=== PATIENT | male | born 1975 | race Hispanic/Latino ===

== ENCOUNTER → 2018-07-12 | Outpatient (CLI) | payer MEDICARE ==
--- NOTE | 2018-07-12 14:46 | Diagnostic Imaging Report ---
Abdomen, 2 views. History: Stones. Findings: The intestinal gas pattern is nonobstructive. Evidence of pelvic reconstruction with screws traversing the iliac bones and sacrum. Plate and screw construct of the superior pubic rami also present. There are bilateral double-J ureteral stents in appropriate position. There are no stones along the course of the stents. There no masses or abnormal calcifications. IMPRESSION: 1. No acute abdominal abnormality. 2. No definite calcified renal or ureteral stones identified. Signed by: Dr. Stone Richards DO on 07/12/2018 2:43 PM
== END ==
LOC: RAD 11:47
PROVIDERS: ATTEND Urology
DX: N20.0 Calculus of kidney (principal)
CPT/HCPCS: 74018

== ENCOUNTER → 2018-07-29 | Outpatient (CLI) | payer MEDICARE ==
--- NOTE | 2018-07-29 16:37 | Diagnostic Imaging Report ---
Abdomen, 2 views. History: Renal calculus. Comparison: KUB 07/12/2018. Findings: Bilateral internal ureteral stents are in unchanged position. No definite stone overlying the kidneys or expected course of the ureters. A 1.7 cm hyperdensity likely represents bone which is discontinuous with the left L3 transverse process. Nonobstructive bowel gas pattern. Pelvic bony hardware with screws traversing the iliac bones and sacrum as well as a plate and screw construct of the superior pubic rami are present. IMPRESSION: Bilateral internal ureteral stents. No definite renal or ureteral stone. Signed by: Dr. Clemente Borjas MD on 07/29/2018 4:34 PM
== END ==
LOC: RAD 15:08
PROVIDERS: ATTEND Urology
DX: N20.0 Calculus of kidney (principal)
CPT/HCPCS: 74018

== ENCOUNTER → 2018-09-05 | Day surgery (SDC) | payer MEDICARE ==
[~2018-09-05] MED LIST: ACETAMINOPHEN/CODEINE 300MG - 30MG TAB ONE; CEFAZOLIN SOD 1 GM/NS 50ML 50 ML IV ONE; DEXAMETHASONE SOD PHOS INJ 4 MG/ML VIAL ONE; GLIPIZIDE5 MG PO; IOPAMIDOL 610MG/1ML 300 MG/ML VIAL IV ONE; LIDOCAINE HCL 2% LOCAL INJ 5 ML SDV VIAL INJ ONE; ONDANSETRON HCL INJ 2MG/ML 2ML 2 MG/ML VIAL ONE; PROPOFOL IV EMULSION 10 MG/ML 20 ML VIAL ONE; SEVOFLURANE INHAL SOLN 250 ML PEN BTL ONE
--- OUTSIDE RECORDS SUMMARY | 2018-09-05 12:43 | XMS REPORT | CCD ---
Author Author Auto Generated Organization [facility] Address Unknown Phone Unavailable Care Team Providers Care Property Coordinator Name Role Phone Ramone Palmer CP Allergies, Adverse Reactions, Alerts Substance Reaction Status NKDA Active Problem List Condition Effective Dates Status Diabetes mellitus Resolved Medications Medication Instructions Start Date End Date Status Toradol 30 mg/mL 60 mg, Route: IM, ONCE, Dosing 07/28/2012 07/28/2012 Completed injectable solution Weight 84.091, kg, Start date: 07/28/12 10:16:00, Stop date: 07/28/12 10:16:00 [place] 10/325 oral 1 tab, Route: PO, Dosing Weight 07/28/2012 07/28/2012 Completed tablet 84.091, kg, ONCE, Start date: 07/28/12 10:16:00, Stop date: 07/28/12 10:16:00 Flexeril 10 mg, Route: PO, ONCE, Dosing 07/28/2012 07/28/2012 Completed Weight 84.091, kg, Priority: STAT, Start date: 07/28/12 10:16:00, Stop date: 07/28/12 10:16:00 Naprosyn 500 mg oral 500 mg, 1 tab, PO, BID, PRN, 30 07/28/2012 Ordered tablet tab, Pain, Substitution Allowed [place] 10/325 oral 1 tab, PO, Q6H, PRN, 15 tab, for 07/28/2012 Ordered tablet pain, Substitution Allowed, Maintenance Flexeril 10 mg oral 10 mg, PO, TID, PRN, 30 tab, Muscle 07/28/2012 08/07/2012 Ordered tablet Spasm, Substitution Allowed Vital Signs Most recent to oldest [Reference Range]: 1 Height 170.18 cm (07/28/2012 09:19:00) Weight 84.091 kg (07/28/2012 09:19:00)
--- OUTSIDE RECORDS SUMMARY | 2018-09-05 12:44 | XMS REPORT | CCD ---
Author Author Auto Generated Organization [facility] Address Unknown Phone Unavailable Care Team Providers Care Porter [employer] Name Role Phone Coretta Cleveland CP Allergies, Adverse Reactions, Alerts Substance Reaction Status NKDA Active Problem List Condition Effective Dates Status Diabetes Mellitus Resolved Pseudomonas1, 2, 3 01/03/2013 Active 1urine 01/03/13 2urine 3Problem added by Discern Expert. Medications Medication Instructions Start Date End Date Status Lovenox 80 mg, 0.8 mL, Route: SUB-Q, Drug 11/25/2012 11/25/2012 Completed form: INJ, ONCE, Dosing Weight 79.545, kg, Priority: Routine, Start date: 11/25/12 21:00:00, Stop date: 11/25/12 21:00:00Nurse to ensure documentation of patient education per anticoagulation policy. (Same as: Lovenox) influenza virus 0.5 mL, Route: IM, Drug Form: SUSP, 11/16/2012 11/16/2012 Completed vaccine, inactivated Start date: 11/16/12 9:00:00, Stop date: 11/16/12 9:00:00 pneumococcal 0.5 ml, Route: IM, Drug Form: INJ, 11/16/2012 11/16/2012 Completed 23-valent vaccine Start date: 11/16/12 9:00:00, Stop date: 11/16/12 9:00:00 potassium chloride 40 mEq, 30 mL, Route: PO, Drug 12/17/2012 12/17/2012 Completed 20 mEq/15 mL oral form: LIQ, ONCE, Dosing Weight liquid 79.545, kg, Priority: NOW, Start date: 12/17/12 20:45:00, Stop date: 12/17/12 20:45:00(Same as: Potassium Chloride) Omnipaque 350mg/ml 110 mL, Route: IVP, Drug Form: 11/19/2012 11/19/2012 Completed SOLN, Dosing Weight 79.545, kg, ONCALL, STAT, Start date: 11/19/12 18:05:00, Duration: 1 doses or times, Dose=2.2ml/kg, Max [id number] -- "To be infused by Radiology Staff ONLY" Dose=2.2ml/kg, Max [id number]=[id number] -- "To be infused by Radiology Staff ONLY" NS (Bolus) IV 500 mL 500 mL, Rate: 500 ml/hr, Infuse 12/06/2012 12/06/2012 Completed over: 1 hr, Route: IV, Dosing Weight 79.545 kg, Total Volume: 500, Priority: STAT, Start date: 12/06/12 20:24:00, Duration: 1 doses or times, Stop date: 12/06/12 21:23:00, Bolus Dose Bolus Dose potassium chloride 40 mEq, 30 mL, Route: PO, Drug 11/18/2012 11/18/2012 Completed 20 mEq/15 mL oral form: LIQ, ONCE, Dosing Weight liquid 79.545, kg, Start date: 11/18/12 19:11:00, Stop date: 11/18/12 19:11:00(Same as: Potassium Chloride) Ancef 2 gm, 50 mL, Route: IVPB, Drug 11/15/2012 11/18/2012 Discontinued form: INJ, ABXQ8H, Dosing Weight 79.545, kg, Start date: 11/15/12 16:00:00, Duration: 30 day, Stop date: 12/15/12 8:00:00 vecuronium 10 mg, Route: IVP, Drug form: 11/18/2012 11/18/2012 Completed PDR/INJ, ONCE, Dosing Weight 79.545, kg, Start date: 11/18/12 7:57:00, Stop date: 11/18/12 7:57:00(Same As: Norcuron) Neutra-Phos 2 pkt, Route: PO, Drug Form: 11/17/2012 11/20/2012 Discontinued PDR/REC, Dosing Weight 79.545, kg, Q6H, Start date: 11/17/12 12:00:00, Duration: 5 day, Stop date: 11/22/12 6:00:00(Same as: Neutra-Phos) Each 1.25 gm pkt has 250mg phosphorous. Mix w/2.5oz water and stir. Santyl 1 appl, Route: TOP, Daily, Drug 11/21/2012 12/07/2012 Discontinued form: OINT, Start date: 11/21/12 9:00:00, Duration: 30 day, Stop date: 12/20/12 9:00:00(Same As: Santyl) vancomycin + Sodium 1.25 gm, Route: IVPB, ABXQ8H, 11/19/2012 11/21/2012 Discontinued Chloride 0.9% IV 250 Dosing Weight 79.545, kg, Start mL date: 11/19/12 22:00:00, Stop date: 12/19/12 14:00:00(Same As: Vancocin) Vancomycin FOR IV SET ONLY cefepime 2 gm, Route: IV, Drug form: INJ, 01/03/2013 01/07/2013 Discontinued Q12H, Dosing Weight 79.545, kg, Start date: 01/03/13 21:00:00, Duration: 7 day, Stop date: 01/10/13 9:00:00(Same as: Maxipime) normal saline 0.9% 1,000 mL, Rate: 100 ml/hr, Infuse 11/24/2012 11/24/2012 Discontinued IV 1,000 mL over: 10 hr, Route: IV, Dosing Weight 79.545 kg, Total Volume: 1,000, Start date: 11/24/12 10:07:00, Duration: 30 day, Stop date: 12/24/12 10:06:00 Lactated Ringers 1,000 mL, Rate: 1,000 ml/hr, Infuse 11/15/2012 11/16/2012 Discontinued (Bolus) IV 1,000 mL over: 1 hr, Route: IV, Dosing Weight 79.545 kg, Total Volume: 1,000, Start date: 11/15/12 10:05:00, Duration: 30 day, Stop date: 12/15/12 10:04:00 NS 1,000 mL 1,000 mL, Rate: 125 ml/hr, Infuse 12/15/2012 12/19/2012 Discontinued over: 8 hr, Route: IV, Dosing Weight 79.545 kg, Total Volume: 1,000, Start date: 12/15/12 10:53:00, Stop date: 01/14/13 10:52:00 warfarin 2 mg, 1 tab, Route: PO, Drug form: 01/09/2013 01/09/2013 Completed TAB, Q5PM, Dosing Weight 79.545, kg, Start date: 01/09/13 17:00:00, Duration: 1 doses or times, Stop date: 01/09/13 17:00:00 warfarin 2 mg, 1 tab, Route: PO, Drug form: 01/10/2013 01/10/2013 Completed TAB, Q5PM, Dosing Weight 79.545, kg, Start date: 01/10/13 17:00:00, Duration: 1 doses or times, Stop date: 01/10/13 17:00:00Nurse to ensure documentation of patient education per anticoagulation policy.Avoid large intake of vitamin-K containing foods diet.(Same As: Coumadin) cefazolin 2 gm, Route: IVP, ONCE, Dosing 12/16/2012 12/16/2012 Completed Weight 79.545, kg, Start date: 12/16/12 18:55:00, Stop date: 12/16/12 18:55:00 warfarin 1 mg, 1 tab, Route: PO, Drug form: 01/05/2013 01/05/2013 Completed TAB, Q5PM, Dosing Weight 79.545, kg, Start date: 01/05/13 17:00:00, Duration: 1 doses or times, Stop date: 01/05/13 17:00:00Nurse to ensure documentation of patient education per anticoagulation policy.Avoid large intake of vitamin-K containing foods diet.(Same As: Coumadin) parenteral nutrition 800 mL, Rate: as directed, Route: 11/23/2012 11/24/2012 Discontinued solution IV, Dosing Weight 79.545 kg, Total w/electrolytes 800 Volume: 800, Start date: 11/23/12 mL 18:00:00, Duration: 30 hr, Stop date: 11/24/12 23:59:00Per hospital policy, bag must be changed every 24hr. naloxone 0.04 mg, 0.1 mL, Route: IVP, Drug 11/28/2012 11/28/2012 Discontinued form: INJ, Q2MIN, Dosing Weight 79.545, kg, PRN Narcotic Reversal, Start date: 11/28/12 18:49:00, Duration: 8 doses or times, Stop date: 11/29/12 0:00:00Same as Narcan flumazenil 0.2 mg, 2 mL, Route: IVP, Drug 11/28/2012 11/28/2012 Discontinued form: INJ, PRN, Dosing Weight 79.545, kg, PRN Benzodiazepine Reversal, Initial dose, Start date: 11/28/12 18:49:00, Duration: 30 day, Stop date: 12/28/12 18:48:00(Same as: Romazicon) hydromorphone 0.5 mg, 0.25 mL, Route: IVP, Drug 11/28/2012 11/28/2012 Discontinued form: INJ, Q5Min, Dosing Weight 79.545, kg, PRN Pain Score 7-10, Start date: 11/28/12 18:49:00, Duration: 5 doses or times, Stop date: 11/29/12 0:00:00(Same as: Dilaudid) ondansetron 4 mg, 2 mL, Route: IVP, Drug form: 11/28/2012 11/28/2012 Discontinued INJ, ONCE, Dosing Weight 79.545, kg, PRN Nausea & Vomiting, Start date: 11/28/12 18:49:00(Same as: Zofran) Dilaudid 0.5 mg, 0.25 mL, Route: IV, Drug 11/25/2012 11/25/2012 Completed form: INJ, ONCE, Dosing Weight 79.545, kg, Priority: NOW, Start date: 11/25/12 22:34:00, Stop date: 11/25/12 22:34:00(Same as: Dilaudid) OXYcodone 5 mg 10 mg, 2 tab, Route: PO, Drug form: 11/24/2012 12/08/2012 Discontinued immediate release TAB, Q4H, Dosing Weight 79.545, kg, Start date: 11/24/12 8:00:00, Stop date: 12/24/12 4:00:00(Same as: Roxicodone) calcium chloride + 1,000 mg, 10 mL, Route: IVPB, ONCE, 11/22/2012 11/22/2012 Completed Sodium Chloride 0.9% Dosing Weight 79.545, kg, Priority: IV 50 mL STAT, Start date: 11/22/12 10:23:00, Stop date: 11/22/12 10:23:00 potassium chloride 20 mEq, Route: IVPB, Q2H, Dosing 11/22/2012 11/22/2012 Canceled Weight 79.545, kg, Total dose=40 mEq, Start date: 11/22/12 12:00:00, Duration: 2 doses or times, Stop date: 11/22/12 14:00:00 potassium chloride 20 mEq, 100 mL, Route: IVPB, Drug 11/21/2012 11/21/2012 Completed form: INJ, Q1H, Dosing Weight 79.545, kg, Total iutz=327 mEq, Start date: 11/21/12 17:00:00, Duration: 1 doses or times, Stop date: 11/21/12 17:00:00(Same as: KCL) Infuse no faster than 10 mEq/hr if given peripherally. Sodium Chloride 0.9% 250 mL, Rate: weight caller for use with 11/15/2012 11/16/2012 Discontinued (titrate) 250 mL blood product administration, Dosing Weight 79.545, kg, Route: IV, Total Volume: 250, Duration: 30 day, Stop date: 12/15/12 22:14:00, Replace Every: 24 hr propranolol 10 mg, 1 tab, Route: PO, Drug form: 11/29/2012 01/11/2013 Discontinued TAB, Q8H, Dosing Weight 79.545, kg, Start date: 11/29/12 16:00:00, Duration: 30 day, Stop date: 01/28/13 8:00:00Give with food.(Same as: Inderal) sodium phosphate 15 mmol, Route: IVPB, PRN, Dosing 11/17/2012 11/17/2012 Discontinued Weight 79.545, kg, PRN Abnormal Lab Result, Start date: 11/17/12 8:40:00, Duration: 30 day, Stop date: 12/17/12 8:39:00 NS (Bolus) IV 1,000 1,000 mL, Rate: 1,000 ml/hr, Infuse 12/15/2012 12/15/2012 Completed mL over: 1 hr, Route: IV, Dosing Weight 79.545 kg, Total Volume: 1,000, Priority: STAT, Start date: 12/15/12 10:52:00, Duration: 1 doses or times, Stop date: 12/15/12 11:51:00, Bolus Dose Bolus Dose ondansetron 4 mg, 2 mL, Route: IVP, Drug form: 12/06/2012 12/06/2012 Discontinued INJ, ONCE, Dosing Weight 79.545, kg, PRN Nausea & Vomiting, Start date: 12/06/12 13:21:00(Same as: Zofran) naloxone 0.04 mg, 0.1 mL, Route: IVP, Drug 12/06/2012 12/06/2012 Discontinued form: INJ, Q2MIN, Dosing Weight 79.545, kg, PRN Narcotic Reversal, Start date: 12/06/12 13:21:00, Duration: 8 doses or times, Stop date: 12/07/12 0:00:00Same as Narcan hydromorphone 0.5 mg, 0.25 mL, Route: IVP, Drug 12/06/2012 12/06/2012 Completed form: INJ, Q5Min, Dosing Weight 79.545, kg, PRN Pain Score 7-10, Start date: 12/06/12 13:21:00, Duration: 5 doses or times, Stop date: 12/07/12 0:00:00(Same as: Dilaudid) flumazenil 0.2 mg, 2 mL, Route: IVP, Drug 12/06/2012 12/06/2012 Discontinued form: INJ, PRN, Dosing Weight 79.545, kg, PRN Benzodiazepine Reversal, Initial dose, Start date: 12/06/12 13:21:00, Duration: 30 day, Stop date: 01/05/13 12:20:00(Same as: Romazicon) Omnipaque 350mg/ml 100 mL, Route: IVP, Drug Form: 11/23/2012 11/23/2012 Completed SOLN, Dosing Weight 79.545, kg, ONCALL, STAT, Start date: 11/23/12 14:09:00, Duration: 1 doses or times, Stop date: 11/24/12 0:00:00, Dose=2.2ml/kg, Max [id number] -- "To be infused by Radiology Staff ONLY" Dose=2.2ml/kg, Max umxz=[id number] -- "To be infused by Radiology Staff ONLY"(Same as:Omnipaque 350). Demerol HCl 12.5 mg, Route: IVP, ONCE, Dosing 12/06/2012 12/06/2012 Completed Weight 79.545, kg, Start date: 12/06/12 14:07:00, Stop date: 12/06/12 14:07:00 Dextrose 50% Syringe 25 gm, 50 mL, Route: IVP, Drug 12/16/2012 12/17/2012 Discontinued Form: INJ, Dosing Weight 79.545, kg, PRN, PRN Blood Glucose Results, Start date: 12/16/12 8:00:00, Duration: 30 day, Stop date: 01/15/13 6:59:00 Insulin regular 100 99 mL, Rate: Start Insulin Drip Per 12/16/2012 12/17/2012 Discontinued unit + Sodium ICU Protocol, Dosing Weight 79.545, Chloride 0.9% kg, Route: IVPB, Total Volume: 100, (titrate) 99 mL Start Date: 12/16/12 8:00:00, Duration: 30 day, Stop date: 01/15/13 7:59:00, Replace Every: 24 hr, Initial Insulin Drip Rate (units/hour)=(Fast... Initial Insulin Drip Rate (units/hour)=(Fasting Blood Glucose-60)X0.03 "multiplier". Dextrose 50% Syringe 12.5 gm, 25 mL, Route: IVP, Drug 12/16/2012 12/17/2012 Discontinued Form: INJ, Dosing Weight 79.545, kg, PRN, PRN Blood Glucose Results, Start date: 12/16/12 8:00:00, Duration: 30 day, Stop date: 01/15/13 6:59:00 Loperamide HCl Oral Loperamide HCl Oral Suspension 12/29/2012 01/04/2013 Discontinued Suspension 1mg/7.5ml 1mg/7.5ml, 2 mg, 15 mL, Drug form: MISC, Route: PO, Q4H, 12/29/12 23:30:00, Stop date: 01/28/13 20:00:00 ibuprofen 800 mg, 1 tab, Route: PO, Drug 11/28/2012 11/28/2012 Completed form: TAB, ONCE, Dosing Weight 79.545, kg, Start date: 11/28/12 8:59:00, Stop date: 11/28/12 8:59:00(Same as: Motrin)"Do Not Crush" Take with food. Versed 5 mg, 5 mL, Route: IVP, Drug form: 11/18/2012 11/19/2012 Completed INJ, ONCALL, Dosing Weight 79.545, kg, Start date: 11/18/12 8:00:00, Duration: 30 day, Stop date: 12/18/12 7:59:00(Same as: Versed) fentanyl 100 microgram, 2 mL, Route: IVP, 11/18/2012 11/18/2012 Completed Drug form: INJ, ONCE, Dosing Weight 79.545, kg, Start date: 11/18/12 7:57:00, Stop date: 11/18/12 7:57:00(Same as: Sublimaze) Preservative free. calcium gluconate + 2 gm, 20 mL, Route: IVPB, ONCE, 11/24/2012 11/24/2012 Completed Sodium Chloride 0.9% Dosing Weight 79.545, kg, Start IV 100 mL date: 11/24/12 7:25:00, Duration: 1 doses or times, Stop date: 11/24/12 7:25:00, For Ionized Ca=1.0 - 1.03 mMol/L For Ionized Ca=1.0 - 1.03 mMol/L Insulin regular 4 unit, Route: SUB-Q, PRN, Dosing 11/20/2012 11/20/2012 Discontinued Weight 79.545, kg, PRN Abnormal Lab Result, Start date: 11/20/12 9:34:00, Duration: 30 day, Stop date: 12/20/12 9:33:00, For FSBG 126mg/dL - 140mg/dL For FSBG 126mg/dL - 140mg/dL Dextrose 50% Syringe 50 mL, Route: IVP, Dosing Weight 11/20/2012 11/20/2012 Discontinued 79.545, kg, PRN, PRN Abnormal Lab Result, Start date: 11/20/12 9:34:00, Duration: 30 day, Stop date: 12/20/12 9:33:00, For FSBG < 40mg/dL For FSBG < 40mg/dL Dextrose 50% Syringe 25 mL, Route: IVP, Dosing Weight 11/20/2012 11/20/2012 Discontinued 79.545, kg, PRN, PRN Abnormal Lab Result, Start date: 11/20/12 9:34:00, Duration: 30 day, Stop date: 12/20/12 9:33:00, For FSBG 40mg/dL - 60mg/dL For FSBG 40mg/dL - 60mg/dL Insulin regular 8 unit, Route: SUB-Q, PRN, Dosing 11/20/2012 11/20/2012 Discontinued Weight 79.545, kg, PRN Abnormal Lab Result, Start date: 11/20/12 9:34:00, Duration: 30 day, Stop date: 12/20/12 9:33:00, For FSBG > 161mg/dL For FSBG > 161mg/dL Insulin regular 6 unit, Route: SUB-Q, PRN, Dosing 11/20/2012 11/20/2012 Discontinued Weight 79.545, kg, PRN Abnormal Lab Result, Start date: 11/20/12 9:34:00, Duration: 30 day, Stop date: 12/20/12 9:33:00, For FSBG 141mg/dL - 160mg/dL For FSBG 141mg/dL - 160mg/dL Chloraseptic 1.4% 1 spray, Route: TOP, Q2H, Drug 11/28/2012 01/11/2013 Discontinued spray form: SPRY, PRN Sore Throat, Start date: 11/28/12 12:25:00, Duration: 30 day, Stop date: 01/27/13 12:24:00Chloraseptic [place](Same as: Chloraseptic, Sore Throat [place]) cefepime 1 gm, Route: IVPB, Drug form: INJ, 12/17/2012 12/23/2012 Discontinued ABXQ6H, Dosing Weight 79.545, kg, (CrCl >/=50 ml/min), Start date: 12/17/12 12:00:00, Duration: 30 day, Stop date: 01/16/13 4:00:00(Same As: Maxipime) insulin detemir 30 unit, 0.3 mL, Route: SUB-Q, Drug 11/23/2012 11/25/2012 Discontinued form: INJ, Q12H, Dosing Weight 79.545, kg, Start date: 11/23/12 9:49:00, Duration: 30 day, Stop date: 12/23/12 9:00:00Same as Levemir "single patient use only" Lactated Ringers IV 1,000 mL, Rate: 125 ml/hr, Infuse 11/15/2012 11/17/2012 Discontinued 1,000 mL over: 8 hr, Route: IV, Dosing Weight 79.545 kg, Total Volume: 1,000, Start date: 11/15/12 21:15:00, Duration: 30 day, Stop date: 12/15/12 21:14:00 Sodium Chloride 0.9% 250 mL, Rate: weight caller for use with 11/15/2012 11/19/2012 Discontinued (titrate) 250 mL blood product administration, Dosing Weight 79.545, kg, Route: IV, Total Volume: 250, Duration: 30 day, Stop date: 12/15/12 7:42:00, Replace Every: 24 hr magnesium sulfate 2 gm, 50 mL, Route: IVPB, Drug 01/03/2013 01/03/2013 Completed 2gm / NS 50ml form: INJ, ONCE, Dosing Weight (premixed) 79.545, kg, Start date: 01/03/13 10:26:00, Duration: 2 hr, Stop date: 01/03/13 10:26:00 celecoxib 100 mg 200 mg, 2 cap, PO, Q12H, 1 cap, 01/10/2013 Ordered oral capsule Substitution Allowed, CAP Insulin regular 6 unit, 0.06 mL, Route: SUB-Q, Drug 11/15/2012 11/17/2012 Discontinued form: SOLN, PRN, Dosing Weight 79.545, kg, PRN Abnormal Lab Result, Start date: 11/15/12 7:42:00, Duration: 30 day, Stop date: 12/15/12 7:41:00, For FSBG 141mg/dL - 160mg/dL For FSBG 141mg/dL - 160mg/dL(Same as: Humulin R) Roll in palms of hands gently; Do not shake vigorously. "single patient use only"(Restricted to patients requiring a dose > 60 units) Stable for 28 days at room temperatureExpires in days from Date Insulin regular 4 unit, 0.04 mL, Route: SUB-Q, Drug 11/15/2012 11/17/2012 Discontinued form: SOLN, PRN, Dosing Weight 79.545, kg, PRN Abnormal Lab Result, Start date: 11/15/12 7:42:00, Duration: 30 day, Stop date: 12/15/12 7:41:00, For FSBG 126mg/dL - 140mg/dL For FSBG 126mg/dL - 140mg/dL(Same as: Humulin R) Roll in palms of hands gently; Do not shake vigorously. "single patient use only"(Restricted to patients requiring a dose > 60 units) Stable for 28 days at room temperatureExpires in days from Date Dextrose 50% Syringe 12.5 gm, 25 mL, Route: IVP, Drug 11/15/2012 11/15/2012 Discontinued Form: INJ, Dosing Weight 79.545, kg, PRN, PRN Abnormal Lab Result, Start date: 11/15/12 7:42:00, Duration: 30 day, Stop date: 12/15/12 7:41:00, For FSBG 40mg/dL - 60mg/dL For FSBG 40mg/dL - 60mg/dL Insulin regular 8 unit, 0.08 mL, Route: SUB-Q, Drug 11/15/2012 11/17/2012 Discontinued form: SOLN, PRN, Dosing Weight 79.545, kg, PRN Abnormal Lab Result, Start date: 11/15/12 7:42:00, Duration: 30 day, Stop date: 12/15/12 7:41:00, For FSBG > 161mg/dL For FSBG > 161mg/dL(Same as: Humulin R) Roll in palms of hands gently; Do not shake vigorously. "single patient use only"(Restricted to patients requiring a dose > 60 units) Stable for 28 days at room temperatureExpires in days from Date Dextrose 50% Syringe 25 gm, 50 mL, Route: IVP, Drug 11/15/2012 11/15/2012 Discontinued Form: INJ, Dosing Weight 79.545, kg, PRN, PRN Abnormal Lab Result, Start date: 11/15/12 7:42:00, Duration: 30 day, Stop date: 12/15/12 7:41:00, For FSBG < 40mg/dL For FSBG < 40mg/dL Lomotil oral tablet 2 tab, PO, Q6H, 1 tab, Substitution 01/10/2013 Ordered Allowed, Maintenance, TAB Diflucan 400 mg, 2 tab, Route: NG, Drug 11/29/2012 12/05/2012 Discontinued form: TAB, Q24H, Dosing Weight 79.545, kg, Start date: 11/29/12 12:00:00, Duration: 30 day, Stop date: 12/28/12 12:00:00(Same as: Diflucan) magnesium sulfate 2 gm, 50 mL, Route: IVPB, Drug 11/16/2012 11/16/2012 Completed form: INJ, Q2H, Dosing Weight 79.545, kg, Total dose=4 gm, Priority: Routine, Start date: 11/16/12 0:15:00, Duration: 1 doses or times, Stop date: 11/16/12 0:15:00 Remove - lidocaine 1 patch, Route: TOP, Daily, Drug 12/19/2012 12/24/2012 Discontinued topical patch form: ERFILM, Start date: 12/19/12 11:00:00, Duration: 30 day, Stop date: 01/18/13 9:00:00 [place] 10/325 oral 1 tab, Route: PO, Drug Form: TAB, 12/22/2012 01/11/2013 Discontinued tablet Dosing Weight 79.545, kg, Q4H, Start date: 12/22/12 22:00:00, Stop date: 01/21/13 18:00:00Do not exceed 4gm/day of acetaminophen. (Same as: [place] 325/10) potassium chloride 20 mEq, 100 mL, Route: IVPB, Q2H, 11/19/2012 11/19/2012 Completed Dosing Weight 79.545, kg, Total dose=40 mEq, Start date: 11/19/12 6:00:00, Duration: 2 doses or times, Stop date: 11/19/12 8:00:00(Same as: KCL) Infuse no faster than 10 mEq/hr if given peripherally. magnesium sulfate 2 gm, 50 mL, Route: IVPB, Drug 11/19/2012 11/19/2012 Completed form: INJ, Q2H, Dosing Weight 79.545, kg, Total dose=2 gm, Start date: 11/19/12 6:00:00, Duration: 1 doses or times, Stop date: 11/19/12 6:00:00 Lactated Ringers 1,000 mL, Rate: 1,000 ml/hr, Infuse 11/19/2012 11/21/2012 Discontinued (Bolus) IV 1,000 mL over: 1 hr, Route: IV, Dosing Weight 79.545 kg, Total Volume: 1,000, Start date: 11/19/12 8:53:00, Duration: 30 day, Stop date: 12/19/12 8:52:00 bacitracin topical Route: TOP, QID, Drug form: OINT, 11/16/2012 01/08/2013 Discontinued Start date: 11/16/12 21:09:00, Duration: 30 day, Stop date: 01/15/13 21:00:00 famotidine 20 mg, 2 mL, Route: IVPB, Drug 11/15/2012 11/24/2012 Discontinued form: INJ, Q12H, Dosing Weight 79.545, kg, Start date: 11/15/12 9:00:00, Duration: 30 day, Stop date: 12/14/12 21:00:00(Same as: Pepcid)Can be dilute in 5-10cc NS IVP: Slow IV push over at least 2 minutes. labetalol 10 mg, 2 mL, Route: IVP, Drug form: 11/22/2012 11/23/2012 Completed INJ, Q15Min, Dosing Weight 79.545, kg, PRN Hypertension, Start date: 11/22/12 17:46:00, Duration: 3 doses or times, Stop date: 11/23/12 0:00:00 OXYcodone 5 mg/5 mL 5 mg, 5 mL, Route: PO, Drug form: 11/17/2012 11/20/2012 Discontinued oral solution LIQ, Q4H, Dosing Weight 79.545, kg, Start date: 11/17/12 4:00:00, Duration: 30 day, Stop date: 12/17/12 0:00:00(Same as: 'Roxicodone) Flomax 0.4 mg, 1 cap, Route: PO, Drug 12/09/2012 12/19/2012 Discontinued form: CAP, After Dinner, Dosing Weight 79.545, kg, Start date: 12/09/12 17:00:00, Duration: 30 day, Stop date: 01/08/13 16:59:00(Same As: Flomax) "Do Not Crush" [place] 10 oral 1 tab, PO, Q4H, 1 tab, Substitution 01/10/2013 Ordered tablet Allowed, Maintenance, TAB Lovenox 80 mg, 0.8 mL, Route: SUB-Q, Drug 11/26/2012 11/29/2012 Discontinued form: INJ, Q12H, Dosing Weight 79.545, kg, Start date: 11/26/12 21:00:00, Duration: 30 day, Stop date: 12/26/12 9:00:00Nurse to ensure documentation of patient education per anticoagulation policy. (Same as: Lovenox) Coumadin 5 mg, 1 tab, Route: PO, Drug form: 12/30/2012 12/30/2012 Completed TAB, Daily, Start date: 12/30/12 21:00:00, Duration: 1 doses or times, Stop date: 12/30/12 21:00:00Nurse to ensure documentation of patient education per anticoagulation policy.Avoid large intake of vitamin-K containing foods diet.(Same As: Coumadin) calcium gluconate + 2 gm, 20 mL, Route: IVPB, ONCE, 11/21/2012 11/21/2012 Completed Sodium Chloride 0.9% Dosing Weight 79.545, kg, Start IV 80 mL date: 11/21/12 14:16:00, Duration: 1 doses or times, Stop date: 11/21/12 14:16:00, For Ionized Ca=1.0 - 1.03 mMol/L For Ionized Ca=1.0 - 1.03 mMol/L Sodium Chloride 0.9% 250 mL, Rate: weight caller for use with 11/16/2012 11/16/2012 Discontinued (titrate) 250 mL blood product administration, Dosing Weight 79.545, kg, Route: IV, Total Volume: 250, Duration: 30 day, Stop date: 12/16/12 4:00:00, Replace Every: 24 hr FENTanyl - one time 50 microgram, 1 mL, Route: IVP, 11/22/2012 11/22/2012 Completed ICU bolus dose Drug form: INJ, ONCE, Dosing Weight 79.545, kg, Start date: 11/22/12 17:46:00, Stop date: 11/22/12 17:46:00(Same as: Sublimaze) Preservative free. Lyrica 100 mg, 2 cap, Route: PO, Drug 11/17/2012 12/31/2012 Discontinued form: CAP, Q8H, Dosing Weight 79.545, kg, Start date: 11/17/12 0:29:00, Duration: 30 day, Stop date: 01/16/13 0:00:00Same as Lyrica Lantus 20 unit, 0.2 mL, Route: SUB-Q, Drug 01/09/2013 01/11/2013 Discontinued form: INJ, Before Breakfast, Dosing Weight 79.545, kg, Start date: 01/09/13 7:30:00, Duration: 30 day, Stop date: 02/07/13 7:30:00Same as Lantus Solostar PEN"single patient use only" Stable for 28 days at room temperature.Expires in days from Date Lactated Ringers 500 mL, Rate: 1,000 ml/hr, Infuse 12/16/2012 12/16/2012 Completed (Bolus) IV 500 mL over: 0.5 hr, Route: IV, Dosing Weight 79.545 kg, Total Volume: 500, Start date: 12/16/12 23:29:00, Duration: 1 doses or times, Stop date: 12/16/12 23:58:00 Zofran 4 mg, 2 mL, Route: IV, Drug form: 01/03/2013 01/11/2013 Discontinued INJ, Q8H, Dosing Weight 79.545, kg, PRN Nausea, Start date: 01/03/13 21:22:00, Duration: 30 day, Stop date: 02/02/13 21:21:00(Same as: Zofran) vancomycin 2 gm, 500 mL, Route: IVPB, Drug 11/19/2012 11/19/2012 Completed form: SOLN, ONCE, Dosing Weight 79.545, kg, Start date: 11/19/12 8:53:00, Stop date: 11/19/12 8:53:00Same as: Vancocin Saline Flush 0.9% 5 mL, Route: IVP, Drug Form: INJ, 11/15/2012 01/11/2013 Discontinued kg, PRN, PRN Line Flush, Administer at least once every 12 hours, Start date: 11/15/12 4:06:00, Duration: 30 day, Stop date: 02/13/13 3:05:00(Same as: BD Posiflush) methadone 5 mg, 1 tab, Route: PO, Drug form: 12/19/2012 12/20/2012 Discontinued TAB, Q8H, Dosing Weight 79.545, kg, Priority: NOW, Start date: 12/19/12 12:21:00, Duration: 30 day, Stop date: 01/18/13 8:00:00(Same as: Dolophine) Flomax 0.4 mg, 1 cap, Route: PO, Drug 01/07/2013 01/11/2013 Discontinued form: CAP, After Dinner, Dosing Weight 79.545, kg, Start date: 01/07/13 17:00:00, Duration: 30 day, Stop date: 02/05/13 17:00:00(Same As: Flomax) "Do Not Crush" metFORmin 500 mg 500 mg, 1 tab, Route: PO, Drug 11/30/2012 01/11/2013 Discontinued oral tablet form: TAB, BID, Dosing Weight 79.545, kg, Start date: 11/30/12 17:00:00, Duration: 30 day, Stop date: 01/29/13 9:00:00(Same as: Glucophage) Take with meal D5W 1/2NS + KCL 1,000 mL, Rate: 110 ml/hr, Infuse 12/04/2012 12/06/2012 Discontinued 20mEq/L 1000ml over: 9.1 hr, Route: IV, Dosing (Premix) 1,000 mL Weight 79.545 kg, Total Volume: 1,000, Start date: 12/04/12 0:01:00, Duration: 30 day, Stop date: 01/03/13 0:00:00PREMIX IV - Do Not Alter OXYcodone 5 mg 5 mg, 1 tab, Route: PO, Drug form: 11/22/2012 11/23/2012 Discontinued immediate release TAB, Q4H, Dosing Weight 79.545, kg, PRN Pain, Start date: 11/22/12 10:05:00, Duration: 30 day, Stop date: 12/22/12 10:04:00(Same as: Roxicodone) Lantus 30 unit, Route: SUB-Q, Drug form: 11/26/2012 11/25/2012 Canceled SOLN, Daily, Dosing Weight 79.545, kg, Start date: 11/26/12 9:00:00, Duration: 30 day, Stop date: 12/25/12 9:00:00 NS (Bolus) IV 1,000 1,000 mL, Rate: 1,000 ml/hr, Infuse 12/07/2012 12/07/2012 Completed mL over: 1 hr, Route: IV, Dosing Weight 79.545 kg, Total Volume: 1,000, Priority: STAT, Start date: 12/07/12 3:41:00, Duration: 1 doses or times, Stop date: 12/07/12 4:40:00, Bolus Dose Bolus Dose magnesium sulfate 2 gm, 50 mL, Route: IVPB, Drug 12/17/2012 12/17/2012 Completed form: INJ, Q2H, Dosing Weight 79.545, kg, Total dose=4 gm, Start date: 12/17/12 0:00:00, Duration: 2 doses or times, Stop date: 12/17/12 2:00:00 magnesium oxide 400 mg, 1 tab, Route: PO, Drug 12/25/2012 12/25/2012 Completed form: TAB, ONCE, Dosing Weight 79.545, kg, Start date: 12/25/12 15:45:00, Stop date: 12/25/12 15:45:00(Same as: Mag-Ox 400)Magnesium oxide 449xy=117wk elemental magnesiumDose=____mg magnesium oxide (___mg elemental magnesium) warfarin 2.5 mg, 1 tab, Route: PO, Drug 01/03/2013 01/03/2013 Completed form: TAB, Q5PM, Dosing Weight 79.545, kg, Start date: 01/03/13 17:00:00, Duration: 1 doses or times, Stop date: 01/03/13 17:00:00Nurse to ensure documentation of patient education per anticoagulation policy.Avoid large intake of vitamin-K containing foods diet.(Same As: Coumadin) ondansetron 4 mg, 2 mL, Route: IVP, Drug form: 11/17/2012 11/18/2012 Discontinued INJ, ONCE, Dosing Weight 79.545, kg, PRN Nausea & Vomiting, Start date: 11/17/12 18:28:00(Same as: Zofran) naloxone 0.04 mg, 0.1 mL, Route: IVP, Drug 11/17/2012 11/18/2012 Completed form: INJ, Q2MIN, Dosing Weight 79.545, kg, PRN Narcotic Reversal, Start date: 11/17/12 18:28:00, Duration: 8 doses or times, Stop date: 11/18/12 0:00:00Same as Narcan flumazenil 0.2 mg, 2 mL, Route: IVP, Drug 11/17/2012 11/18/2012 Discontinued form: INJ, PRN, Dosing Weight 79.545, kg, PRN Benzodiazepine Reversal, Initial dose, Start date: 11/17/12 18:28:00, Duration: 30 day, Stop date: 12/17/12 18:27:00(Same as: Romazicon) hydromorphone 0.5 mg, 0.25 mL, Route: IVP, Drug 11/17/2012 11/18/2012 Completed form: INJ, Q5Min, Dosing Weight 79.545, kg, PRN Pain Score 7-10, Start date: 11/17/12 18:28:00, Duration: 5 doses or times, Stop date: 11/18/12 0:00:00(Same as: Dilaudid) labetalol 5 mg, 1 mL, Route: IVP, Drug form: 11/17/2012 11/18/2012 Completed INJ, Q5Min, Dosing Weight 79.545, kg, PRN Elevated BP, Start date: 11/17/12 18:28:00, Duration: 5 doses or times, Stop date: 11/18/12 0:00:00 FENTanyl 1000 mcg in 1,000 microgram, 20 mL, Rate: 11/15/2012 11/16/2012 Discontinued 20 mL (titrate) IV Titrate., Dosing Weight 79.545, kg, 1,000 microgram Route: IV, Total Volume: 20, Duration: 30 day, Stop date: 12/15/12 8:23:00, Replace Every: 24 hr magnesium oxide 400 mg, 1 tab, Route: PO, Drug 12/13/2012 12/13/2012 Completed form: TAB, ONCE, Dosing Weight 79.545, kg, Start date: 12/13/12 8:56:00, Stop date: 12/13/12 8:56:00(Same as: Mag-Ox 400)Magnesium oxide [id number] elemental magnesiumDose=____mg magnesium oxide (___mg elemental magnesium) Omnipaque 350mg/ml 100 mL, Route: IVP, Drug Form: 11/28/2012 11/28/2012 Completed SOLN, Dosing Weight 79.545, kg, ONCALL, STAT, Start date: 11/28/12 11:59:00, Duration: 1 doses or times, Stop date: 11/29/12 0:00:00, Dose=2.2ml/kg, Max ctxk=[id number] -- "To be infused by Radiology Staff ONLY" Dose=2.2ml/kg, Max ldzr=384wf -- "To be infused by Radiology Staff ONLY"(Same as:Omnipaque 350). Dakins Quarter 1 appl, Route: TOP, Drug Form: 12/18/2012 01/08/2013 Discontinued Strength Solution SOLN, Dosing Weight 79.545, kg, Daily, Start date: 12/18/12 9:00:00, Duration: 30 day, Stop date: 01/16/13 9:00:00(Dakin's (0.125%=1/4 strength) 473ml top SOLN) For external use only. Note: quarter strength=0.125% sodium hypochlorite. Sodium Chloride 0.9% 250 mL, Rate: weight caller for use with 11/21/2012 12/06/2012 Discontinued (titrate) 250 mL blood product administration, Dosing Weight 79.545, kg, Route: IV, Total Volume: 250, Duration: 30 day, Stop date: 12/21/12 11:35:00, Replace Every: 24 hr magnesium sulfate 2 2 gm, 50 mL, Route: IVPB, Drug 01/04/2013 01/04/2013 Completed gm in Water 50 ml form: INJ, ONCE, Dosing Weight 79.545, kg, Start date: 01/04/13 15:19:00, Duration: 2 hr, Stop date: 01/04/13 15:19:00 Visipaque 320mg/ml 90 mL, Route: IVP, Drug Form: SOLN, 11/19/2012 11/19/2012 Discontinued Dosing Weight 79.545, kg, ONCALL, STAT, Start date: 11/19/12 9:05:00, Duration: 1 doses or times, Stop date: 11/20/12 0:00:00, Dose=2.2ml/kg, Max [id number] -- "To be infused by Radiology Staff ONLY" Dose=2.2ml/kg, Max btdq=506gn -- "To be infused by Radiology Staff ONLY"(Same as: Visipaque). loperamide 2 mg, 1 cap, Route: PO, Drug form: 01/03/2013 01/11/2013 Discontinued CAP, Q4H, Dosing Weight 79.545, kg, Start date: 01/03/13 16:00:00, Duration: 30 day, Stop date: 02/02/13 12:00:00 Robaxin 1,000 mg, 2 tab, Route: PO, Drug 12/15/2012 01/11/2013 Discontinued form: TAB, Q8H, Dosing Weight 79.545, kg, Start date: 12/15/12 16:00:00, Stop date: 01/14/13 8:00:00(Same as:Robaxin) cefazolin 2 gm, Route: IVPB, ONCE, Dosing 12/06/2012 12/06/2012 Completed Weight 79.545, kg, Start date: 12/06/12 10:06:00, Duration: 1 doses or times, Stop date: 12/06/12 10:06:00 loperamide 2 mg, 1 cap, Route: PO, Drug form: 01/04/2013 01/04/2013 Completed CAP, ONCE, Start date: 01/04/13 1:00:00, Stop date: 01/04/13 1:00:00(Same as: Imodium) MAX adult dose is 8 caps/day potassium chloride 20 mEq, 100 mL, Route: IVPB, Drug 11/21/2012 11/21/2012 Completed form: INJ, Q1H, Dosing Weight 79.545, kg, Total nqpc=918 mEq, Start date: 11/21/12 15:00:00, Duration: 2 doses or times, Stop date: 11/21/12 16:00:00(Same as: KCL) Infuse no faster than 10 mEq/hr if given peripherally. magnesium sulfate 2 gm, 50 mL, Route: IVPB, Drug 12/20/2012 12/20/2012 Completed 2gm / NS 50ml form: INJ, ONCE, Dosing Weight (premixed) 79.545, kg, Start date: 12/20/12 10:52:00, Duration: 2 hr, Stop date: 12/20/12 10:52:00 Lovenox 80 mg, 0.8 mL, Route: SUB-Q, Drug 11/26/2012 11/26/2012 Completed form: INJ, ONCE, Dosing Weight 79.545, kg, Priority: STAT, Start date: 11/26/12 10:23:00, Stop date: 11/26/12 10:23:00Nurse to ensure documentation of patient education per anticoagulation policy. (Same as: Lovenox) NS (Bolus) IV 1,000 1,000 mL, Rate: 1,000 ml/hr, Infuse 12/10/2012 12/10/2012 Completed mL over: 1 hr, Route: IV, Dosing Weight 79.545 kg, Total Volume: 1,000, Priority: STAT, Start date: 12/10/12 14:22:00, Duration: 1 doses or times, Stop date: 12/10/12 15:21:00, Bolus Dose Bolus Dose Dextrose 50% Syringe 25 mL, Route: IVP, Dosing Weight 11/15/2012 11/15/2012 Discontinued 79.545, kg, PRN, PRN Abnormal Lab Result, Start date: 11/15/12 11:41:00, Duration: 30 day, Stop date: 12/15/12 11:40:00, For FSBG 40mg/dL - 60mg/dL For FSBG 40mg/dL - 60mg/dL Dextrose 50% Syringe 50 mL, Route: IVP, Dosing Weight 11/15/2012 11/15/2012 Discontinued 79.545, kg, PRN, PRN Abnormal Lab Result, Start date: 11/15/12 11:41:00, Duration: 30 day, Stop date: 12/15/12 11:40:00, For FSBG < 40mg/dL For FSBG < 40mg/dL D5W 1/2NS + KCL 1,000 mL, Rate: 125 ml/hr, Infuse 11/26/2012 11/26/2012 Deleted 20mEq/L 1000ml over: 8 hr, Route: IV, Dosing (Premix) 1000 mL Weight 79.545 kg, Total Volume: 1,000, Start date: 11/26/12 11:59:00, Duration: 30 day, Stop date: 12/26/12 11:58:00 Visipaque 320mg/ml 0 mL, Route: IVP, Drug Form: SOLN, 11/19/2012 11/19/2012 Deleted Dosing Weight 79.545, kg, ONCALL, STAT, Start date: 11/19/12 9:05:00, Duration: 1 doses or times, Dose=2.2ml/kg, Max smxb=463ej -- "To be infused by Radiology Staff ONLY" Dose=2.2ml/kg, Max uqkr=243si -- "To be infused by Radiology Staff ONLY" Versed 4 mg, 4 mL, Route: IV, Drug form: 11/18/2012 11/18/2012 Completed INJ, ONCE, Dosing Weight 79.545, kg, Priority: STAT, Start date: 11/18/12 16:02:00, Stop date: 11/18/12 16:02:00(Same as: Versed) acetaminophen-hydroc 15 mL, Route: PO, Drug Form: SOLN, 12/04/2012 12/04/2012 Discontinued odone 300 mg-10 Dosing Weight 79.545, kg, Q4H, PRN mg/15 mL oral liquid Pain Score 4-6, Start date: 12/04/12 15:12:00, Duration: 30 day, Stop date: 01/03/13 15:11:00 hydromorphone 0.5 mg, Route: IVP, Q5Min, Dosing 12/04/2012 12/04/2012 Completed Weight 79.545, kg, PRN Pain Score 7-10, Start date: 12/04/12 15:12:00, Duration: 5 doses or times, Stop date: Limited # of times ketorolac 30 mg, Route: IVP, ONCE, Dosing 12/04/2012 12/04/2012 Completed Weight 79.545, kg, Start date: 12/04/12 15:12:00, Duration: 1 doses or times, Stop date: 12/04/12 15:12:00 acetaminophen-10 1,000 mg, Route: IV, Drug form: 12/04/2012 12/04/2012 Discontinued mg/mL INTRAVENOUS INJ, ONCE, Dosing Weight 79.545, solution kg, PRN Pain Score 4-6, Start date: 12/04/12 15:12:00, Duration: 1 doses or times, Stop date: Limited # of times, Infuse over 15 minutes (for patient weight 50 kg or greater) Infuse over 15 minutes (for patient weight 50 kg or greater) labetalol 5 mg, Route: IVP, Q5Min, Dosing 12/04/2012 12/04/2012 Discontinued Weight 79.545, kg, PRN Elevated BP, Start date: 12/04/12 15:12:00, Duration: 5 doses or times, Stop date: Limited # of times ondansetron 4 mg, Route: IVP, ONCE, Dosing 12/04/2012 12/04/2012 Discontinued Weight 79.545, kg, PRN Nausea & Vomiting, Start date: 12/04/12 15:12:00 naloxone 0.04 mg, Route: IVP, Q2MIN, Dosing 12/04/2012 12/04/2012 Discontinued Weight 79.545, kg, PRN Narcotic Reversal, Start date: 12/04/12 15:12:00, Duration: 8 doses or times, Stop date: Limited # of times flumazenil 0.2 mg, Route: IVP, PRN, Dosing 12/04/2012 12/04/2012 Discontinued Weight 79.545, kg, PRN Benzodiazepine Reversal, Initial dose, Start date: 12/04/12 15:12:00, Duration: 30 day, Stop date: 01/03/13 14:11:00 cefepime 1 gm, Route: IVPB, Drug form: INJ, 11/18/2012 11/28/2012 Discontinued ABXQ6H, Dosing Weight 79.545, kg, (CrCl >/=50 ml/min), Start date: 11/18/12 21:00:00, Stop date: 12/18/12 15:00:00(Same As: Maxipime) warfarin 5 mg, 1 tab, Route: PO, Drug form: 01/01/2013 01/01/2013 Completed TAB, Q5PM, Dosing Weight 79.545, kg, Start date: 01/01/13 17:00:00, Duration: 1 doses or times, Stop date: 01/01/13 17:00:00Nurse to ensure documentation of patient education per anticoagulation policy.Avoid large intake of vitamin-K containing foods diet.(Same As: Coumadin) warfarin 2.5 mg, 1 tab, Route: PO, Drug 01/04/2013 01/04/2013 Completed form: TAB, Q5PM, Dosing Weight 79.545, kg, Start date: 01/04/13 17:00:00, Duration: 1 doses or times, Stop date: 01/04/13 17:00:00Nurse to ensure documentation of patient education per anticoagulation policy.Avoid large intake of vitamin-K containing foods diet.(Same As: Coumadin) Lantus 5 unit, 0.05 mL, Route: SUB-Q, Drug 11/29/2012 11/29/2012 Completed form: INJ, ONCE, Dosing Weight 79.545, kg, Start date: 11/29/12 10:28:00, Stop date: 11/29/12 10:28:00Same as Lantus Solostar PEN"single patient use only" Stable for 28 days at room temperature.Expires in days from Date parenteral nutrition 1,200 mL, Rate: DIRECTED, Route: 11/21/2012 11/22/2012 Completed solution IV, Dosing Weight 79.545 kg, Total w/electrolytes 1,200 Volume: 1,200, Start date: 11/21/12 mL 18:00:00, Duration: 30 hr, Stop date: 11/22/12 23:59:00Per hospital policy, bag must be changed every 24hr. tramadol 50 mg oral 100 mg, 2 tab, Route: PO, Drug 12/11/2012 01/11/2013 Discontinued tablet form: TAB, Q6H, Dosing Weight 79.545, kg, Start date: 12/11/12 12:00:00, Duration: 30 day, Stop date: 02/09/13 6:00:00Not to exceed 400mg/day. (Same As: Ultram) Diflucan 800 mg, 4 tab, Route: NG, Drug 11/28/2012 11/28/2012 Completed form: TAB, ONCE, Dosing Weight 79.545, kg, Priority: NOW, Start date: 11/28/12 11:44:00, Stop date: 11/28/12 11:44:00(Same as: Diflucan) D5W 1/2NS 1,000 mL 1,000 mL, Rate: 40 ml/hr, Infuse 12/11/2012 12/11/2012 Discontinued over: 25 hr, Route: IV, Dosing Weight 79.545 kg, Total Volume: 1,000, Start date: 12/11/12 0:01:00, Duration: 30 day, Stop date: 01/10/13 0:00:00 Lovenox 80 mg, 0.8 mL, Route: SUB-Q, Drug 11/25/2012 11/25/2012 Canceled form: INJ, Q12H, Dosing Weight 79.545, kg, Start date: 11/25/12 16:00:00, Duration: 30 day, Stop date: 12/25/12 4:00:00Nurse to ensure documentation of patient education per anticoagulation policy. (Same as: Lovenox) vancomycin + Sodium 1.25 gm, Route: IVPB, ABXQ8H, 12/22/2012 12/23/2012 Discontinued Chloride 0.9% IV 250 Dosing Weight 79.545, kg, Start mL date: 12/22/12 23:00:00, Duration: 30 day, Stop date: 01/21/13 15:00:00(Same As: Vancocin) Vancomycin FOR IV SET ONLY magnesium sulfate 2 gm, 50 mL, Route: IVPB, Drug 01/08/2013 01/08/2013 Completed form: INJ, Q2H, Dosing Weight 79.545, kg, Total dose=4 gm, Start date: 01/08/13 14:00:00, Duration: 2 doses or times, Stop date: 01/08/13 16:00:00 Sodium Chloride 0.9% 250 mL, Rate: weight caller for use with 11/17/2012 11/19/2012 Discontinued (titrate) 250 mL blood product administration, Dosing Weight 79.545, kg, Route: IV, Total Volume: 250, Duration: 30 day, Stop date: 12/17/12 8:43:00, Replace Every: 24 hr Dilaudid 1 mg, 0.5 mL, Route: IVP, Drug 11/28/2012 11/28/2012 Completed form: INJ, ONCE, Dosing Weight 79.545, kg, Priority: STAT, Start date: 11/28/12 6:31:00, Stop date: 11/28/12 6:31:00(Same as: Dilaudid) LR IV 500 mL 500 mL, Rate: 500 ml/hr, Infuse 11/15/2012 11/15/2012 Completed over: 1 hr, Route: IV, Dosing Weight 79.545 kg, Total Volume: 500, Start date: 11/15/12 22:07:00, Duration: 1 doses or times, Stop date: 11/15/12 23:06:00 Visipaque 320mg/ml 115 mL, Route: IVP, Drug Form: 11/15/2012 11/15/2012 Completed SOLN, Dosing Weight 79.545, kg, ONCALL, STAT, Start date: 11/15/12 7:28:00, Duration: 1 doses or times, Dose=2.2ml/kg, Max [id number] -- "To be infused by Radiology Staff ONLY" Dose=2.2ml/kg, Max odal=639ad -- "To be infused by Radiology Staff ONLY" Lantus 20 unit, 0.2 mL, Route: SUB-Q, Drug 11/29/2012 01/08/2013 Discontinued form: INJ, BID, Dosing Weight 79.545, kg, Start date: 11/29/12 17:00:00, Duration: 30 day, Stop date: 01/28/13 9:00:00Same as Lantus Solostar PEN"single patient use only" Stable for 28 days at room temperature.Expires in days from Date normal saline 0.9% 1,000 mL, Rate: 100 ml/hr, Infuse 11/28/2012 12/06/2012 Discontinued IV 1,000 mL over: 10 hr, Route: IV, Dosing Weight 79.545 kg, Total Volume: 1,000, Start date: 11/28/12 6:05:00, Duration: 30 day, Stop date: 12/28/12 6:04:00 insulin regular 100 Route: SUB-Q, Drug form: SOLN, 12/07/2012 12/10/2012 Completed units/mL human ONCE, Dosing Weight 79.545, kg, recombinant Start date: 12/07/12 4:39:00, Stop date: 12/07/12 4:39:00(Same as: Humulin R) Roll in palms of hands gently; Do not shake vigorously. "single patient use only"(Restricted to patients requiring a dose > 60 units) Stable for 28 days at room temperatureExpires in days from Date albuterol-ipratropiu 3 ml, Route: NEB, Drug Form: SOLN, 11/27/2012 11/27/2012 Discontinued m Dosing Weight 79.545, kg, PRN, PRN Respiratory Protocol, Start date: 11/27/12 11:48:00, Duration: 30 day, Stop date: 12/27/12 11:47:00(Same as: Duoneb) Dakins Half Strength 1 appl, Route: TOP, Drug Form: 12/04/2012 12/07/2012 Discontinued Solution 0.25% SOLN, Dosing Weight 79.545, kg, topical Q8H, Start date: 12/04/12 16:00:00, Duration: 30 day, Stop date: 01/03/13 8:00:00Note: half-strength=0.25% sodium hypochlorite. Lovenox 80 mg, Route: SUB-Q, ONCE, Dosing 11/25/2012 11/25/2012 Discontinued Weight 79.545, kg, Priority: NOW, Start date: 11/25/12 13:44:00, Stop date: 11/25/12 13:44:00 Lactated Ringers 500 mL, Rate: 500 ml/hr, Infuse 11/18/2012 11/18/2012 Completed (Bolus) IV 500 mL over: 1 hr, Route: IV, Dosing Weight 79.545 kg, Total Volume: 500, Start date: 11/18/12 7:45:00, Duration: 1 doses or times, Stop date: 11/18/12 8:44:00 enoxaparin 70 mg, 0.7 mL, Route: SUB-Q, Drug 11/30/2012 01/03/2013 Discontinued form: INJ, Q12H, Dosing Weight 79.545, kg, Start date: 11/30/12 16:00:00, Duration: 30 day, Stop date: 01/29/13 4:00:00Nurse to ensure documentation of patient education per anticoagulation policy. (Same as: Lovenox) NS (Bolus) IV 500 mL 500 mL, Rate: 500 ml/hr, Infuse 12/07/2012 12/07/2012 Completed over: 1 hr, Route: IV, Dosing Weight 79.545 kg, Total Volume: 500, Priority: STAT, Start date: 12/07/12 5:33:00, Duration: 1 doses or times, Stop date: 12/07/12 6:32:00, Bolus Dose Bolus Dose D5W 1/2NS + KCL 1,000 mL, Rate: 100 ml/hr, Infuse 12/23/2012 12/23/2012 Canceled 20mEq/L 1000ml over: 10 hr, Route: IV, Dosing (Premix) 1000 mL Weight 79.545 kg, Total Volume: 1,000, Start date: 12/23/12 23:00:00, Duration: 30 day, Stop date: 01/22/13 22:59:00 Imodium A-D 1 mg, 5 mL, Route: PO, Drug form: 12/17/2012 12/26/2012 Discontinued LIQ, Q4H, Dosing Weight 79.545, kg, Start date: 12/17/12 12:00:00, Stop date: 01/16/13 8:00:00Same as Imodium D5W 1/2NS + KCL 1,000 mL, Rate: 100 ml/hr, Infuse 11/18/2012 11/20/2012 Discontinued 20mEq/L 1000ml over: 10 hr, Route: IV, Dosing (Premix) 1,000 mL Weight 79.545 kg, Total Volume: 1,000, Start date: 11/18/12 7:54:00, Duration: 30 day, Stop date: 12/18/12 7:53:00PREMIX IV - Do Not Alter magnesium sulfate 2 gm, 50 mL, Route: IVPB, Drug 12/21/2012 12/21/2012 Deleted 2gm / NS 50ml form: INJ, ONCE, Dosing Weight (premixed) 79.545, kg, Start date: 12/21/12 9:43:00, Duration: 2 hr, Stop date: 12/21/12 9:43:00 vancomycin 2 gm, 500 mL, Route: IVPB, Drug 11/19/2012 11/19/2012 Completed form: SOLN, ONCE, Start date: 11/19/12 14:00:00, Stop date: 11/19/12 14:00:00Same as: Vancocin magnesium sulfate 2 gm, 50 mL, Route: IVPB, Drug 12/09/2012 12/09/2012 Completed form: INJ, Q2H, Dosing Weight 79.545, kg, Total Dose=4 gm, Start date: 12/09/12 12:00:00, Duration: 2 doses or times, Stop date: 12/09/12 15:59:00, For Mg=1.5 - 1.7 mg/dL For Mg=1.5 - 1.7 mg/dL ampicillin 1 gm, Route: IVPB, Drug form: 12/18/2012 12/21/2012 Discontinued PDR/INJ, ABXQ6H, Dosing Weight 79.545, kg, Start date: 12/18/12 14:00:00, Stop date: 01/17/13 12:00:00(Same as: [place]) Coumadin 5 mg, Route: PO, Drug form: TAB, 12/30/2012 12/30/2012 Deleted Daily, Dosing Weight 79.545, kg, Priority: NOW, Start date: 12/30/12 16:58:00, Duration: 1 doses or times, Stop date: 12/30/12 16:58:00 vancomycin + Sodium 1.5 gm, Route: IVPB, ABXQ8H, Dosing 12/17/2012 12/18/2012 Discontinued Chloride 0.9% IV 250 Weight 79.545, kg, Start date: mL 12/17/12 12:00:00, Duration: 30 day, Stop date: 01/16/13 10:00:00(Same As: Vancocin) Vancomycin FOR IV SET ONLY LR IV 1000 mL 1,000 mL, Rate: titrate - see 11/20/2012 12/06/2012 Discontinued comment., Route: IV, Dosing Weight 79.545 kg, Total Volume: 1,000, Start date: 11/20/12 13:23:00, Duration: 30 day, Stop date: 12/20/12 13:22:00 warfarin 3 mg, 3 tab, Route: PO, Drug form: 01/02/2013 01/02/2013 Completed TAB, Q5PM, Dosing Weight 79.545, kg, Start date: 01/02/13 17:00:00, Duration: 1 doses or times, Stop date: 01/02/13 17:00:00Nurse to ensure documentation of patient education per anticoagulation policy.Avoid large intake of vitamin-K containing foods diet.(Same As: Coumadin) [place] 10/325 oral 1 tab, Route: PO, Drug Form: TAB, 12/23/2012 01/11/2013 Discontinued tablet Dosing Weight 79.545, kg, Q4H, PRN Pain, Start date: 12/23/12 9:42:00, Duration: 30 day, Stop date: 01/22/13 9:41:00Do not exceed 4gm/day of acetaminophen. (Same as: [place] 325/10) D5W 1/2NS 1,000 mL 1,000 mL, Rate: 100 ml/hr, Infuse 12/30/2012 12/31/2012 Discontinued over: 10 hr, Route: IV, Dosing Weight 79.545 kg, Total Volume: 1,000, Start date: 12/30/12 17:09:00, Duration: 30 day, Stop date: 01/29/13 17:08:00 Vicoprofen 7.5 2 tab, Route: PO, Drug Form: TAB, 12/15/2012 12/19/2012 Discontinued mg-200 mg oral Dosing Weight 79.545, kg, Q4H, PRN tablet Pain Score 7-10, Start date: 12/15/12 8:39:00, Duration: 30 day, Stop date: 01/14/13 8:38:00(Same as: Vicoprofen) Vicoprofen 7.5 1 tab, Route: PO, Drug Form: TAB, 12/15/2012 12/20/2012 Discontinued mg-200 mg oral Dosing Weight 79.545, kg, Q4H, PRN tablet Pain Score 4-6, Start date: 12/15/12 8:39:00, Duration: 30 day, Stop date: 01/14/13 8:38:00(Same as: Vicoprofen) [place] 10/325 oral 2 tab, Route: PO, Drug Form: TAB, 12/15/2012 12/19/2012 Discontinued tablet Dosing Weight 79.545, kg, Q4H, Start date: 12/15/12 12:00:00, Stop date: 01/14/13 10:00:00Do not exceed 4gm/day of acetaminophen. (Same as: [place] 325/10) morphine Sulfate 2 mg, 0.5 mL, Route: IVP, Drug 11/20/2012 11/23/2012 Discontinued form: INJ, Q2H, Dosing Weight 79.545, kg, PRN Pain, Start date: 11/20/12 9:31:00, Duration: 30 day, Stop date: 12/20/12 9:30:00(Same as:MORPhine Sulfate) Lactated Ringers 1,000 mL, Rate: 100 ml/hr, Infuse 11/20/2012 11/20/2012 Discontinued (Bolus) IV 1,000 mL over: 10 hr, Route: IV, Dosing Weight 79.545 kg, Total Volume: 1,000, Start date: 11/20/12 9:30:00, Duration: 30 day, Stop date: 12/20/12 9:29:00 Omnipaque 350mg/ml 90 mL, Route: IVP, Drug Form: SOLN, 11/17/2012 11/17/2012 Completed Dosing Weight 79.545, kg, ONCALL, STAT, Start date: 11/17/12 9:16:00, Duration: 1 doses or times, Stop date: 11/18/12 0:00:00, Dose=2.2ml/kg, Max [id number] -- "To be infused by Radiology Staff ONLY" Dose=2.2ml/kg, Max omvv=[id number] -- "To be infused by Radiology Staff ONLY"(Same as:Omnipaque 350). Sodium Chloride 0.9% 250 mL, Rate: weight caller for use with 11/16/2012 11/16/2012 Discontinued (titrate) 250 mL blood product administration, Dosing Weight 79.545, kg, Route: IV, Total Volume: 250, Duration: 30 day, Stop date: 12/16/12 0:08:00, Replace Every: 24 hr warfarin 3 mg, 3 tab, Route: PO, Drug form: 01/07/2013 01/07/2013 Completed TAB, Q5PM, Dosing Weight 79.545, kg, Start date: 01/07/13 17:00:00, Duration: 1 doses or times, Stop date: 01/07/13 17:00:00Nurse to ensure documentation of patient education per anticoagulation policy.Avoid large intake of vitamin-K containing foods diet.(Same As: Coumadin) Mag-Ox 400 400 mg, 1 tab, Route: PO, Drug 01/09/2013 01/09/2013 Discontinued form: TAB, Daily, Dosing Weight 79.545, kg, Start date: 01/09/13 9:00:00, Duration: 30 day, Stop date: 02/07/13 9:00:00(Same as: Mag-Ox 400)Magnesium oxide [id number] elemental magnesiumDose=____mg magnesium oxide (___mg elemental magnesium) Metamucil 3.4 gm, 1 pkt, Route: PO, Drug 11/29/2012 12/24/2012 Discontinued Form: PDR/REC, Dosing Weight 79.545, kg, BID, Start date: 11/29/12 17:00:00, Duration: 30 day, Stop date: 01/28/13 9:00:00(Same as: Metamucil) Mix in 8 oz liquid with meal. warfarin 5 mg, 1 tab, Route: PO, Drug form: 12/31/2012 12/31/2012 Completed TAB, Q5PM, Dosing Weight 79.545, kg, Start date: 12/31/12 17:00:00, Duration: 1 doses or times, Stop date: 12/31/12 17:00:00Nurse to ensure documentation of patient education per anticoagulation policy.Avoid large intake of vitamin-K containing foods diet.(Same As: Coumadin) FENTanyl - one time 50 microgram, 1 mL, Route: IVP, 12/01/2012 12/01/2012 Completed ICU bolus dose Drug form: INJ, ONCE, Dosing Weight 79.545, kg, Start date: 12/01/12 11:53:00, Stop date: 12/01/12 11:53:00(Same as: Sublimaze) Preservative free. Celebrex 200 mg, 2 cap, Route: PO, Drug 12/22/2012 01/11/2013 Discontinued form: CAP, Q12H, Dosing Weight 79.545, kg, Start date: 12/22/12 21:00:00, Duration: 30 day, Stop date: 01/21/13 9:00:00NSAID. Please check indication. Not for seizure. (Same As: Celebrex) Ancef 1 gm, Route: IVPB, [id number], Dosing 11/28/2012 11/29/2012 Discontinued Weight 79.545, kg, Start date: 11/28/12 19:00:00, Duration: 1 day, Stop date: 11/29/12 11:00:00 lidocaine 2% 20 mg, Route: ENDOTRACHEAL, Drug 11/18/2012 11/18/2012 Completed Form: INJ, Dosing Weight 79.545, kg, ONCE, Start date: 11/18/12 16:05:00, Stop date: 11/18/12 16:05:00(Same as: Xylocaine) OXYcodone 5 mg 10 mg, 2 tab, Route: PO, Drug form: 12/10/2012 12/15/2012 Discontinued immediate release TAB, Q4H, Dosing Weight 79.545, kg, Start date: 12/10/12 12:00:00, Stop date: 01/09/13 8:00:00(Same as: Roxicodone) Lactated Ringers 500 mL, Rate: 500 ml/hr, Infuse 12/08/2012 12/11/2012 Discontinued (Bolus) IV 500 mL over: 1 hr, Route: IV, Dosing Weight 79.545 kg, Total Volume: 500, Start date: 12/08/12 8:24:00, Duration: 30 day, Stop date: 01/07/13 7:23:00 OXYcodone 5 mg 5 mg, 1 tab, Route: PO, Drug form: 12/10/2012 12/15/2012 Discontinued immediate release TAB, Q4H, Dosing Weight 79.545, kg, PRN Pain, Start date: 12/10/12 11:08:00, Duration: 30 day, Stop date: 01/09/13 11:07:00(Same as: Roxicodone) LR IV 1,000 mL 1,000 mL, Rate: 125 ml/hr, Infuse 11/18/2012 12/06/2012 Discontinued over: 8 hr, Route: IV, Dosing Weight 79.545 kg, Total Volume: 1,000, Start date: 11/18/12 7:44:00, Duration: 30 day, Stop date: 12/18/12 7:43:00 sodium 15 mmol, 15 mL, Route: IV, Drug 11/17/2012 11/17/2012 Completed glycerophosphate + form: INJ, ONCE, Start date: Sodium Chloride 0.9% 11/17/12 9:08:00, Stop date: IV 250 mL 11/17/12 9:08:00Same as: Glycophos Non-Formulary Insulin regular 100 99 mL, Rate: TITRATE, Route: IV, 11/15/2012 11/17/2012 Discontinued unit + Sodium Dosing Weight 79.545 kg, Total Chloride 0.9% IV 99 Volume: 100, Start date: 11/15/12 mL 11:59:00, Duration: 30 day, Stop date: 12/15/12 11:58:00Please send a MedRequest before next dose needed.; Conc.=1 unit/ml. Total zwozmv=284 ml. acetaminophen 650 mg, 2 tab, Route: PO, Drug 12/10/2012 12/15/2012 Discontinued form: TAB, Q6H, Dosing Weight 79.545, kg, Start date: 12/10/12 12:00:00, Duration: 30 day, Stop date: 01/09/13 6:00:00Do not exceed 4 gm/day. (Same as: Tylenol) pneumococcal 0.5 ml, Route: IM, Drug Form: INJ, 11/16/2012 11/16/2012 Completed 23-valent vaccine Daily, Start date: 11/16/12 9:00:00, Duration: 1 doses or times, Stop date: 11/16/12 9:00:00(Same as: Pneumovax 23) Refrigerate influenza virus 0.5 mL, Route: IM, Drug Form: SUSP, 11/16/2012 11/16/2012 Completed vaccine, inactivated Daily, Start date: 11/16/12 9:00:00, Duration: 1 doses or times, Stop date: 11/16/12 9:00:00(Same as: Fluzone) Ancef 2 gm, 50 mL, Route: IVPB, Drug 11/18/2012 11/19/2012 Completed form: INJ, ABXQ8H, Dosing Weight 79.545, kg, Start date: 11/18/12 8:00:00, Stop date: 11/19/12 0:00:00 Protonix 40 mg, 1 tab, Route: PO, Drug form: 12/12/2012 12/12/2012 Discontinued ECTAB, Before Breakfast, Dosing Weight 79.545, kg, Start date: 12/12/12 13:00:00, Duration: 30 day, Stop date: 01/11/13 7:30:00Tablet should not be chewed or crushed.(Same as: Protonix) Lovenox 80 mg, Route: SUB-Q, ONCE, Dosing 11/25/2012 11/25/2012 Discontinued Weight 79.545, kg, Priority: NOW, Start date: 11/25/12 13:43:00, Stop date: 11/25/12 13:43:00 [place] 10/325 oral 1 tab, Route: PO, Drug Form: TAB, 12/08/2012 12/10/2012 Discontinued tablet Dosing Weight 79.545, kg, Q4H, Start date: 12/08/12 20:00:00, Duration: 30 day, Stop date: 01/07/13 19:59:00Do not exceed 4gm/day of acetaminophen. (Same as: [place] 325/10) [place] 10/325 oral 1 tab, Route: PO, Drug Form: TAB, 12/08/2012 12/10/2012 Discontinued tablet Dosing Weight 79.545, kg, Q4H, PRN Pain, Start date: 12/08/12 16:27:00, Duration: 30 day, Stop date: 01/07/13 16:26:00Do not exceed 4gm/day of acetaminophen. (Same as: [place] 325/10) Lantus 15 unit, 0.15 mL, Route: SUB-Q, 01/08/2013 01/11/2013 Discontinued Drug form: INJ, Bedtime, Dosing Weight 79.545, kg, Start date: 01/08/13 21:00:00, Duration: 30 day, Stop date: 02/06/13 21:00:00Same as Lantus Solostar PEN"single patient use only" Stable for 28 days at room temperature.Expires in days from Date [place] 1 appl, Route: TOP, Drug Form: 12/21/2012 12/21/2012 Deleted Strength Solution SOLN, Dosing Weight 79.545, kg, Daily, Start date: 12/21/12 9:00:00, Duration: 30 day, Stop date: 01/19/13 9:00:00 parenteral nutrition 1,000 mL, Rate: DIRECTED, Route: 11/20/2012 11/21/2012 Completed solution IV, Dosing Weight 79.545 kg, Total w/electrolytes 1,000 Volume: 1,000, Start date: 11/20/12 mL 18:00:00, Duration: 30 hr, Stop date: 11/21/12 23:59:00Per hospital policy, bag must be changed every 24hr. Dextrose 50% Syringe 25 gm, 50 mL, Route: IVP, Drug 12/06/2012 12/06/2012 Completed Form: INJ, Dosing Weight 79.545, kg, ONCE, Start date: 12/06/12 6:17:00, Stop date: 12/06/12 6:17:00 Dextrose 50% Syringe 25 gm, 50 mL, Route: IVP, Drug 11/20/2012 11/24/2012 Discontinued Form: INJ, Dosing Weight 79.545, kg, PRN, PRN Abnormal Lab Result, Start date: 11/20/12 11:35:00, Duration: 30 day, Stop date: 12/20/12 11:34:00, For FSBG < 40mg/dL For FSBG < 40mg/dL Insulin regular 4 unit, 0.04 mL, Route: SUB-Q, Drug 11/20/2012 11/24/2012 Discontinued form: SOLN, PRN, Dosing Weight 79.545, kg, PRN Abnormal Lab Result, Start date: 11/20/12 11:35:00, Duration: 30 day, Stop date: 12/20/12 11:34:00, For FSBG 126mg/dL - 140mg/dL For FSBG 126mg/dL - 140mg/dL(Same as: Humulin R) Roll in palms of hands gently; Do not shake vigorously. "single patient use only"(Restricted to patients requiring a dose > 60 units) Stable for 28 days at room temperatureExpires in days from Date Dextrose 50% Syringe 12.5 gm, 25 mL, Route: IVP, Drug 11/20/2012 11/24/2012 Discontinued Form: INJ, Dosing Weight 79.545, kg, PRN, PRN Abnormal Lab Result, Start date: 11/20/12 11:35:00, Duration: 30 day, Stop date: 12/20/12 11:34:00, For FSBG 40mg/dL - 60mg/dL For FSBG 40mg/dL - 60mg/dL Insulin regular 8 unit, 0.08 mL, Route: SUB-Q, Drug 11/20/2012 11/24/2012 Discontinued form: SOLN, PRN, Dosing Weight 79.545, kg, PRN Abnormal Lab Result, Start date: 11/20/12 11:35:00, Duration: 30 day, Stop date: 12/20/12 11:34:00, For FSBG > 161mg/dL For FSBG > 161mg/dL(Same as: Humulin R) Roll in palms of hands gently; Do not shake vigorously. "single patient use only"(Restricted to patients requiring a dose > 60 units) Stable for 28 days at room temperatureExpires in days from Date Insulin regular 6 unit, 0.06 mL, Route: SUB-Q, Drug 11/20/2012 11/24/2012 Discontinued form: RYLEE CHAPPELL, Dosing Weight 79.545, kg, PRN Abnormal Lab Result, Start date: 11/20/12 11:35:00, Duration: 30 day, Stop date: 12/20/12 11:34:00, For FSBG 141mg/dL - 160mg/dL For FSBG 141mg/dL - 160mg/dL(Same as: Humulin R) Roll in palms of hands gently; Do not shake vigorously. "single patient use only"(Restricted to patients requiring a dose > 60 units) Stable for 28 days at room temperatureExpires in days from Date Insulin regular 15 unit, 0.15 mL, Route: SUB-Q, 12/06/2012 12/06/2012 Completed Drug form: KAREEN CHAPPELL, Dosing Weight 79.545, kg, Start date: 12/06/12 23:24:00, Stop date: 12/06/12 23:24:00(Same as: Humulin R) Roll in palms of hands gently; Do not shake vigorously. "single patient use only"(Restricted to patients requiring a dose > 60 units) Stable for 28 days at room temperatureExpires in days from Date Lidoderm 5% topical 1 patch, Route: TOP, Daily, Drug 12/15/2012 12/24/2012 Discontinued film (patch) form: FILM, Priority: Now, Start date: 12/15/12 9:00:00, Stop date: 01/12/13 21:00:00, Remove after 12 hours Remove after 12 hoursApply only once for up to 12 hours in [id number] period (12 hours on and 12 hours off).(Same as: Lidoderm)"Remove old patch before application of new patch" Sodium Chloride 3% 500 mL, Rate: 30 ml/hr, Infuse 11/15/2012 11/17/2012 Discontinued (Hypertonic) IV 500 over: 16.7 hr, Route: IV, Dosing mL Weight 79.545 kg, Total Volume: 500, Start date: 11/15/12 7:41:00, Duration: 30 day, Stop date: 12/15/12 7:40:00"Administer by central venous catheter or a peripherally inserted central catheter (PICC) line.3% Sodium Chloride may be infused via peripheral administration into large vein (antecubital) only in the case of emergency for short term use until a central line can be inserted" (Same as: Hypertonic Saline 3%) Robaxin 500 mg, Route: PO, Drug form: TAB, 12/15/2012 12/15/2012 Discontinued TID, Dosing Weight 79.545, kg, Priority: NOW, Start date: 12/15/12 8:37:00, Duration: 30 day, Stop date: 01/13/13 17:00:00 codeine sulfate 30 30 mg, 1 tab, PO, TID, 1 tab, 01/10/2013 Ordered mg oral tablet Substitution Allowed, TAB FENTanyl 1000 mcg in 1,000 microgram, 20 mL, Rate: 11/17/2012 11/25/2012 Discontinued 20 mL (titrate) IV Titrate as directed, Dosing Weight 1,000 microgram 79.545, kg, Route: IV, Total Volume: 20 ml, Duration: 30 day, Stop date: 12/17/12 20:06:00, Replace Every: 24 hr Versed 50 mg in NS 50 mg, 50 mL, Rate: Titrate as 11/15/2012 11/16/2012 Discontinued 50 ml (titrate) IV directed, Dosing Weight 79.545, kg, 50 mg Route: IV, Total Volume: 50 ml, Duration: 30 day, Stop date: 12/15/12 22:15:00, Replace Every: 24 hr(Same as: Versed) parenteral nutrition 800 mL, Rate: as directed, Route: 11/22/2012 11/23/2012 Completed solution IV, Dosing Weight 79.545 kg, Total w/electrolytes 800 Volume: 800, Start date: 11/22/12 mL 18:00:00, Duration: 30 hr, Stop date: 11/23/12 23:59:00Per hospital policy, bag must be changed every 24hr. Lomotil oral tablet 1 tab, Route: PO, Drug Form: TAB, 12/13/2012 12/24/2012 Discontinued Dosing Weight 79.545, kg, Q4H, Start date: 12/13/12 20:00:00, Stop date: 01/12/13 18:00:00(Same As: Lomotil) MAX Adult dose=8 tabs/day Metamucil 3.4 gm, 1 pkt, Route: PO, Drug 12/24/2012 01/08/2013 Discontinued Form: PDR/REC, Dosing Weight 79.545, kg, TID, Start date: 12/24/12 20:00:00, Duration: 30 day, Stop date: 01/23/13 17:00:00(Same as: Metamucil) Mix in 8 oz liquid with meal. celecoxib 200 mg, 2 cap, Route: PO, Drug 12/01/2012 12/14/2012 Discontinued form: CAP, BID, Dosing Weight 79.545, kg, Start date: 12/01/12 17:00:00, Duration: 30 day, Stop date: 12/31/12 9:00:00NSAID. Please check indication. Not for seizure. (Same As: Celebrex) Bactrim DS 1 tab, Route: PO, Drug Form: TAB, 01/03/2013 01/03/2013 Discontinued Dosing Weight 79.545, kg, [id number], Start date: 01/03/13 13:00:00, Duration: 7 day, Stop date: 01/10/13 1:00:00One DS tablet=trimethoprim 160mg + sulfamethoxazole 800 mg On empty stomach with a glass of water. 1 hr before meals (Same As: Bactrim DS, Septra DS) Tylenol 1,000 mg, 2 tab, Route: PO, Drug 11/22/2012 12/08/2012 Discontinued form: TAB, Q6H, Dosing Weight 79.545, kg, Start date: 11/22/12 12:00:00, Duration: 30 day, Stop date: 12/22/12 6:00:00Max acetaminophen 4000 mg/day (4 gm/day). (Same as: Tylenol Extra Strength) bacitracin topical 1 appl, Route: TOP, QID, Drug form: 12/30/2012 01/11/2013 Discontinued OINT, Start date: 12/30/12 21:00:00, Duration: 30 day, Stop date: 01/29/13 17:00:00 magnesium sulfate 2 gm, 50 mL, Route: IVPB, Drug 11/15/2012 11/15/2012 Completed form: INJ, Q2H, Dosing Weight 79.545, kg, Total dose=4 gm, Priority: STAT, Start date: 11/15/12 21:50:00, Duration: 2 doses or times, Stop date: 11/15/12 22:00:00 Versed 5 mg, 5 mL, Route: IVP, Drug form: 11/22/2012 11/22/2012 Completed INJ, ONCALL, Dosing Weight 79.545, kg, Start date: 11/22/12 11:00:00, Duration: 30 day, Stop date: 12/22/12 10:59:00(Same as: Versed) potassium chloride 20 mEq, 100 mL, Route: IVPB, Drug 11/21/2012 11/21/2012 Discontinued form: INJ, Q1H, Dosing Weight 79.545, kg, Total gcka=192 mEq, Start date: 11/21/12 12:00:00, Duration: 5 doses or times, Stop date: 11/21/12 16:00:00(Same as: KCL) Infuse no faster than 10 mEq/hr if given peripherally. LR IV 1,000 mL 1,000 mL, Rate: 1,000 ml/hr, Infuse 11/16/2012 11/17/2012 Discontinued over: 1 hr, Route: IV, Dosing Weight 79.545 kg, Total Volume: 1,000, Start date: 11/16/12 2:57:00, Duration: 30 day, Stop date: 12/16/12 2:56:00 morphine Sulfate 4 mg, 1 mL, Route: IVP, Drug form: 11/27/2012 11/27/2012 Completed INJ, ONCE, Dosing Weight 79.545, kg, PRN Pain Score 7-10, Start date: 11/27/12 5:24:00, Stop date: 12/27/12 5:23:00(Same as:MORPhine Sulfate) tramadol 50 mg oral 100 mg, 2 tab, PO, Q6H, 1 tab, 01/10/2013 Ordered tablet Substitution Allowed, TAB tamsulosin 0.4 mg 0.4 mg, 1 cap, PO, After Dinner, 1 01/10/2013 Ordered oral capsule cap, Substitution Allowed, CAP codeine 30 mg, 1 tab, Route: PO, Drug form: 12/29/2012 01/11/2013 Discontinued TAB, TID, Dosing Weight 79.545, kg, Start date: 12/29/12 17:00:00, Duration: 30 day, Stop date: 01/28/13 13:00:00 Dextrose 50% Syringe 25 gm, 50 mL, Route: IVP, Drug 11/17/2012 11/20/2012 Discontinued Form: INJ, Dosing Weight 79.545, kg, PRN, PRN Abnormal Lab Result, Start date: 11/17/12 9:44:00, Duration: 30 day, Stop date: 12/17/12 9:43:00, For FSBG < 40mg/dL For FSBG < 40mg/dL Dextrose 50% Syringe 12.5 gm, 25 mL, Route: IVP, Drug 11/17/2012 11/20/2012 Discontinued Form: INJ, Dosing Weight 79.545, kg, PRN, PRN Abnormal Lab Result, Start date: 11/17/12 9:44:00, Duration: 30 day, Stop date: 12/17/12 9:43:00, For FSBG 40mg/dL - 60mg/dL For FSBG 40mg/dL - 60mg/dL Insulin regular 10 unit, 0.1 mL, Route: SUB-Q, Drug 11/17/2012 11/20/2012 Discontinued form: SOLN, PRN, Dosing Weight 79.545, kg, PRN Abnormal Lab Result, Start date: 11/17/12 9:44:00, Duration: 30 day, Stop date: 12/17/12 9:43:00, For FSBG 200mg/dL - 249mg/dL For FSBG 200mg/dL - 249mg/dL(Same as: Humulin R) Roll in palms of hands gently; Do not shake vigorously. "single patient use only"(Restricted to patients requiring a dose > 60 units) Stable for 28 days at room temperatureExpires in days from Date Insulin regular 15 unit, 0.15 mL, Route: SUB-Q, 11/17/2012 11/20/2012 Discontinued Drug form: SOLN, PRN, Dosing Weight 79.545, kg, PRN Abnormal Lab Result, Start date: 11/17/12 9:44:00, Duration: 30 day, Stop date: 12/17/12 9:43:00, for FSBG > 250mg/dL for FSBG > 250mg/dL(Same as: Humulin R) Roll in palms of hands gently; Do not shake vigorously. "single patient use only"(Restricted to patients requiring a dose > 60 units) Stable for 28 days at room temperatureExpires in days from Date Insulin regular 5 unit, 0.05 mL, Route: SUB-Q, Drug 11/17/2012 11/20/2012 Discontinued form: SOLN, PRN, Dosing Weight 79.545, kg, PRN Abnormal Lab Result, Start date: 11/17/12 9:44:00, Duration: 30 day, Stop date: 12/17/12 9:43:00, For FSBG 150mg/dL - 199 mg/dL For FSBG 150mg/dL - 199 mg/dL(Same as: Humulin R) Roll in palms of hands gently; Do not shake vigorously. "single patient use only"(Restricted to patients requiring a dose > 60 units) Stable for 28 days at room temperatureExpires in days from Date ondansetron 4 mg, 2 mL, Route: IVP, Drug form: 12/19/2012 01/11/2013 Discontinued INJ, ONCE, Dosing Weight 79.545, kg, PRN Nausea & Vomiting, Start date: 12/19/12 10:12:00(Same as: Zofran) labetalol 5 mg, 1 mL, Route: IVP, Drug form: 12/19/2012 12/20/2012 Completed INJ, Q5Min, Dosing Weight 79.545, kg, PRN Elevated BP, Start date: 12/19/12 10:12:00, Duration: 5 doses or times, Stop date: 12/20/12 0:00:00 hydromorphone 0.5 mg, 0.25 mL, Route: IVP, Drug 12/19/2012 12/19/2012 Discontinued form: INJ, Q5Min, Dosing Weight 79.545, kg, PRN Pain Score 4-6, Start date: 12/19/12 10:12:00, Duration: 5 doses or times, Stop date: 12/20/12 0:00:00(Same as: Dilaudid) flumazenil 0.2 mg, 2 mL, Route: IVP, Drug 12/19/2012 12/20/2012 Completed form: INJ, PRN, Dosing Weight 79.545, kg, PRN Other -See Comment, Initial dose, Start date: 12/19/12 10:12:00, Stop date: 12/20/12 0:00:00(Same as: Romazicon) naloxone 0.04 mg, 0.1 mL, Route: IVP, Drug 12/19/2012 12/20/2012 Completed form: INJ, Q2MIN, Dosing Weight 79.545, kg, PRN Narcotic Reversal, Start date: 12/19/12 10:12:00, Duration: 8 doses or times, Stop date: 12/20/12 0:00:00Same as Narcan meperidine 12.5 mg, 0.5 mL, Route: IVP, Drug 12/19/2012 12/20/2012 Completed form: INJ, Q30Min, Dosing Weight 79.545, kg, PRN Other -See Comment, For shivering, Start date: 12/19/12 10:12:00, Duration: 2 doses or times, Stop date: 12/20/12 0:00:00(Same as: Demerol) "Use Precaution in Elderly, Seizure disorders, and Renal impairment" vancomycin 1 gm, Route: IVPB, Drug form: INJ, 12/15/2012 12/17/2012 Discontinued [id number], Dosing Weight 79.545, kg, Start date: 12/15/12 11:00:00, Duration: 30 day, Stop date: 01/14/13 10:00:00(Same As: Vancocin) Lomotil oral tablet 2 tab, Route: PO, Drug Form: TAB, 12/24/2012 01/11/2013 Discontinued Dosing Weight 79.545, kg, Q6H, Start date: 12/24/12 18:00:00, Stop date: 01/23/13 18:00:00(Same As: Lomotil) MAX Adult dose=8 tabs/day cefepime 1 gm, Route: IVPB, Drug form: INJ, 12/15/2012 12/17/2012 Discontinued [id number], Dosing Weight 79.545, kg, (CrCl >/=50 ml/min), Start date: 12/15/12 11:00:00, Duration: 30 day, Stop date: 01/14/13 3:00:00(Same As: Maxipime) Dextrose 5% with 1,000 mL, Rate: 100 ml/hr, Infuse 11/18/2012 11/18/2012 Discontinued 0.45% NaCl IV 1000 over: 10 hr, Route: IV, Dosing mL Weight 79.545 kg, Total Volume: 1,000, Start date: 11/18/12 7:51:00, Duration: 30 day, Stop date: 12/18/12 7:50:00 Maxipime 1 gm, Route: IVPB, Drug form: INJ, 11/28/2012 12/05/2012 Discontinued [id number], Dosing Weight 79.545, kg, (CrCl >/=50 ml/min), Start date: 11/28/12 21:30:00, Duration: 30 day, Stop date: 12/28/12 15:30:00(Same As: Maxipime) Dilaudid 0.5 mg, 0.25 mL, Route: IV, Drug 12/06/2012 12/15/2012 Discontinued form: INJ, Q3H, Dosing Weight 79.545, kg, PRN Pain, Start date: 12/06/12 17:34:00, Duration: 30 day, Stop date: 01/05/13 17:33:00(Same as: Dilaudid) magnesium sulfate 2 gm, 50 mL, Route: IVPB, Drug 12/22/2012 12/22/2012 Completed 2gm / NS 50ml form: INJ, ONCE, Dosing Weight (premixed) 79.545, kg, Start date: 12/22/12 0:00:00, Duration: 2 hr, Stop date: 12/22/12 0:00:00 [place] 10/325 oral 1 tab, Route: PO, Drug Form: TAB, 12/19/2012 12/22/2012 Discontinued tablet Dosing Weight 79.545, kg, Q4H, PRN Pain, Start date: 12/19/12 12:22:00, Duration: 30 day, Stop date: 01/18/13 12:21:00Do not exceed 4gm/day of acetaminophen. (Same as: [place] 325/10) Dextrose 50% Syringe 12.5 gm, 25 mL, Route: IVP, Drug 12/17/2012 01/11/2013 Discontinued Form: INJ, Dosing Weight 79.545, kg, PRN, PRN Blood Glucose Results, Start date: 12/17/12 15:17:00, Duration: 30 day, Stop date: 01/16/13 14:16:00 Insulin regular 4 unit, 0.04 mL, Route: SUB-Q, Drug 12/17/2012 01/11/2013 Discontinued form: SOLN, TID-Before Meals, Dosing Weight 79.545, kg, PRN Blood Glucose Results, Start date: 12/17/12 15:17:00, Duration: 30 day, Stop date: 01/16/13 15:16:00(Same as: Humulin R) Roll in palms of hands gently; Do not shake vigorously. "single patient use only"(Restricted to patients requiring a dose > 60 units) Stable for 28 days at room temperatureExpires in days from Date Insulin regular 3 unit, 0.03 mL, Route: SUB-Q, Drug 12/17/2012 01/11/2013 Discontinued form: SOLN, TID-Before Meals, Dosing Weight 79.545, kg, PRN Blood Glucose Results, Start date: 12/17/12 15:17:00, Duration: 30 day, Stop date: 01/16/13 15:16:00(Same as: Humulin R) Roll in palms of hands gently; Do not shake vigorously. "single patient use only"(Restricted to patients requiring a dose > 60 units) Stable for 28 days at room temperatureExpires in days from Date Insulin regular 5 unit, 0.05 mL, Route: SUB-Q, Drug 12/17/2012 01/11/2013 Discontinued form: SOLN, TID-Before Meals, Dosing Weight 79.545, kg, PRN Blood Glucose Results, Start date: 12/17/12 15:17:00, Duration: 30 day, Stop date: 01/16/13 15:16:00(Same as: Humulin R) Roll in palms of hands gently; Do not shake vigorously. "single patient use only"(Restricted to patients requiring a dose > 60 units) Stable for 28 days at room temperatureExpires in days from Date Insulin regular 2 unit, 0.02 mL, Route: SUB-Q, Drug 12/17/2012 01/11/2013 Discontinued form: SOLN, TID-Before Meals, Dosing Weight 79.545, kg, PRN Blood Glucose Results, Start date: 12/17/12 15:17:00, Duration: 30 day, Stop date: 01/16/13 15:16:00(Same as: Humulin R) Roll in palms of hands gently; Do not shake vigorously. "single patient use only"(Restricted to patients requiring a dose > 60 units) Stable for 28 days at room temperatureExpires in days from Date glucagon 1 mg, Route: IM, Drug form: 12/17/2012 01/11/2013 Discontinued PDR/INJ, PRN, Dosing Weight 79.545, kg, PRN Blood Glucose Results, Start date: 12/17/12 15:17:00, Duration: 30 day, Stop date: 01/16/13 14:16:00 Insulin regular 4 unit, 0.04 mL, Route: SUB-Q, Drug 12/17/2012 01/11/2013 Discontinued form: SOLN, Bedtime, Dosing Weight 79.545, kg, PRN Blood Glucose Results, Start date: 12/17/12 15:17:00, Duration: 30 day, Stop date: 01/16/13 15:16:00(Same as: Humulin R) Roll in palms of hands gently; Do not shake vigorously. "single patient use only"(Restricted to patients requiring a dose > 60 units) Stable for 28 days at room temperatureExpires in days from Date Insulin regular 1 unit, 0.01 mL, Route: SUB-Q, Drug 12/17/2012 01/11/2013 Discontinued form: SOLN, Bedtime, Dosing Weight 79.545, kg, PRN Blood Glucose Results, Start date: 12/17/12 15:17:00, Duration: 30 day, Stop date: 01/16/13 15:16:00(Same as: Humulin R) Roll in palms of hands gently; Do not shake vigorously. "single patient use only"(Restricted to patients requiring a dose > 60 units) Stable for 28 days at room temperatureExpires in days from Date Insulin regular 1 unit, 0.01 mL, Route: SUB-Q, Drug 12/17/2012 01/11/2013 Discontinued form: SOLN, TID-Before Meals, Dosing Weight 79.545, kg, PRN Blood Glucose Results, Start date: 12/17/12 15:17:00, Duration: 30 day, Stop date: 01/16/13 15:16:00(Same as: Humulin R) Roll in palms of hands gently; Do not shake vigorously. "single patient use only"(Restricted to patients requiring a dose > 60 units) Stable for 28 days at room temperatureExpires in days from Date Insulin regular 2 unit, 0.02 mL, Route: SUB-Q, Drug 12/17/2012 01/11/2013 Discontinued form: SOLN, Bedtime, Dosing Weight 79.545, kg, PRN Blood Glucose Results, Start date: 12/17/12 15:17:00, Duration: 30 day, Stop date: 01/16/13 15:16:00(Same as: Humulin R) Roll in palms of hands gently; Do not shake vigorously. "single patient use only"(Restricted to patients requiring a dose > 60 units) Stable for 28 days at room temperatureExpires in days from Date Insulin regular 3 unit, 0.03 mL, Route: SUB-Q, Drug 12/17/2012 01/11/2013 Discontinued form: SOLN, Bedtime, Dosing Weight 79.545, kg, PRN Blood Glucose Results, Start date: 12/17/12 15:17:00, Duration: 30 day, Stop date: 01/16/13 15:16:00(Same as: Humulin R) Roll in palms of hands gently; Do not shake vigorously. "single patient use only"(Restricted to patients requiring a dose > 60 units) Stable for 28 days at room temperatureExpires in days from Date Dextrose 50% Syringe 25 gm, 50 mL, Route: IVP, Drug 12/17/2012 01/11/2013 Discontinued Form: INJ, Dosing Weight 79.545, kg, PRN, PRN Blood Glucose Results, Start date: 12/17/12 15:17:00, Duration: 30 day, Stop date: 01/16/13 14:16:00 Ofirmev 1,000 mg, 100 mL, Route: IV, Drug 11/20/2012 11/22/2012 Discontinued form: INJ, Q6H, Dosing Weight 79.545, kg, Start date: 11/20/12 12:00:00, Duration: 30 day, Stop date: 12/20/12 6:00:00Infuse over 15 minutes Do not exceed 4gm/day of acetaminophen Insulin regular 4 100 mL, Rate: Titrate, Dosing 11/15/2012 11/15/2012 Discontinued U/hr + Sodium Weight 79.545, kg, Route: IV, Total Chloride 0.9% Volume: 100, Duration: 30 day, Stop (titrate) 100 mL date: 12/15/12 11:45:00, Replace Every: 24 hr Dextrose 50% Syringe 12.5 gm, 25 mL, Route: IVP, Drug 11/15/2012 11/17/2012 Discontinued Form: INJ, Dosing Weight 79.545, kg, PRN, PRN Abnormal Lab Result, Start date: 11/15/12 11:45:00, Duration: 30 day, Stop date: 12/15/12 11:44:00, For FSBG 40mg/dL - 60mg/dL For FSBG 40mg/dL - 60mg/dL Dextrose 50% Syringe 25 gm, 50 mL, Route: IVP, Drug 11/15/2012 11/17/2012 Discontinued Form: INJ, Dosing Weight 79.545, kg, PRN, PRN Abnormal Lab Result, Start date: 11/15/12 11:45:00, Duration: 30 day, Stop date: 12/15/12 11:44:00, For [facility] < 40mg/dL For [facility] < 40mg/dL magnesium sulfate 2 gm, 50 mL, Route: IVPB, Drug 12/27/2012 12/27/2012 Completed form: INJ, ONCE, Dosing Weight 79.545, kg, Start date: 12/27/12 11:33:00, Duration: 2 hr, Stop date: 12/27/12 11:33:00 normal saline 0.9% 1,000 mL, Rate: 1,000 ml/hr, Infuse 12/15/2012 12/16/2012 Discontinued IV 1,000 mL over: 1 hr, Route: IV, Dosing Weight 79.545 kg, Total Volume: 1,000, Start date: 12/15/12 23:00:00, Duration: 30 day, Stop date: 01/14/13 21:59:00 erythromycin 250 mg, 1 tab, Route: PO, Drug 11/21/2012 11/25/2012 Discontinued form: TAB, [id number], Dosing Weight 79.545, kg, Start date: 11/21/12 12:00:00, Duration: 30 day, Stop date: 12/21/12 6:00:00(Same as: erythromycin base) Give With Food "Do Not Crush" OXYcodone 5 mg 5 mg, 1 tab, Route: PO, Drug form: 11/21/2012 12/06/2012 Discontinued immediate release TAB, Q6H, Dosing Weight 79.545, kg, PRN as needed for pain, Start date: 11/21/12 20:28:00, Duration: 30 day, Stop date: 12/21/12 20:27:00(Same as: Roxicodone) magnesium sulfate 2 gm, 50 mL, Route: IVPB, Drug 12/11/2012 12/11/2012 Completed 2gm / NS 50ml form: INJ, ONCE, Dosing Weight (premixed) 79.545, kg, Start date: 12/11/12 10:34:00, Duration: 2 hr, Stop date: 12/11/12 10:34:00 pantoprazole 40 mg 40 mg, 1 tab, PO, Before Dinner, 1 01/10/2013 Ordered oral enteric coated tab, Substitution Allowed, ECTAB tablet OXYcodone 5 mg 5 mg, 1 tab, Route: PO, Drug form: 11/22/2012 11/24/2012 Discontinued immediate release TAB, Q6H, Dosing Weight 79.545, kg, Start date: 11/22/12 0:00:00, Duration: 30 day, Stop date: 12/21/12 18:00:00(Same as: Roxicodone) methocarbamol 500 mg 1,000 mg, 2 tab, PO, Q8H, 1 tab, 01/10/2013 Ordered oral tablet Substitution Allowed, TAB fentanyl 200 microgram, 4 mL, Route: IV, 11/18/2012 11/18/2012 Completed Drug form: INJ, ONCE, Dosing Weight 79.545, kg, Priority: STAT, Start date: 11/18/12 16:00:00, Stop date: 11/18/12 16:00:00(Same as: Sublimaze) Preservative free. metFORmin 500 mg 500 mg, 1 tab, PO, BID, 1 tab, 01/10/2013 Ordered oral tablet Substitution Allowed, TAB Dextrose 50% Syringe 25 gm, 50 mL, Route: IVP, Drug 11/24/2012 12/07/2012 Discontinued Form: INJ, Dosing Weight 79.545, kg, PRN, PRN Abnormal Lab Result, Start date: 11/24/12 9:09:00, Duration: 30 day, Stop date: 12/24/12 9:08:00, For FSBG < 40mg/dL For FSBG < 40mg/dL Dextrose 50% Syringe 12.5 gm, 25 mL, Route: IVP, Drug 11/24/2012 12/07/2012 Discontinued Form: INJ, Dosing Weight 79.545, kg, PRN, PRN Abnormal Lab Result, Start date: 11/24/12 9:09:00, Duration: 30 day, Stop date: 12/24/12 9:08:00, For FSBG 40mg/dL - 60mg/dL For FSBG 40mg/dL - 60mg/dL magnesium gluconate 1,000 mg, 2 tab, PO, TID, 1 tab, 01/10/2013 Ordered 500 mg oral tablet Substitution Allowed, TAB Insulin regular 5 unit, 0.05 mL, Route: SUB-Q, Drug 11/24/2012 12/07/2012 Discontinued form: SOLN, PRN, Dosing Weight 79.545, kg, PRN Abnormal Lab Result, Start date: 11/24/12 9:09:00, Duration: 30 day, Stop date: 12/24/12 9:08:00, For FSBG 150mg/dL - 199 mg/dL For FSBG 150mg/dL - 199 mg/dL(Same as: Humulin R) Roll in palms of hands gently; Do not shake vigorously. "single patient use only"(Restricted to patients requiring a dose > 60 units) Stable for 28 days at room temperatureExpires in days from Date Insulin regular 15 unit, 0.15 mL, Route: SUB-Q, 11/24/2012 12/07/2012 Discontinued Drug form: SOLN, PRN, Dosing Weight 79.545, kg, PRN Abnormal Lab Result, Start date: 11/24/12 9:09:00, Duration: 30 day, Stop date: 12/24/12 9:08:00, for FSBG > 250mg/dL for FSBG > 250mg/dL(Same as: Humulin R) Roll in palms of hands gently; Do not shake vigorously. "single patient use only"(Restricted to patients requiring a dose > 60 units) Stable for 28 days at room temperatureExpires in days from Date Insulin regular 10 unit, 0.1 mL, Route: SUB-Q, Drug 11/24/2012 12/07/2012 Discontinued form: SOLN, PRN, Dosing Weight 79.545, kg, PRN Abnormal Lab Result, Start date: 11/24/12 9:09:00, Duration: 30 day, Stop date: 12/24/12 9:08:00, For FSBG 200mg/dL - 249mg/dL For FSBG 200mg/dL - 249mg/dL(Same as: Humulin R) Roll in palms of hands gently; Do not shake vigorously. "single patient use only"(Restricted to patients requiring a dose > 60 units) Stable for 28 days at room temperatureExpires in days from Date Dilaudid 1 mg, 0.5 mL, Route: IV, Drug form: 11/26/2012 11/26/2012 Completed INJ, ONCE, Dosing Weight 79.545, kg, Start date: 11/26/12 14:50:00, Stop date: 11/26/12 14:50:00(Same as: Dilaudid) loperamide 2 mg oral 2 mg, 1 cap, PO, Q4H, 1 cap, 01/10/2013 Ordered capsule Substitution Allowed, CAP Omnipaque 350mg/ml 98 mL, Route: IVP, Drug Form: SOLN, 12/15/2012 12/15/2012 Completed Dosing Weight 79.545, kg, ONCALL, STAT, Start date: 12/15/12 13:47:00, Duration: 1 doses or times, Weight=75 - 94kg -- "To be infused by Radiology Staff ONLY" Weight=75 - 94kg -- "To be infused by Radiology Staff ONLY" insulin glargine 100 20 unit, 0.2 mL, SUB-Q, Before 01/10/2013 Ordered units/mL Breakfast, 1 mL, Substitution subcutaneous Allowed, SOLN solution insulin glargine 100 15 unit, 0.15 mL, SUB-Q, Bedtime, 1 01/10/2013 Ordered units/mL mL, Substitution Allowed, SOLN subcutaneous solution glipiZIDE 5 mg oral 5 mg, 1 tab, PO, Daily, 1 tab, 01/10/2013 Ordered tablet Substitution Allowed, TAB Versed 5 mg, 5 mL, Route: IVP, Drug form: 11/18/2012 11/22/2012 Discontinued INJ, ONCALL, Dosing Weight 79.545, kg, Priority: STAT, Start date: 11/18/12 15:34:00, Duration: 30 day, Stop date: 12/18/12 15:33:00(Same as: Versed) glucagon 1 mg, Route: IM, Drug form: 12/07/2012 12/07/2012 Discontinued PDR/INJ, PRN, Dosing Weight 79.545, kg, PRN Blood Glucose Results, Start date: 12/07/12 14:31:00, Duration: 30 day, Stop date: 01/06/13 13:30:00 Dextrose 50% Syringe 12.5 gm, 25 mL, Route: IVP, Drug 12/07/2012 12/16/2012 Discontinued Form: INJ, Dosing Weight 79.545, kg, PRN, PRN Blood Glucose Results, Start date: 12/07/12 14:31:00, Duration: 30 day, Stop date: 01/06/13 13:30:00 Dextrose 50% Syringe 25 gm, 50 mL, Route: IVP, Drug 12/07/2012 12/16/2012 Discontinued Form: INJ, Dosing Weight 79.545, kg, PRN, PRN Blood Glucose Results, Start date: 12/07/12 14:31:00, Duration: 30 day, Stop date: 01/06/13 13:30:00 Insulin regular 10 unit, 0.1 mL, Route: SUB-Q, Drug 12/07/2012 12/16/2012 Discontinued form: SOLN, TID-Before Meals, Dosing Weight 79.545, kg, PRN Blood Glucose Results, Start date: 12/07/12 14:31:00, Duration: 30 day, Stop date: 01/06/13 14:30:00(Same as: Humulin R) Roll in palms of hands gently; Do not shake vigorously. "single patient use only"(Restricted to patients requiring a dose > 60 units) Stable for 28 days at room temperatureExpires in days from Date Insulin regular 8 unit, 0.08 mL, Route: SUB-Q, Drug 12/07/2012 12/16/2012 Discontinued form: SOLN, TID-Before Meals, Dosing Weight 79.545, kg, PRN Blood Glucose Results, Start date: 12/07/12 14:31:00, Duration: 30 day, Stop date: 01/06/13 14:30:00(Same as: Humulin R) Roll in palms of hands gently; Do not shake vigorously. "single patient use only"(Restricted to patients requiring a dose > 60 units) Stable for 28 days at room temperatureExpires in days from Date Insulin regular 6 unit, 0.06 mL, Route: SUB-Q, Drug 12/07/2012 12/16/2012 Discontinued form: SOLN, TID-Before Meals, Dosing Weight 79.545, kg, PRN Blood Glucose Results, Start date: 12/07/12 14:31:00, Duration: 30 day, Stop date: 01/06/13 14:30:00(Same as: Humulin R) Roll in palms of hands gently; Do not shake vigorously. "single patient use only"(Restricted to patients requiring a dose > 60 units) Stable for 28 days at room temperatureExpires in days from Date warfarin 3 mg, 3 tab, Route: PO, Drug form: 01/08/2013 01/08/2013 Completed TAB, Q5PM, Dosing Weight 79.545, kg, Start date: 01/08/13 17:00:00, Duration: 1 doses or times, Stop date: 01/08/13 17:00:00Nurse to ensure documentation of patient education per anticoagulation policy.Avoid large intake of vitamin-K containing foods diet.(Same As: Coumadin) Insulin regular 2 unit, 0.02 mL, Route: SUB-Q, Drug 12/07/2012 12/16/2012 Discontinued form: SOLN, TID-Before Meals, Dosing Weight 79.545, kg, PRN Blood Glucose Results, Start date: 12/07/12 14:31:00, Duration: 30 day, Stop date: 01/06/13 14:30:00(Same as: Humulin R) Roll in palms of hands gently; Do not shake vigorously. "single patient use only"(Restricted to patients requiring a dose > 60 units) Stable for 28 days at room temperatureExpires in days from Date Insulin regular 4 unit, 0.04 mL, Route: SUB-Q, Drug 12/07/2012 12/16/2012 Discontinued form: SOLN, TID-Before Meals, Dosing Weight 79.545, kg, PRN Blood Glucose Results, Start date: 12/07/12 14:31:00, Duration: 30 day, Stop date: 01/06/13 14:30:00(Same as: Humulin R) Roll in palms of hands gently; Do not shake vigorously. "single patient use only"(Restricted to patients requiring a dose > 60 units) Stable for 28 days at room temperatureExpires in days from Date vancomycin 1 gm, Route: IVPB, Drug form: INJ, 12/20/2012 12/20/2012 Deleted [id number], Dosing Weight 79.545, kg, Priority: STAT, Start date: 12/20/12 15:15:00, Duration: 30 day, Stop date: 01/19/13 7:15:00 FENTanyl - one time 100 microgram, 2 mL, Route: IVP, 11/18/2012 11/19/2012 Completed ICU bolus dose Drug form: INJ, ONCE, Dosing Weight 79.545, kg, Priority: STAT, Start date: 11/18/12 15:34:00, Stop date: 11/18/12 15:34:00(Same as: Sublimaze) Preservative free. vancomycin 1 gm, Route: IVPB, Drug form: INJ, 12/20/2012 12/22/2012 Discontinued [id number], Start date: 12/20/12 17:00:00, Stop date: 12/26/12 13:00:00(Same As: Vancocin) [place] oral 1 tab, Route: PO, Drug Form: TAB, 12/19/2012 12/22/2012 Discontinued tablet Dosing Weight 79.545, kg, Q4H, Start date: 12/19/12 14:00:00, Duration: 30 day, Stop date: 01/18/13 10:00:00Do not exceed 4gm/day of acetaminophen. (Same as: [place] 325/10) OXYcodone 5 mg 5 mg, 1 tab, Route: PO, Drug form: 12/06/2012 12/08/2012 Discontinued immediate release TAB, Q4H, Dosing Weight 79.545, kg, PRN as needed for pain, Start date: 12/06/12 17:33:00, Duration: 30 day, Stop date: 01/05/13 17:32:00(Same as: Roxicodone) Imodium A-D 2 mg, 10 mL, Route: PO, Drug form: 12/26/2012 12/29/2012 Discontinued SOLN, Q4H, Dosing Weight 79.545, kg, Start date: 12/26/12 16:00:00, Stop date: 01/25/13 12:00:00(Same as: Imodium) ondansetron 4 mg, Route: IVP, ONCE, Dosing 11/27/2012 11/27/2012 Discontinued Weight 79.545, kg, PRN Nausea & Vomiting, Start date: 11/27/12 14:26:00 flumazenil 0.2 mg, Route: IVP, PRN, Dosing 11/27/2012 11/27/2012 Discontinued Weight 79.545, kg, PRN Benzodiazepine Reversal, Initial dose, Start date: 11/27/12 14:26:00, Duration: 30 day, Stop date: 12/27/12 14:25:00 naloxone 0.04 mg, Route: IVP, Q2MIN, Dosing 11/27/2012 11/27/2012 Discontinued Weight 79.545, kg, PRN Narcotic Reversal, Start date: 11/27/12 14:26:00, Duration: 8 doses or times, Stop date: Limited # of times metoprolol 1 mg, Route: IVP, Q5Min, Dosing 11/27/2012 11/27/2012 Discontinued Weight 79.545, kg, PRN Elevated BP, Start date: 11/27/12 14:26:00, Duration: 5 doses or times, Stop date: Limited # of times hydrALAZINE 5 mg, Route: IVP, Q5Min, Dosing 11/27/2012 11/27/2012 Discontinued Weight 79.545, kg, PRN Elevated BP, Start date: 11/27/12 14:26:00, Duration: 4 doses or times, Stop date: Limited # of times acetaminophen-hydroc 2 tab, Route: PO, Dosing Weight 11/27/2012 11/27/2012 Discontinued odone 325 mg-5 mg 79.545, kg, Q4H, PRN Pain Score oral tablet 4-6, Start date: 11/27/12 14:26:00, Duration: 30 day, Stop date: 12/27/12 14:25:00 acetaminophen-hydroc 15 mL, Route: PO, Drug Form: SOLN, 11/27/2012 11/27/2012 Discontinued odone 300 mg-10 Dosing Weight 79.545, kg, Q4H, PRN mg/15 mL oral liquid Pain Score 4-6, Start date: 11/27/12 14:26:00, Duration: 30 day, Stop date: 12/27/12 14:25:00 hydromorphone 0.5 mg, Route: IVP, Q5Min, Dosing 11/27/2012 11/27/2012 Discontinued Weight 79.545, kg, PRN Pain Score 7-10, Start date: 11/27/12 14:26:00, Duration: 5 doses or times, Stop date: Limited # of times acetaminophen-hydroc 1 tab, Route: PO, Dosing Weight 11/27/2012 11/27/2012 Discontinued odone 325 mg-5 mg 79.545, kg, Q4H, PRN Pain Score oral tablet 1-3, Start date: 11/27/12 14:26:00, Duration: 30 day, Stop date: 12/27/12 14:25:00 Insulin regular 100 99 mL, Rate: Titrate per ICU dosing 11/21/2012 11/24/2012 Discontinued unit + Sodium guidelines, Dosing Weight 79.545, Chloride 0.9% kg, Route: IV, Total Volume: 100 (titrate) 99 mL mL, Duration: 30 day, Stop date: 12/21/12 4:08:00, Replace Every: 24 hr vecuronium 50 mg + 50 mL, Rate: Titrate as directed, 11/18/2012 11/18/2012 Discontinued Sodium Chloride 0.9% Dosing Weight 79.545, kg, Route: (titrate) 50 mL IV, Total Volume: 50 mL, Duration: 30 day, Stop date: 12/18/12 8:16:00, Replace Every: 24 hr propofol 10 mg/ml 1,000 mg, 100 mL, Rate: Titrate as 11/18/2012 11/18/2012 Discontinued (titrate) 1,000 mg directed, Dosing Weight 79.545, kg, Route: IV, Total Volume: 100 ml, Start date: 11/18/12 8:16:00, Duration: 30 day, Stop date: 12/18/12 8:15:00, Replace Every: 12 hrIf Diprivan - change bottle & tubing every 12 hrPer state nursing law propofol can only be given by a nurse if patient is intubated or being intubated (unless the nurse is a FILTERING MACHINE TENDER HELPER). Same as: Diprivan D5W 1/2NS + KCL 1,000 mL, Rate: 125 ml/hr, Infuse 11/26/2012 12/06/2012 Discontinued 20mEq/L 1000ml over: 8 hr, Route: IV, Dosing (Premix) 1,000 mL Weight 79.545 kg, Total Volume: 1,000, Start date: 11/26/12 23:59:00, Duration: 30 day, Stop date: 12/26/12 23:58:00PREMIX IV - Do Not Alter Insulin regular 10 unit, 0.1 mL, Route: SUB-Q, Drug 12/16/2012 12/17/2012 Discontinued form: SOLAlize, ADRIANN, Dosing Weight 79.545, kg, PRN Abnormal Lab Result, Start date: 12/16/12 4:53:00, Duration: 30 day, Stop date: 01/15/13 3:52:00, For FSBG 200mg/dL - 249mg/dL For FSBG 200mg/dL - 249mg/dL(Same as: Humulin R) Roll in palms of hands gently; Do not shake vigorously. "single patient use only"(Restricted to patients requiring a dose > 60 units) Stable for 28 days at room temperatureExpires in days from Date Insulin regular 15 unit, 0.15 mL, Route: SUB-Q, 12/16/2012 12/17/2012 Discontinued Drug form: SOLN, PRN, Dosing Weight 79.545, kg, PRN Abnormal Lab Result, Start date: 12/16/12 4:53:00, Duration: 30 day, Stop date: 01/15/13 3:52:00, for FSBG > 250mg/dL for FSBG > 250mg/dL(Same as: Humulin R) Roll in palms of hands gently; Do not shake vigorously. "single patient use only"(Restricted to patients requiring a dose > 60 units) Stable for 28 days at room temperatureExpires in days from Date Insulin regular 5 unit, 0.05 mL, Route: SUB-Q, Drug 12/16/2012 12/17/2012 Discontinued form: SOLN, PRN, Dosing Weight 79.545, kg, PRN Abnormal Lab Result, Start date: 12/16/12 4:53:00, Duration: 30 day, Stop date: 01/15/13 3:52:00, For FSBG 150mg/dL - 199 mg/dL For FSBG 150mg/dL - 199 mg/dL(Same as: Humulin R) Roll in palms of hands gently; Do not shake vigorously. "single patient use only"(Restricted to patients requiring a dose > 60 units) Stable for 28 days at room temperatureExpires in days from Date Dextrose 50% Syringe 12.5 gm, 25 mL, Route: IVP, Drug 12/16/2012 12/16/2012 Discontinued Form: INJ, Dosing Weight 79.545, kg, PRN, PRN Abnormal Lab Result, Start date: 12/16/12 4:53:00, Duration: 30 day, Stop date: 01/15/13 3:52:00, For FSBG 40mg/dL - 60mg/dL For FSBG 40mg/dL - 60mg/dL Dextrose 50% Syringe 25 gm, 50 mL, Route: IVP, Drug 12/16/2012 12/16/2012 Discontinued Form: INJ, Dosing Weight 79.545, kg, PRN, PRN Abnormal Lab Result, Start date: 12/16/12 4:53:00, Duration: 30 day, Stop date: 01/15/13 3:52:00, For FSBG < 40mg/dL For FSBG < 40mg/dL Protonix 40 mg, 1 tab, Route: PO, Drug form: 01/09/2013 01/11/2013 Discontinued ECTAB, Before Dinner, Dosing Weight 79.545, kg, Start date: 01/09/13 16:30:00, Duration: 30 day, Stop date: 02/07/13 16:30:00Tablet should not be chewed or crushed.(Same as: Protonix) Tylenol 1,000 mg, 2 tab, Route: PO, Drug 11/17/2012 11/20/2012 Discontinued form: TAB, Q6H, Dosing Weight 79.545, kg, Start date: 11/17/12 0:00:00, Duration: 30 day, Stop date: 12/16/12 18:00:00Max acetaminophen 4000 mg/day (4 gm/day). (Same as: Tylenol Extra Strength) Ultram 50 mg oral 100 mg, 2 tab, Route: PO, Drug 11/17/2012 12/08/2012 Discontinued tablet form: TAB, Q6H, Dosing Weight 79.545, kg, Start date: 11/17/12 0:00:00, Duration: 30 day, Stop date: 12/16/12 18:00:00Not to exceed 400mg/day. (Same As: Ultram) Imodium A-D 1 mg, 5 mL, Route: PO, Drug form: 12/13/2012 12/17/2012 Discontinued SOLN, Q6H, Dosing Weight 79.545, kg, Start date: 12/13/12 18:00:00, Stop date: 01/12/13 12:00:00(Same as: Imodium) OXYcodone 5 mg/5 mL 5 mg, 5 mL, Route: PO, Drug form: 11/16/2012 11/17/2012 Discontinued oral solution LIQ, Q6H, Dosing Weight 79.545, kg, Start date: 11/16/12 18:13:00, Duration: 30 day, Stop date: 12/16/12 18:00:00(Same as: 'Roxicodone) Lantus 20 unit, 0.2 mL, Route: SUB-Q, Drug 11/25/2012 11/29/2012 Discontinued form: INJ, Q12H, Dosing Weight 79.545, kg, Start date: 11/25/12 21:00:00, Stop date: 12/25/12 9:00:00Same as Lantus Solostar PEN"single patient use only" Stable for 28 days at room temperature.Expires in days from Date Lomotil oral tablet 2 tab, Route: PO, Drug Form: TAB, 12/11/2012 12/13/2012 Discontinued Dosing Weight 79.545, kg, Q8H, Start date: 12/11/12 16:00:00, Stop date: 01/10/13 8:00:00(Same As: Lomotil) MAX Adult dose=8 tabs/day Cipro 500 mg, 1 tab, Route: PO, Drug 01/07/2013 01/09/2013 Completed form: TAB, [id number], Dosing Weight 79.545, kg, Start date: 01/07/13 20:00:00, Duration: 2 day, Stop date: 01/09/13 8:00:00May interfere w/enteral feedings - Take 1 hr before or 2 hrs after antacids, dairy pdt & minerals. On empty stomach. NS (Bolus) IV 1,000 1,000 mL, Rate: 1,000 ml/hr, Infuse 12/06/2012 12/06/2012 Completed mL over: 1 hr, Route: IV, Dosing Weight 79.545 kg, Total Volume: 1,000, Priority: STAT, Start date: 12/06/12 20:32:00, Duration: 1 doses or times, Stop date: 12/06/12 21:31:00, Bolus Dose Bolus Dose Dilaudid 0.2 mg, 0.1 mL, Route: IV, Drug 12/18/2012 12/18/2012 Discontinued form: INJ, ONCE, Dosing Weight 79.545, kg, Start date: 12/18/12 14:21:00, Stop date: 12/18/12 14:21:00(Same as: Dilaudid) potassium chloride 20 mEq, 100 mL, Route: IVPB, Drug 11/22/2012 11/22/2012 Completed form: INJ, Q2H, Dosing Weight 79.545, kg, Total dose=60 mEq, Start date: 11/22/12 12:00:00, Duration: 3 doses or times, Stop date: 11/22/12 16:00:00(Same as: KCL) Infuse no faster than 10 mEq/hr if given peripherally. glipiZIDE 5 mg, 1 tab, Route: PO, Drug form: 12/01/2012 01/11/2013 Discontinued TAB, Daily, Dosing Weight 79.545, kg, Start date: 12/01/12 9:00:00, Duration: 30 day, Stop date: 01/29/13 9:00:00(Same as: Glucotrol) 30 min before meals. Insulin regular 10 unit, 0.1 mL, Route: SUB-Q, Drug 12/06/2012 12/07/2012 Completed form: SOLN, ONCE, Dosing Weight 79.545, kg, Start date: 12/06/12 23:20:00, Stop date: 12/06/12 23:20:00(Same as: Humulin R) Roll in palms of hands gently; Do not shake vigorously. "single patient use only"(Restricted to patients requiring a dose > 60 units) Stable for 28 days at room temperatureExpires in days from Date heparin additive 500 mL, Rate: 28.64 ml/hr, Infuse 11/20/2012 11/25/2012 Discontinued 25,000 unit [18 over: 17.5 hr, Route: IV, Dosing unit/kg/hr] + Premix Weight 79.545 kg, Total Volume: 500 Diluent Dextrose 5% mL, Start date: 11/20/12 0:08:00, 500 mL Stop date: 12/20/12 0:07:00 heparin Route: IVP, PRN, 3,200 unit, 3.2 11/20/2012 11/25/2012 Discontinued mL, Drug form: INJ, PRN, Heparin Protocol, Start date: 11/20/12 0:08:00 Stop date: 12/20/12 0:07:00, 30 day heparin Route: IVP, PRN, 6,400 unit, 6.4 11/20/2012 11/25/2012 Discontinued mL, Drug form: INJ, PRN, Heparin Protocol, Start date: 11/20/12 0:08:00 Stop date: 12/20/12 0:07:00, 30 day Heparin - one time 6,400 unit, 6.4 mL, Route: IV, Drug 11/20/2012 11/20/2012 Completed bolus for DVT/PE form: INJ, ONCE, Dosing Weight 79.545, kg, Priority: STAT, Start date: 11/20/12 0:08:00, Stop date: 11/20/12 0:08:00 Roxicodone 5 mg, 1 tab, Route: PO, Drug form: 11/20/2012 11/20/2012 Canceled TAB, Q4H, Start date: 11/20/12 12:00:00, Duration: 30 day, Stop date: 12/20/12 8:00:00(Same as: Roxicodone) Lovenox 30 mg, 0.3 mL, Route: SUB-Q, Drug 11/17/2012 11/22/2012 Discontinued form: INJ, [id number], Dosing Weight 79.545, kg, Start date: 11/17/12 4:00:00, Duration: 30 day, Stop date: 12/16/12 16:00:00(Same as: Lovenox) Sodium Chloride 0.9% 250 mL, Rate: weight caller for use with 11/16/2012 11/17/2012 Discontinued (titrate) 250 mL blood product administration, Dosing Weight 79.545, kg, Route: IV, Total Volume: 250, Duration: 30 day, Stop date: 12/16/12 8:34:00, Replace Every: 24 hr Visipaque 320mg/ml 0 mL, Route: IVP, Drug Form: SOLN, 11/19/2012 11/19/2012 Deleted Dosing Weight 79.545, kg, ONCALL, STAT, Start date: 11/19/12 9:04:00, Duration: 1 doses or times, Dose=2.2ml/kg, Max mixo=027nt -- "To be infused by Radiology Staff ONLY" Dose=2.2ml/kg, Max annq=440rd -- "To be infused by Radiology Staff ONLY" Polysporin topical 1 appl, Route: TOP, QID, Drug form: 12/11/2012 12/30/2012 Discontinued ointment OINT, Start date: 12/11/12 13:00:00, Duration: 30 day, Stop date: 01/10/13 9:00:00(Same As: Polysporin) magnesium gluconate 1,000 mg, 2 tab, Route: PO, Drug 01/09/2013 01/11/2013 Discontinued form: TAB, TID, Dosing Weight 79.545, kg, Start date: 01/09/13 13:00:00, Duration: 30 day, Stop date: 02/08/13 9:00:00(Same as: [place])Magnesium gluconate 500mg=27mg elemental magnesium Dose= mg magnesium gluconate(___mg elemental magnesium) Immunizations Vaccine Date Status influenza virus vaccine, inactivated 11/16/2012 Auth (Verified) pneumococcal 23-valent vaccine 11/16/2012 Auth (Verified) Vital Signs Most recent to oldest [Reference Range]: 1 2 3 Height 177.8 cm (11/15/2012 07:26:00) 177.8 cm (11/15/2012 07:26:00) 177.8 cm (11/15/2012 07:15:00) Current Weight 83.7 kg (12/17/2012 01:26:00) 68.182 kg (12/05/2012 03:54:00) 68.182 kg (12/04/2012 04:24:00) Temperature Oral [96.4-99.1 DegF] 98.3 DegF (01/10/2013 23:47:00) 98.3 DegF (01/10/2013 20:35:00) 97.6 DegF (01/10/2013 15:49:00) Systolic Blood Pressure [90-140 mmHg] 98 mmHg (01/10/2013 23:47:00) 104 mmHg (01/10/2013 20:35:00) 99 mmHg (01/10/2013 15:49:00) Diastolic Blood Pressure [60-90 mmHg] 57 mmHg *LOW* (01/10/2013 23:47:00) 61 mmHg (01/10/2013 20:35:00) 61 mmHg (01/10/2013 15:49:00) Respiratory Rate [14-20 BRMIN] 18 BRMIN (01/10/2013 23:47:00) 18 BRMIN (01/10/2013 20:35:00) 18 BRMIN (01/10/2013:49:00) Peripheral Pulse Rate [60-100 bpm] 90 bpm (01/10/2013 23:47:00) 93 bpm (01/10/2013 20:35:00) 60 bpm (01/10/2013:49:00) Weight 79.545 kg (11/15/2012 07:26:00) 79.545 kg (11/15/2012 07:26:00) 79.545 kg (11/15/2012 07:15:00) Results BACTERIAL - SEROLOGY Most recent to oldest [Reference Range]: 1 2 3 MRSA by PCR Negative 1 (12/16/2012 09:07:00) 1Interpretive Data: Interpretive Data: The [employer] LightCycler MRSA assay is a qualitative test for the direct detection of nasal colonization with methicillin-resistant Staphylococcus aureus (MRSA) to aid in the prevention and control of MRSA infections in healthcare settings. A positive result does not indicate an infection or require treatment. A negative result does not exclude colonization or infection. The polymerase chain reaction (PCR) assay detects a proprietary sequence indicat john of the integration of the SCCmec cassette into the Staphylococcus aureus chr omosome, indicating the presence of MRSA DNA. The assay utilizes FDA cleared IV D reagents. Performance characteristics have been verified by the [facility] within the [facility]. The [facility]oratory is authorized under the Clinical Laboratory Improvement Amendment of 1 988 (CLIA-88) to perform high complexity testing. BODY FLUIDS Most recent to oldest [Reference Range]: 1 2 3 Amylase BF 86 unit/L 2 *NA* (11/24/2012 11:29:00) Amyl BF Type Ascites *NA* (11/24/2012 11:29:00) Color BF [Colorless] Dark Yellow (11/24/2012 11:29:00) Clarity BF [Clear] Slight Cloudy (11/24/2012 11:29:00) Supernat BF [Colorless] Yellow *ABN* (11/24/2012 11:29:00) [place] [address] /mm3 3 *NA* (11/24/2012 11:29:00) WBC BF 480 /mm3 4 *NA* (11/24/2012 11:29:00) Segs BF 50 % 5 *NA* (11/24/2012 11:29:00) Lymph BF 9 % *NA* (11/24/2012 11:29:00) Macrophage BF 41 % *NA* (11/24/2012 11:29:00) CellCnt BF Type Ascites (11/24/2012 11:29:00) 2Interpretive Data: No established reference ranges. 3Interpretive Data: No established reference ranges. 4Interpretive Data: No established reference ranges. 5Interpretive Data: No established reference ranges. BEDSIDE GLUCOSE TESTING Most recent to oldest [Reference Range]: 1 2 3 Glucose POC [70-99 mg/dL] 127 mg/dL 6 *HI* (01/10/2013 21:13:00) 174 mg/dL 7 *HI* (01/10/2013 16:39:00) 91 mg/dL 8 (01/10/2013 11:50:00) Gluc POC Comment 1 Notify RN/MD *NA* (01/10/2013 21:13:00) Notify RN/MD *NA* (01/10/2013 16:39:00) Notify RN/MD *NA* (01/10/2013 11:50:00) 6Interpretive Data: Upper Reportable Limit: 200 mg/dL. 7Interpretive Data: Upper Reportable Limit: 200 mg/dL. 8Interpretive Data: Upper Reportable Limit: 200 mg/dL. URINALYSIS Most recent to oldest [Reference Range]: 1 2 3 UA Turbidity [Clear] Clear (01/03/2013 04:14:00) Clear (12/20/2012 06:44:13) Clear (12/14/2012 03:00:00) UA Color [Yellow] Yellow *NA* (01/03/2013 04:14:00) Yellow *NA* (12/20/2012 06:44:13) Yellow *NA* (12/14/2012 03:00:00) UA pH [5.0-8.0] 6.0 (01/03/2013 04:14:00) 5.0 (12/20/2012 06:44:13) 5.5 (12/14/2012 03:00:00) UA Spec Grav [<=1.030] 1.018 (01/03/2013 04:14:00) 1.009 (12/20/2012 06:44:13) 1.012 (12/14/2012 03:00:00) UA Glucose [Negative mg/dL] Negative mg/dL *NA* (01/03/2013 04:14:00) Negative mg/dL *NA* (12/20/2012 06:44:13) Negative mg/dL *NA* (12/14/2012 03:00:00) UA Blood [Negative] Negative (01/03/2013 04:14:00) Negative (12/20/2012 06:44:13) Negative (12/14/2012 03:00:00) UA Ketones [Negative mg/dL] Negative mg/dL *NA* (01/03/2013 04:14:00) Negative mg/dL *NA* (12/20/2012 06:44:13) Negative mg/dL *NA* (12/14/2012 03:00:00) UA Protein [Negative mg/dL] 10 mg/dL *ABN* (01/03/2013 04:14:00) Negative mg/dL (12/20/2012 06:44:13) 20 mg/dL *ABN* (12/14/2012 03:00:00) UA Urobilinogen [0.1-1.0 mg/dL] <=1.0 mg/dL *NA* (01/03/2013 04:14:00) <=1.0 mg/dL *NA* (12/20/2012 06:44:13) <=1.0 mg/dL *NA* (12/14/2012 03:00:00) UA Bili [Negative] Negative *NA* (01/03/2013 04:14:00) Negative *NA* (12/20/2012 06:44:13) Negative *NA* (12/14/2012 03:00:00) UA Leuk Est [Negative] Trace *ABN* (01/03/2013 04:14:00) Trace *ABN* (12/20/2012 06:44:13) Small *ABN* (12/14/2012 03:00:00) UA Nitrite [Negative] Positive *ABN* (01/03/2013 04:14:00) Negative (12/20/2012 06:44:13) Negative (12/14/2012 03:00:00) UA WBC [0-5 /HPF] 6 /HPF *HI* (01/03/2013 04:14:00) 7 /HPF *HI* (12/20/2012 06:44:13) 8 /HPF *HI* (12/14/2012 03:00:00) UA RBC [0-2 /HPF] 1 /HPF (01/03/2013 04:14:00) <1 /HPF (12/20/2012 06:44:13) 1 /HPF (12/14/2012 03:00:00) UA Bacteria [None Seen /HPF] Few /HPF *NA* (01/03/2013 04:14:00) Occasional /HPF *NA* (12/20/2012 06:44:13) Many /HPF *ABN* (12/14/2012 03:00:00) UA Sq Epi [Few /LPF] Few /LPF *NA* (01/03/2013 04:14:00) Occasional /LPF *NA* (12/14/2012 03:00:00) UA Sq Epi None Seen *NA* (12/20/2012 06:44:13) UA Hyal Cast [0-2 /LPF] 3 /LPF *HI* (01/03/2013 04:14:00) 5 /LPF *HI* (11/18/2012 16:54:00) UA Renal Epi [<=0 /LPF] 1 /LPF *HI* (01/03/2013 04:14:00) UA Mucus [None Seen /LPF] Few /LPF *NA* (01/03/2013 04:14:00) Few /LPF *NA* (12/20/2012 06:44:13) Few /LPF *NA* (12/14/2012 03:00:00) Micro? Performed *NA* (12/14/2012 03:00:00) Performed *NA* (12/06/2012 20:39:11) BLOOD BANK RESULTS Most recent to oldest [Reference Range]: 1 2 3 ABO/Rh O POS *Unknown* (12/19/2012 05:00:00) O POS *Unknown* (12/15/2012 17:45:00) O POS *Unknown* (12/07/2012 03:30:00) Antibody Scrn Negative (12/19/2012 05:00:00) Negative (12/15/2012 17:45:00) Negative (12/07/2012 03:30:00) Cryo product Modification Required (11/16/2012 00:09:00) FFP product Product available (11/29/2012 13:14:00) Product available (11/21/2012 11:36:00) Product available (11/18/2012 04:12:00) Platelet product Product available (11/16/2012 00:09:00) Product available (11/15/2012 22:15:00) RBC product Product available (12/16/2012 01:01:00) Product available (12/15/2012 18:18:00) Product available (12/08/2012 15:27:00) CHEMISTRY Most recent to oldest [Reference Range]: 1 2 3 Sodium Lvl [135-145 mEq/L] 136 mEq/L (01/08/2013 03:16:00) 136 mEq/L (01/04/2013 12:12:00) 134 mEq/L *LOW* (01/02/2013 04:02:00) Potassium Lvl [3.5-5.1 mEq/L] 4.3 mEq/L (01/08/2013 03:16:00) 4.4 mEq/L (01/04/2013 12:12:00) 4.2 mEq/L (01/02/2013 04:02:00) Chloride Lvl [95-109 mEq/L] 100 mEq/L (01/08/2013 03:16:00) 99 mEq/L (01/04/2013 12:12:00) 98 mEq/L (01/02/2013 04:02:00) CO2 [24-32 mEq/L] 27 mEq/L (01/08/2013 03:16:00) 28 mEq/L (01/04/2013 12:12:00) 24 mEq/L (01/02/2013 04:02:00) AGAP [10.0-20.0 mEq/L] 13.3 mEq/L (01/08/2013 03:16:00) 13.4 mEq/L (01/04/2013 12:12:00) 16.2 mEq/L (01/02/2013 04:02:00) Creatinine Lvl [0.5-1.4 mg/dL] 0.4 mg/dL *LOW* (01/08/2013 03:16:00) 0.5 mg/dL (01/04/2013 12:12:00) 0.5 mg/dL (01/02/2013 04:02:00) eGFR 150 mL/min/1.73m2 9 *NA* (01/08/2013 03:16:00) 137 mL/min/1.73m2 10 *NA* (01/04/2013 12:12:00) 137 mL/min/1.73m2 11 *NA* (01/02/2013 04:02:00) BUN [7-22 mg/dL] 10 mg/dL (01/08/2013 03:16:00) 11 mg/dL (01/04/2013 12:12:00) 12 mg/dL (01/02/2013 04:02:00) B/C Ratio [6-25] 20 (12/07/2012 03:51:00) 22 (12/01/2012 03:05:00) 27 *HI* (11/24/2012 09:19:00) Glucose Lvl [70-99 mg/dL] 67 mg/dL 12 *LOW* (01/08/2013 03:16:00) 60 mg/dL 13 *LOW* (01/04/2013 12:12:00) 119 mg/dL 14 *HI* (01/02/2013 04:02:00) Total Protein [6.4-8.4 g/dL] 5.3 g/dL *LOW* (12/21/2012 02:40:00) 4.9 g/dL *LOW* (12/07/2012 03:51:00) 5.7 g/dL *LOW* (12/01/2012 03:05:00) Albumin Lvl [3.5-5.0 g/dL] 1.9 g/dL *LOW* (12/21/2012 02:40:00) 1.8 g/dL *LOW* (12/07/2012 03:51:00) 1.8 g/dL *LOW* (12/01/2012 03:05:00) Globulin [2.0-4.0 g/dL] 3.4 g/dL (12/21/2012 02:40:00) 3.1 g/dL (12/07/2012 03:51:00) 3.9 g/dL (12/01/2012 03:05:00) A/G Ratio [0.7-1.6] 0.6 *LOW* (12/21/2012 02:40:00) 0.6 *LOW* (12/07/2012 03:51:00) 0.5 *LOW* (12/01/2012 03:05:00) Calcium Lvl [8.5-10.5 mg/dL] 9.5 mg/dL (01/08/2013 03:16:00) 8.5 mg/dL (01/04/2013 12:12:00) 9.0 mg/dL (01/02/2013 04:02:00) Phosphorus [2.5-4.5 mg/dL] 6.1 mg/dL *HI* (01/04/2013 12:12:00) 5.1 mg/dL *HI* (12/31/2012 06:47:00) 5.0 mg/dL *HI* (12/28/2012 11:03:00) Magnesium Lvl [1.8-2.4 mg/dL] 1.4 mg/dL *LOW* (01/08/2013 03:16:00) 1.6 mg/dL *LOW* (01/04/2013 12:12:00) 1.6 mg/dL *LOW* (01/03/2013 04:08:00) ALT [0-65 unit/L] 40 unit/L (12/21/2012 02:40:00) 49 unit/L (12/07/2012 03:51:00) 174 unit/L *HI* (12/01/2012 03:05:00) AST [0-37 unit/L] 22 unit/L (12/21/2012 02:40:00) 28 unit/L (12/07/2012 03:51:00) 119 unit/L *HI* (12/01/2012 03:05:00) Alk Phos [39-136 unit/L] 352 unit/L *HI* (12/21/2012 02:40:00) 306 unit/L *HI* (12/07/2012 03:51:00) 383 unit/L *HI* (12/01/2012 03:05:00) Bili Total [0.2-1.3 mg/dL] 0.5 mg/dL (12/21/2012 02:40:00) 0.9 mg/dL (12/07/2012 03:51:00) 1.9 mg/dL *HI* (12/01/2012 03:05:00) Bili Direct [0.0-0.3 mg/dL] 0.3 mg/dL (12/21/2012 02:40:00) 0.8 mg/dL *HI* (11/29/2012 00:17:00) 1.0 mg/dL *HI* (11/28/2012 00:10:00) Bili Indirect [0.0-1.0 mg/dL] 0.2 mg/dL (12/21/2012 02:40:00) 0.4 mg/dL (11/29/2012 00:17:00) 0.4 mg/dL (11/28/2012 00:10:00) Amylase Lvl [25-115 unit/L] 148 unit/L *HI* (11/24/2012 09:19:00) Lipase Lvl [73-393 unit/L] 262 unit/L (11/28/2012 00:10:00) 774 unit/L *HI* (11/27/2012 00:27:54) 952 unit/L *HI* (11/25/2012 02:16:00) Lactic Acid Lvl [0.5-2.2 mMol/L] 1.9 mMol/L (12/15/2012 17:44:54) 2.6 mMol/L *HI* (12/07/2012 03:51:34) 2.2 mMol/L (11/16/2012 19:54:38) Total CK [12-191 unit/L] 9094 unit/L *HI* (11/17/2012 00:28:39) 46874 unit/L *HI* (11/16/2012 01:06:04) Myoglobin [25-72 ng/mL] 1958 ng/mL *HI* (11/17/2012 00:28:39) 5256 ng/mL *HI* (11/16/2012 01:06:04) U Myoglobin [0-30 ng/mL] 501 ng/mL *HI* (11/16/2012 01:07:19) Trig [<=149 mg/dL] 279 mg/dL *HI* (11/21/2012 05:01:00) Hgb A1C [<=5.6 %] 5.6 % (11/17/2012 00:28:54) Ca Ion WB [1.05-1.25 mMol/L] 1.19 mMol/L (12/31/2012 09:27:19) 1.19 mMol/L (12/28/2012 11:03:00) 1.05 mMol/L (12/20/2012 04:50:00) Ca Norm WB [1.05-1.25 mMol/L] 1.17 mMol/L (12/31/2012 09:27:19) 1.16 mMol/L (12/28/2012 11:03:00) 1.05 mMol/L (12/20/2012 04:50:00) Vanco Tr TND 1500 *NA* (12/22/2012 15:00:00) 1800 *NA* (12/16/2012 10:29:47) 11/22/12 *NA* (11/21/2012 05:01:00) Vanco Tr 8.4 ug/ml 15 *NA* (12/22/2012 15:00:00) 6.7 ug/ml 16 *NA* (12/16/2012 10:29:47) 10.3 ug/ml 17 *NA* (11/21/2012 05:01:00) Etoh (%) .229 % 18 *NA* (11/15/2012 04:10:00) Ethanol Lvl 229 mg/dL 19 *NA* (11/15/2012 04:10:00) pH Tom [7.28-7.42] 7.04 20 *CRIT* (11/15/2012 04:10:59) pCO2 Tom [38-52 mmHg] 69 mmHg *HI* (11/15/2012 04:10:59) pO2 Tom [20-49 mmHg] 47 mmHg (11/15/2012 04:10:59) HCO3 Tom [22-26 mMol/L] 19 mMol/L *LOW* (11/15/2012 04:10:59) BE Tom [-2-2 mMol/L] -13 mMol/L *LOW* (11/15/2012 04:10:59) O2 Sat Tom [40.0-70.0 %] 60.2 % (11/15/2012 04:10:59) Temp Tom 37.0 DegC *NA* (11/15/2012 04:10:59) POC A Hct [42.0-54.0 %] 16.0 % *CRIT* (12/07/2012 03:34:00) 26.0 % *LOW* (11/22/2012 15:16:00) 26.0 % *LOW* (11/21/2012 23:47:00) POC A Ca Ion [1.05-1.25 mMol/L] 1.10 mMol/L (12/07/2012 03:34:00) 1.22 mMol/L (11/22/2012 15:16:00) 1.15 mMol/L (11/21/2012 23:47:00) POC A K [3.5-5.1 mEq/L] 4.7 mEq/L (12/07/2012 03:34:00) 3.5 mEq/L (11/22/2012 15:16:00) 3.2 mEq/L *LOW* (11/21/2012 23:47:00) POC A Source ART *NA* (12/07/2012 03:34:00) ART *NA* (11/30/2012 01:03:00) ART *NA* (11/22/2012 15:16:00) POC A Temp 37.0 DegC *NA* (12/07/2012 03:34:00) 37.0 DegC *NA* (11/30/2012 01:03:00) 37.0 DegC *NA* (11/22/2012 15:16:00) POC A pH [7.35-7.45] 7.46 *HI* (12/07/2012 03:34:00) 7.49 *HI* (11/30/2012 01:03:00) 7.43 (11/22/2012 15:16:00) POC A PCO2 [35-45 mmHg] 37 mmHg (12/07/2012 03:34:00) 39 mmHg (11/30/2012 01:03:00) 49 mmHg *HI* (11/22/2012 15:16:00) POC A PO2 [80-100 mmHg] 120 mmHg *HI* (12/07/2012 03:34:00) 140 mmHg *HI* (11/30/2012 01:03:00) 74 mmHg *LOW* (11/22/2012 15:16:00) POC A HCO3 [22-26 mMol/L] 26 mMol/L (12/07/2012 03:34:00) 30 mMol/L *HI* (11/30/2012 01:03:00) 33 mMol/L *HI* (11/22/2012 15:16:00) POC A BE [-2-2 mMol/L] 2 mMol/L (12/07/2012 03:34:00) 6 mMol/L *HI* (11/30/2012 01:03:00) 7 mMol/L *HI* (11/22/2012 15:16:00) POC A O2 Sat [95.0-100.0 %] 99.0 % (12/07/2012 03:34:00) 99.0 % (11/30/2012 01:03:00) 95.0 % (11/22/2012 15:16:00) POC A Glu [70-99 mg/dL] 254 mg/dL *HI* (12/07/2012 03:34:00) 84 mg/dL (11/22/2012 15:16:00) 166 mg/dL *HI* (11/21/2012 23:47:00) POC A LA [0.5-2.2 mMol/L] 2.4 mMol/L *HI* (12/07/2012 03:34:00) 0.9 mMol/L (11/22/2012 15:16:00) 1.5 mMol/L (11/21/2012 23:47:00) POC A Na [135-145 mEq/L] 129 mEq/L *LOW* (12/07/2012 03:34:00) 146 mEq/L *HI* (11/22/2012 15:16:00) 146 mEq/L *HI* (11/21/2012 23:47:00) POC A Mode PRVC-SIMV *NA* (11/15/2012 20:31:00) POC A Mech Rate [0-70 bpm] 12 bpm (11/15/2012 20:31:00) POC A PEEP [0.0-40.0 cmH20] 5.0 cmH20 (11/15/2012 20:31:00) POC A %FIO2 [18.0-100.0 %] 40.0 % (11/15/2012 20:31:00) POC V Source TOM *NA* (12/16/2012 05:34:00) TOM *NA* (12/16/2012 05:31:00) TOM *NA* (12/15/2012 21:50:00) POC V Temp 37.0 DegC *NA* (12/16/2012 05:34:00) 37.0 DegC *NA* (12/16/2012 05:31:00) 37.0 DegC *NA* (12/15/2012 21:50:00) POC V pH [7.28-7.42] 7.31 (12/16/2012 05:34:00) 7.32 (12/16/2012 05:31:00) 7.31 (12/15/2012 21:50:00) POC V PCO2 [38-52 mmHg] 45 mmHg (12/16/2012 05:34:00) 44 mmHg (12/16/2012 05:31:00) 45 mmHg (12/15/2012 21:50:00) POC V PO2 [20-49 mmHg] 36 mmHg (12/16/2012 05:34:00) 37 mmHg (12/16/2012 05:31:00) 30 mmHg (12/15/2012 21:50:00) POC V HCO3 [22-26 mmol/L] 23 mmol/L (12/16/2012 05:34:00) 23 mmol/L (12/16/2012 05:31:00) 23 mmol/L (12/15/2012 21:50:00) POC V BE [-2-2 mmol/L] -4 mmol/L *LOW* (12/16/2012 05:34:00) -3 mmol/L *LOW* (12/16/2012 05:31:00) -3 mmol/L *LOW* (12/15/2012 21:50:00) POC V O2 Sat [40.0-70.0 %] 63.0 % (12/16/2012 05:34:00) 65.0 % (12/16/2012 05:31:00) 50.0 % (12/15/2012 21:50:00) POC V Glu [70-99 mg/dL] 208 mg/dL *HI* (12/16/2012 05:34:00) 194 mg/dL *HI* (12/15/2012 21:50:00) 170 mg/dL *HI* (12/15/2012 16:55:00) POC V Hct [42.0-54.0 %] 33.0 % *LOW* (12/16/2012 05:34:00) 24.0 % *LOW* (12/15/2012 21:50:00) 20.0 % *CRIT* (12/15/2012 16:55:00) POC V Ion Ca [1.05-1.25 mMol/L] 1.10 mMol/L (12/16/2012 05:34:00) 1.13 mMol/L (12/15/2012 21:50:00) 1.12 mMol/L (12/15/2012 16:55:00) POC V K [3.5-5.1 mEq/L] 3.6 mEq/L (12/16/2012 05:34:00) 4.1 mEq/L (12/15/2012 21:50:00) 4.7 mEq/L (12/15/2012 16:55:00) POC V LA [0.5-2.2 mMol/L] 1.3 mMol/L (12/16/2012 05:34:00) 1.5 mMol/L (12/15/2012 21:50:00) 1.4 mMol/L (12/15/2012 16:55:00) POC V Na [135-145 mEq/L] 126 mEq/L *LOW* (12/16/2012 05:34:00) 125 mEq/L *LOW* (12/15/2012 21:50:00) 121 mEq/L *LOW* (12/15/2012 16:55:00) 9Result Comment: The eGFR is calculated using the CKD-EPI formula. In most young, healthy individuals the eGFR will be >90 mL/min/1.73m2. The eGFR declines with age. An eGFR of 60-89 may be normal in some populations, particularly the elderly, for whom the CKD-EPI formula has not been extensively validated. Use of the eGFR is not recommended in the following populations: Individuals with unstable creatinine concentrations, including patients and those with serious co-morbid conditions. Patients with extremes in muscle mass or diet. The data above are obtained from the National Kid[employer] Education Program ( [employer]) which additionally recommends that when the eGFR is used in patients with extremes of body mass index for purposes of drug dosing, the eGFR should be mul tiplied by the estimated BMI. 10Result Comment: The eGFR is calculated using the CKD-EPI formula. In most young, healthy individuals the eGFR will be >90 mL/min/1.73m2. The eGFR declines with age. An eGFR of 60-89 may be normal in some populations, particularly the elderly, for whom the CKD-EPI formula has not been extensively validated. Use of the eGFR is not recommended in the following populations: Individuals with unstable creatinine concentrations, including patients and those with serious co-morbid conditions. Patients with extremes in muscle mass or diet. The data above are obtained from the National [employer] Education Program ( [employer]) which additionally recommends that when the eGFR is used in patients with extremes of body mass index for purposes of drug dosing, the eGFR should be mul tiplied by the estimated BMI. 11Result Comment: The eGFR is calculated using the CKD-EPI formula. In most young, healthy individuals the eGFR will be >90 mL/min/1.73m2. The eGFR declines with age. An eGFR of 60-89 may be normal in some populations, particularly the elderly, for whom the CKD-EPI formula has not been extensively validated. Use of the eGFR is not recommended in the following populations: Individuals with unstable creatinine concentrations, including patients and those with serious co-morbid conditions. Patients with extremes in muscle mass or diet. The data above are obtained from the National [employer] Education Program ( [employer]) which additionally recommends that when the eGFR is used in patients with extremes of body mass index for purposes of drug dosing, the eGFR should be mul tiplied by the estimated BMI. 12Interpretive Data: Adult reference range values reflect the clinical guidelines of the [place] [employer]. 13Interpretive Data: Adult reference range values reflect the clinical guidelines of the [place] [employer]. 14Interpretive Data: Adult reference range values reflect the clinical guidelines of the [place] [employer]. 15Interpretive Data: Therapeutic Range: Trough: 10 - 20 ug/mL Peak: 20 - 40 ug/mL Potential Toxicity: >80 ug/mL 16Interpretive Data: Therapeutic Range: Trough: 10 - 20 ug/mL Peak: 20 - 40 ug/mL Potential Toxicity: >80 ug/mL 17Interpretive Data: Therapeutic Range: Trough: 10 - 20 ug/mL Peak: 20 - 40 ug/mL Potential Toxicity: >80 ug/mL 18Interpretive Data: Negative Range: <0.003% Toxic Range: >0.25% 19Interpretive Data: Negative Range: <3 mg/dL Toxic Range: >250 mg/dL 20Result Comment: Critical Result(s) called to Marie Fitzgerald at 11/15/2012 04:31 by stp. Read back OK. HEMATOLOGY Most recent to oldest [Reference Range]: 1 2 3 WBC [3.7-10.4 K/CMM] 5.5 K/CMM (01/08/2013 03:16:00) 6.7 K/CMM (01/04/2013 12:12:00) 5.7 K/CMM (12/31/2012 06:47:00) RBC [4.70-6.10 M/CMM] 3.67 M/CMM *LOW* (01/08/2013 03:16:00) 3.59 M/CMM *LOW* (01/04/2013 12:12:00) 3.58 M/CMM *LOW* (12/31/2012 06:47:00) Hgb [14.0-18.0 g/dL] 9.9 g/dL *LOW* (01/08/2013 03:16:00) 9.8 g/dL *LOW* (01/04/2013 12:12:00) 9.9 g/dL *LOW* (12/31/2012 06:47:00) Hct [42.0-54.0 %] 30.2 % *LOW* (01/08/2013 03:16:00) 29.5 % *LOW* (01/04/2013 12:12:00) 30.8 % *LOW* (12/31/2012 06:47:00) MCV [80.0-94.0 fL] 82.2 fL (01/08/2013 03:16:00) 82.4 fL (01/04/2013 12:12:00) 86.0 fL (12/31/2012 06:47:00) MCH [27.0-31.0 pg] 27.1 pg (01/08/2013 03:16:00) 27.3 pg (01/04/2013 12:12:00) 27.7 pg (12/31/2012 06:47:00) MCHC [32.0-36.0 g/dL] 33.0 g/dL (01/08/2013 03:16:00) 33.2 g/dL (01/04/2013 12:12:00) 32.2 g/dL (12/31/2012 06:47:00) RDW [11.5-14.5 %] 15.2 % *HI* (01/08/2013 03:16:00) 15.2 % *HI* (01/04/2013 12:12:00) 15.4 % *HI* (12/31/2012 06:47:00) Platelet [133-450 K/CMM] 378 K/CMM (01/08/2013 03:16:00) 379 K/CMM (01/04/2013 12:12:00) 293 K/CMM (12/31/2012 06:47:00) MPV [7.4-10.4 fL] 6.9 fL *LOW* (01/08/2013 03:16:00) 7.1 fL *LOW* (01/04/2013 12:12:00) 7.4 fL (12/31/2012 06:47:00) Segs [45.0-75.0 %] 51.7 % (01/08/2013 03:16:00) 66.0 % (01/04/2013 12:12:00) 55.8 % (12/31/2012 06:47:00) Bands [0.0-11.0 %] 4.0 % (12/15/2012 08:47:00) 2.0 % (12/10/2012 00:59:00) 6.0 % (12/07/2012 18:27:05) Lymphocytes [20.0-40.0 %] 32.6 % (01/08/2013 03:16:00) 22.7 % (01/04/2013 12:12:00) 32.1 % (12/31/2012 06:47:00) Atypical Lymphs [<=0.0 %] 0.0 % (12/15/2012 08:47:00) 1.0 % *HI* (12/10/2012 00:59:00) 0.0 % (12/07/2012 18:27:05) Monocytes [2.0-12.0 %] 11.0 % (01/08/2013 03:16:00) 9.6 % (01/04/2013 12:12:00) 10.6 % (12/31/2012 06:47:00) Eosinophils [0.0-4.0 %] 4.2 % *HI* (01/08/2013 03:16:00) 1.5 % (01/04/2013 12:12:00) 1.2 % (12/31/2012 06:47:00) Basophils [0.0-1.0 %] 0.5 % (01/08/2013 03:16:00) 0.2 % (01/04/2013 12:12:00) 0.3 % (12/31/2012 06:47:00) Metamyelocytes [0.0-1.0 %] 1.0 % (12/15/2012 08:47:00) 1.0 % (12/10/2012 00:59:00) 2.0 % *HI* (12/07/2012 18:27:05) Myelocytes [<=0.0 %] 2.0 % *HI* (12/10/2012 00:59:00) 3.0 % *HI* (12/04/2012 01:48:00) 2.0 % *HI* (11/24/2012 00:30:23) Segs-Bands # [1.5-8.1 K/CMM] 2.9 K/CMM (01/08/2013 03:16:00) 4.4 K/CMM (01/04/2013 12:12:00) 3.2 K/CMM (12/31/2012 06:47:00) Lymphocytes # [1.0-5.5 K/CMM] 1.8 K/CMM (01/08/2013 03:16:00) 1.5 K/CMM (01/04/2013 12:12:00) 1.8 K/CMM (12/31/2012 06:47:00) Monocytes # [0.0-0.8 K/CMM] 0.6 K/CMM (01/08/2013 03:16:00) 0.6 K/CMM (01/04/2013 12:12:00) 0.6 K/CMM (12/31/2012 06:47:00) Eosinophils # [0.0-0.5 K/CMM] 0.2 K/CMM (01/08/2013 03:16:00) 0.1 K/CMM (01/04/2013 12:12:00) 0.1 K/CMM (12/31/2012 06:47:00) Basophils # [0.0-0.2 K/CMM] 0.1 K/CMM (12/14/2012 02:19:00) 0.1 K/CMM (12/13/2012 00:20:00) 0.1 K/CMM (12/12/2012 00:49:00) NRBC 2 /100WB *NA* (11/27/2012 16:12:00) 1 /100WB *NA* (11/24/2012 00:30:23) 2 /100WB *NA* (11/22/2012 00:12:00) RBC Morph Normal (11/18/2012 01:38:00) Normal (11/17/2012 17:00:30) Normal (11/15/2012 04:10:00) Anisocyte [None Seen] 1+ *ABN* (12/10/2012 00:59:00) 1+ *ABN* (12/07/2012 18:27:05) 1+ *ABN* (12/04/2012 01:48:00) Polychrom [None Seen] Slight (12/15/2012 08:47:00) Slight (12/10/2012 00:59:00) Slight (12/08/2012 00:01:00) Hypochrom [None Seen] Slight (12/08/2012 00:01:00) Slight (12/04/2012 01:48:00) Slight (11/29/2012 00:17:00) Macrocyte [None Seen] 2+ *ABN* (12/04/2012 01:48:00) 1+ *ABN* (11/25/2012 02:16:00) Microcyte [None Seen] 1+ *ABN* (12/04/2012 01:48:00) 1+ *ABN* (11/25/2012 02:16:00) Elliptocyte [None Seen] Slight *ABN* (12/02/2012 00:18:00) Slight *ABN* (11/30/2012 01:10:00) Slight *ABN* (11/29/2012 00:17:00) Toxic Gran [None Seen] Slight *ABN* (12/15/2012 08:47:00) Slight *ABN* (11/29/2012 00:17:00) Rouleaux [None Seen] Present *ABN* (12/04/2012 01:48:00) Stomatocyte [None Seen] Slight *ABN* (12/15/2012 08:47:00) Slight *ABN* (11/30/2012 01:10:00) Moderate *ABN* (11/27/2012 00:27:00) Plt Morph See Note 21 (12/15/2012 08:47:00) Normal (12/10/2012 00:59:00) Normal (12/07/2012 18:27:05) Large Plt [None Seen] Slight *ABN* (12/04/2012 01:48:00) Slight *ABN* (12/03/2012 01:27:00) Slight *ABN* (11/29/2012 00:17:00) PT [12.0-14.7 seconds] 26.9 seconds *HI* (01/10/2013 04:43:00) 28.1 seconds *HI* (01/09/2013 03:50:00) 26.5 seconds *HI* (01/08/2013 03:16:00) INR [0.85-1.17] 2.55 22 *HI* (01/10/2013 04:43:00) 2.70 23 *HI* (01/09/2013 03:50:00) 2.50 24 *HI* (01/08/2013 03:16:00) PTT [22.9-35.8 seconds] 76.0 seconds 25 *HI* (01/05/2013 05:26:27) 42.4 seconds 26 *HI* (01/01/2013 02:01:29) 49.0 seconds 27 *HI* (12/31/2012 06:47:00) Rapid TEG Sample Type Citrated Whole Blood *NA* (12/16/2012 03:34:10) Citrated Whole Blood *NA* (11/29/2012 18:01:00) Citrated Whole Blood *NA* (11/29/2012 10:58:49) ACT (TEG) [86-118 seconds] 113 seconds (12/16/2012 03:34:10) 97 seconds (11/29/2012 18:01:00) 144 seconds *HI* (11/29/2012 10:58:49) Split Point 0.6 minutes *NA* (12/16/2012 03:34:10) 0.4 minutes *NA* (11/29/2012 18:01:00) 0.8 minutes *NA* (11/29/2012 10:58:49) R-time [0.4-0.7 minutes] 0.7 minutes (12/16/2012 03:34:10) 0.5 minutes (11/29/2012 18:01:00) R-time [5.0-10.0 minutes] 6.3 minutes (12/15/2012 17:44:47) K-time [0.6-2.3 minutes] 0.9 minutes (12/16/2012 03:34:10) 0.8 minutes (11/29/2012 18:01:00) K-time [1.0-3.0 minutes] 1.1 minutes (12/15/2012 17:44:47) Angle [64-80 degrees] 78 degrees (12/16/2012 03:34:10) 81 degrees *HI* (11/29/2012 18:01:00) Angle [53.0-72.0 degrees] 75.8 degrees *HI* (12/15/2012 17:44:47) Max Amp [52-71 mm] 74 mm *HI* (12/16/2012 03:34:10) 71 mm (11/29/2012 18:01:00) Max Amp [50.0-70.0 mm] 79.7 mm *HI* (12/15/2012 17:44:47) G-value [5.0-11.6 K d/sc] 14.0 K d/sc *HI* (12/16/2012 03:34:10) 12.3 K d/sc *HI* (11/29/2012 18:01:00) G-value [4.5-11.0 K d/sc] 19.7 K d/sc *HI* (12/15/2012 17:44:47) Estimated % Lysis [0.0-7.5 %] 0.0 % (12/16/2012 03:34:10) 2.6 % (11/29/2012 18:01:00) 3.8 % 28 (11/29/2012 10:58:49) Ly30 [0.0-7.5 %] 0.0 % (12/15/2012 17:44:47) 5.0 % (11/29/2012 16:00:07) 12.3 % *HI* (11/28/2012 20:18:00) Coag Index [-3.0-3.0] 3.2 *HI* (12/15/2012 17:44:47) 4.5 *HI* (11/29/2012 16:00:07) 3.1 *HI* (11/28/2012 20:18:00) TEG Interp Thrombelastograph results show increased values of both Angle Alpha and MA. These findings are suggestive of platelet hypercoagulation. CPT:01342 *NA* (12/15/2012 17:44:47) Thrombelastograph results show shortened value of R and increased values of both Angle Alpha and MA. These findings are suggestive of platelet and enzymatic hypercoagulation which may be seen in early phase of DIC. Monitor for DIC with DIC panel may be indicated. CPT:80322 *NA* (11/29/2012 16:00:07) Thrombelastograph results show increased value of Angle Alpha. This is suggestive of hyperfibrinogenemia. Thrombelastograph results also show prolonged value of Ly30. This finding is suggestive of fibrinolysis, either therapeutic (tPA, streptokinase, or urokinase) or pathologic. For pathologic fibrinolysis (early DIC), antifibrinolytics are contraindicated since microvascular thrombosis may be exacerbated. Clinical correlation is suggested. CPT:52996 *NA* (11/28/2012 20:18:00) TEG Data See Note 29 (12/15/2012 17:44:47) See Note 30 (11/29/2012 16:00:07) See Note 31 (11/28/2012 20:18:00) 21Result Comment: Due to occassional clumps, the actual count may be slightly higher. 22Interpretive Data: RECOMMENDED RANGES FOR PROTIME INR: 2.0-3.0 for most medical and surgical thromboembolic states. 2.5-3.5 for artificial heart valves and recurrent embolism. INR SHOULD BE USED ONLY FOR PATIENTS ON STABLE ANTICOAGULANT THERAPY. 23Interpretive Data: RECOMMENDED RANGES FOR PROTIME INR: 2.0-3.0 for most medical and surgical thromboembolic states. 2.5-3.5 for artificial heart valves and recurrent embolism. INR SHOULD BE USED ONLY FOR PATIENTS ON STABLE ANTICOAGULANT THERAPY. 24Interpretive Data: RECOMMENDED RANGES FOR PROTIME INR: 2.0-3.0 for most medical and surgical thromboembolic states. 2.5-3.5 for artificial heart valves and recurrent embolism. INR SHOULD BE USED ONLY FOR PATIENTS ON STABLE ANTICOAGULANT THERAPY. 25Interpretive Data: Heparin Therapeutic Range: 57 - 92 Seconds 26Interpretive Data: Heparin Therapeutic Range: 57 - 92 Seconds 27Interpretive Data: Heparin Therapeutic Range: 57 - 92 Seconds 28Result Comment: "Significant Findings called to Juan Rodriguez_at 11/29/2012 12:37_by Lidya Velásquez.Read Back OK." 29Interpretive Data: Normal ranges are for citrated whole blood with kaolin activator. R TIME: Reflects the degree of anti-coagulation due to LMWH, unfractionated hep patrick, and coumadin as well as non-specific factor deficiencies. K TIME, ALPHA ANGLE, AND MA(MAX AMPLITUDE): Have been associated with the platelet release reaction and fibrin polymer formation. These parameters assess the speed of clot formation and the tensil strength of the clot. Higher levels are associated with hypercoagulable states. G VALUE: Another measure of clot strength. LY30: Percent lysis in 30 Minutes is associated with the degree of fibrinolysis. CI or COAG INDEX: A calculation from the above measured data indicating an overall hyper or hypo coagulability with values above (plus) +3.0 being relatively hypercoagulable and those below (minus) -3.0 being relatively hypocoagulable. These measurements are functional in nature with many variables and require close clinical correlation. Thromboelasography (TEG) is mostly used to monitor significant coagulopathy in t rauma patients or surgical patients. It assesses gloabal (primary and secondary ) hemostasis using whole blood and therefore, not expected to correlate well wit h conventional coagulation tests. TEG results need to be correlated with clinic al evaluation for patient management. 30Interpretive Data: Normal ranges are for citrated whole blood with kaolin activator. R TIME: Reflects the degree of anti-coagulation due to LMWH, unfractionated hep patrick, and coumadin as well as non-specific factor deficiencies. K TIME, ALPHA ANGLE, AND MA(MAX AMPLITUDE): Have been associated with the platelet release reaction and fibrin polymer formation. These parameters assess the speed of clot formation and the tensil strength of the clot. Higher levels are associated with hypercoagulable states. G VALUE: Another measure of clot strength. LY30: Percent lysis in 30 Minutes is associated with the degree of fibrinolysis. CI or COAG INDEX: A calculation from the above measured data indicating an overall hyper or hypo coagulability with values above (plus) +3.0 being relatively hypercoagulable and those below (minus) -3.0 being relatively hypocoagulable. These measurements are functional in nature with many variables and require close clinical correlation. Thromboelasography (TEG) is mostly used to monitor significant coagulopathy in t rauma patients or surgical patients. It assesses gloabal (primary and secondary ) hemostasis using whole blood and therefore, not expected to correlate well wit h conventional coagulation tests. TEG results need to be correlated with clinic al evaluation for patient management. 31Interpretive Data: Normal ranges are for citrated whole blood with kaolin activator. R TIME: Reflects the degree of anti-coagulation due to LMWH, unfractionated hep patrick, and coumadin as well as non-specific factor deficiencies. K TIME, ALPHA ANGLE, AND MA(MAX AMPLITUDE): Have been associated with the platelet release reaction and fibrin polymer formation. These parameters assess the speed of clot formation and the tensil strength of the clot. Higher levels are associated with hypercoagulable states. G VALUE: Another measure of clot strength. LY30: Percent lysis in 30 Minutes is associated with the degree of fibrinolysis. CI or COAG INDEX: A calculation from the above measured data indicating an overall hyper or hypo coagulability with values above (plus) +3.0 being relatively hypercoagulable and those below (minus) -3.0 being relatively hypocoagulable. These measurements are functional in nature with many variables and require close clinical correlation. Thromboelasography (TEG) is mostly used to monitor significant coagulopathy in t rauma patients or surgical patients. It assesses gloabal (primary and secondary ) hemostasis using whole blood and therefore, not expected to correlate well wit h conventional coagulation tests. TEG results need to be correlated with clinic al evaluation for patient management. IMMUNOLOGY Most recent to oldest [Reference Range]: 1 2 3 Prealbumin [18.0-45.0 mg/dL] 36.9 mg/dL (01/04/2013 12:12:00) 27.5 mg/dL (12/10/2012 00:59:00) 17.3 mg/dL *LOW* (11/30/2012 01:10:00) CRP, High Sensitivity 53.1 mg/L 32 *NA* (01/04/2013 12:12:00) 76.8 mg/L 33 *NA* (12/10/2012 00:59:00) 111.0 mg/L 34 *NA* (11/30/2012 01:10:00) Kake-HIV 1/2 Ab [Negative] Negative *NA* (12/12/2012 00:49:00) 32Interpretive Data: Low Risk: <1.0 mg/L Average Risk: 1.0 - 3.0 mg/L High Risk: >3.0 mg/L Inflammation: >10.0 mg/L 33Interpretive Data: Low Risk: <1.0 mg/L Average Risk: 1.0 - 3.0 mg/L High Risk: >3.0 mg/L Inflammation: >10.0 mg/L 34Interpretive Data: Low Risk: <1.0 mg/L Average Risk: 1.0 - 3.0 mg/L High Risk: >3.0 mg/L Inflammation: >10.0 mg/L Microbiology Reports (Most Recent Ten) PROCEDURE:Culture: Urine STATUS: Auth (Verified) BODY SITE: COLLECTED DATE/TIME: 01/03/2013 06:00:00 SOURCE: Urine, Clean Catch FREE TEXT SOURCE: FINAL REPORTS Final Report >100,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 Significant Findings Called To: Aba Correa At: 01/05/2013 11:57:33 Called By: HELDER Read Back Ok PRELIMINARY REPORTS Preliminary Report >100,000 CFU/mL Pseudomonas Species Identification And Sensitivity Pending SUSCEPTIBILITY REPORT Pseudomonas aeruginosa Antibiotic INTERP SARA Amikacin Intermediate 32 Cefepime Susceptible 8 Ciprofloxacin Susceptible <=1 Gentamicin Intermediate 8 Meropenem Susceptible <=1 Piperacillin/Tazobactam Resistant >64 Tobramycin Susceptible <=4 PROCEDURE:Culture: Urine STATUS: Auth (Verified) BODY SITE: COLLECTED DATE/TIME: 12/20/2012 13:00:00 SOURCE: Urine, Clean Catch FREE TEXT SOURCE: FINAL REPORTS Final Report No Growth PRELIMINARY REPORTS Preliminary Report No Growth; Holding PROCEDURE:Culture: Blood STATUS: Auth (Verified) BODY SITE: IJ L COLLECTED DATE/TIME: 12/20/2012 04:30:00 SOURCE: Blood FREE TEXT SOURCE: set FINAL REPORTS Final Report No Growth At 5 Days PRELIMINARY REPORTS Preliminary Report No Growth At 5 Days Preliminary Report No Growth At 2 Days Preliminary Report No Growth At 5 Days Preliminary Report No Growth At 3 Days Preliminary Report No Growth At 1 Day PROCEDURE:Culture: Blood STATUS: Auth (Verified) BODY SITE: Left Arm COLLECTED DATE/TIME: 12/20/2012 04:30:00 SOURCE: Blood FREE TEXT SOURCE: set FINAL REPORTS Final Report No Growth At 5 Days PRELIMINARY REPORTS Preliminary Report No Growth At 5 Days Preliminary Report No Growth At 1 Day Preliminary Report No Growth At 5 Days Preliminary Report No Growth At 2 Days Preliminary Report No Growth At 3 Days PROCEDURE:Culture: AFB w/Smear STATUS: Order in Progress BODY SITE: Lung Left Lower Lobe COLLECTED DATE/TIME: 12/16/2012 18:50:00 SOURCE: Bronch Hermes. Lavage FREE TEXT SOURCE: PRELIMINARY REPORTS Preliminary Report Culture In Progress Preliminary Report No AFB Isolated At 2 Weeks STAIN REPORTS Stain Report No Acid Fast Bacilli Seen On Smear PROCEDURE:Culture: BAL Quantitative w/Gram Stain STATUS: Auth (Verified) BODY SITE: Lung Left Lower Lobe COLLECTED DATE/TIME: 12/16/2012 18:50:00 SOURCE: Bronch Hermes. [place] FREE [place]: [place] [id number], trap FINAL REPORTS Final Report No Growth PRELIMINARY REPORTS Preliminary Report No Growth; Holding STAIN REPORTS Stain Report Many Wbc'S; No Organisms Seen PROCEDURE:Culture: Fungal w/Smear STATUS: Order in Progress BODY SITE: Lung Left Lower Lobe COLLECTED DATE/TIME: 12/16/2012 18:50:00 SOURCE: Bronch Hermes. Lavage FREE TEXT SOURCE: PRELIMINARY REPORTS Preliminary Report Culture In Progress Preliminary Report No Growth After 2 Weeks Incubation. Culture Held 4 Weeks STAIN REPORTS Stain Report No Yeast Or Fungal Elements Seen PROCEDURE:Culture: Fungal w/Smear STATUS: Order in Progress BODY SITE: Pelvic Abscess COLLECTED DATE/TIME: 12/16/2012 18:50:00 SOURCE: Tissue FREE TEXT SOURCE: PRELIMINARY REPORTS Preliminary Report Culture In Progress Preliminary Report No Growth After 2 Weeks Incubation. Culture Held 4 Weeks STAIN REPORTS Stain Report No Yeast Or Fungal Elements Seen PROCEDURE:Culture: Aspirate/Body Fluid/Tissue STATUS: Auth (Verified) BODY SITE: Pelvic Abscess COLLECTED DATE/TIME: 12/16/2012 18:50:00 SOURCE: Tissue FREE TEXT [place]: [place] [id number], cup FINAL REPORTS Final Report Moderate Enterobacter cloacae Moderate Enterococcus Species PRELIMINARY REPORTS Preliminary Report Moderate Gram Negative Rods, Non-Lactose Fermenters Identification And Sensitivity Pending Preliminary Report Moderate Enterobacter cloacae Moderate Enterococcus Species , Susceptibility To Follow STAIN REPORTS Stain Report Moderate WBC's Many Rbc'S Few Gram Negative Rods Critical Results Called To: [id number] Alphonso Gavin RN At: 12/16/2012 23:03:31 Called By: TR Read Back Ok SUSCEPTIBILITY REPORT Enterococcus Species Antibiotic INTERP SARA Ampicillin Susceptible <=2 Gentamycin Synergy Screen Susceptible <=500 Levofloxacin Susceptible 2 Streptomycin Synergy Screen Susceptible <=1000 Vancomycin Susceptible 2 Enterobacter cloacae Antibiotic INTERP SARA Amikacin Susceptible <=16 Ampicillin Resistant >16 Ampicillin/Sulbactam Susceptible <=8/4 Cefepime Susceptible <=4 Ceftriaxone Resistant Gentamicin Susceptible <=4 Levofloxacin Susceptible <=2 Meropenem Susceptible <=1 Piperacillin/Tazobactam Susceptible <=16 Tetracycline Susceptible <=4 Tobramycin Susceptible <=4 Trimethoprim/Sulfamethoxazole Susceptible <=2/38 PROCEDURE:Culture: Anaerobic STATUS: Auth (Verified) BODY SITE: Pelvic Abscess COLLECTED DATE/TIME: 12/16/2012 18:50:00 SOURCE: Tissue FREE TEXT [place]: [place] [id number], cup FINAL REPORTS Final Report Moderate Prevotella Species PRELIMINARY REPORTS Preliminary Report Moderate Anaerobic Gram Negative Rods Further Testing In Progress Preliminary Report Culture In Progress Preliminary Report Culture In Progress Procedures Procedures Date Related Diagnosis Shoulder repair 08/02/2012 00:00:00
--- OUTSIDE RECORDS SUMMARY | 2018-09-05 12:49 | XMS REPORT | CCD ---
Author Author Auto Generated Organization [facility] Address Unknown Phone Unavailable Care Team Providers Care Surgical Scheduler Name Role Phone Anam Marquis CP Allergies, Adverse Reactions, Alerts Substance Reaction Status NKDA Active Problem List Condition Effective Dates Status Diabetes Mellitus Resolved Pseudomonas1, 2, 3 01/03/2013 Active 1urine 01/03/13 2urine 3Problem added by Discern Expert. Medications Medication Instructions Start Date End Date Status influenza virus 0.5 mL, Route: IM, Drug Form: SUSP, 11/16/2012 11/16/2012 Completed vaccine, inactivated Start date: 11/16/12 9:00:00, Stop date: 11/16/12 9:00:00 pneumococcal 0.5 ml, Route: IM, Drug Form: INJ, 11/16/2012 11/16/2012 Completed 23-valent vaccine Start date: 11/16/12 9:00:00, Stop date: 11/16/12 9:00:00 acetaminophen-hydroc 1 tab, PO, Q4H, PRN, 45 tab, Pain 01/20/2013 Ordered odone 325 mg-5 mg Score 1-3, Substitution Allowed, oral tablet Maintenance, TAB [place] 10/325 oral 1 tab, Route: PO, Drug Form: TAB, 01/11/2013 01/19/2013 Discontinued tablet Dosing Weight 79.545, kg, Q6H, Start date: 01/11/13 6:00:00, Duration: 30 day, Stop date: 02/10/13 0:00:00Do not exceed 4gm/day of acetaminophen. (Same as: [place] 325/10) insulin glargine 20 unit, 0.2 mL, Route: SUB-Q, Drug 01/11/2013 01/19/2013 Discontinued form: INJ, Before Breakfast, Dosing Weight 79.545, kg, Start date: 01/11/13 6:30:00, Duration: 30 day, Stop date: 02/09/13 6:30:00Same as Lantus Solostar PEN"single patient use only" Stable for 28 days at room temperature.Expires in days from Date metFORmin 500 mg 500 mg, 1 tab, Route: PO, Drug 01/17/2013 01/19/2013 Discontinued oral tablet form: TAB, TID-Meals, Dosing Weight 79.545, kg, Start date: 01/17/13 18:00:00, Duration: 30 day, Stop date: 02/16/13 17:00:00(Same as: Glucophage) Take with meal glipiZIDE 5 mg oral 5 mg, 1 tab, Route: PO, Drug form: 01/11/2013 01/21/2013 Discontinued tablet TAB, Before Breakfast, Dosing Weight 79.545, kg, Start date: 01/11/13 6:30:00, Duration: 30 day, Stop date: 02/09/13 6:30:00(Same as: Glucotrol) 30 min before meals. warfarin 2 mg, 1 tab, Route: PO, Drug form: 01/18/2013 01/18/2013 Completed TAB, Q5PM, Dosing Weight 79.545, kg, Start date: 01/18/13 17:00:00, Duration: 1 doses or times, Stop date: 01/18/13 17:00:00Nurse to ensure documentation of patient education per anticoagulation policy.Avoid large intake of vitamin-K containing foods diet.(Same As: Coumadin) Lantus 10 unit, 0.1 mL, Route: SUB-Q, Drug 01/20/2013 01/20/2013 Discontinued form: INJ, Before Breakfast, Dosing Weight 79.545, kg, Start date: 01/20/13 12:35:00, Duration: 30 day, Stop date: 02/19/13 7:30:00Same as Lantus Solostar PEN"single patient use only" Stable for 28 days at room temperature.Expires in days from Date warfarin 2 mg, 1 tab, Route: PO, Drug form: 01/20/2013 01/20/2013 Completed TAB, Q5PM, Dosing Weight 79.545, kg, Start date: 01/20/13 17:00:00, Duration: 1 doses or times, Stop date: 01/20/13 17:00:00Nurse to ensure documentation of patient education per anticoagulation policy.Avoid large intake of vitamin-K containing foods diet.(Same As: Coumadin) warfarin 2.5 mg, 1 tab, Route: PO, Drug 01/19/2013 01/19/2013 Completed form: TAB, Q5PM, Dosing Weight 79.545, kg, Start date: 01/19/13 17:00:00, Duration: 1 doses or times, Stop date: 01/19/13 17:00:00Nurse to ensure documentation of patient education per anticoagulation policy.Avoid large intake of vitamin-K containing foods diet.(Same As: Coumadin) tamsulosin 0.4 mg, 1 cap, Route: PO, Drug 01/11/2013 01/21/2013 Discontinued form: CAP, After Dinner, Dosing Weight 79.545, kg, Start date: 01/11/13 17:00:00, Duration: 30 day, Stop date: 02/09/13 17:00:00(Same As: Flomax) "Do Not Crush" warfarin 2 mg, 1 tab, Route: PO, Drug form: 01/16/2013 01/16/2013 Completed TAB, Q5PM, Dosing Weight 79.545, kg, Start date: 01/16/13 17:00:00, Duration: 1 doses or times, Stop date: 01/16/13 17:00:00Nurse to ensure documentation of patient education per anticoagulation policy.Avoid large intake of vitamin-K containing foods diet.(Same As: Coumadin) Zofran 4 mg, Route: PO, Drug form: TAB, 01/13/2013 01/13/2013 Deleted ONCE, Dosing Weight 79.545, kg, Start date: 01/13/13 12:41:00, Stop date: 01/13/13 12:41:00 warfarin 1 mg, 1 tab, Route: PO, Drug form: 01/21/2013 01/21/2013 Completed TAB, Q5PM, Dosing Weight 79.545, kg, Start date: 01/21/13 17:00:00, Duration: 1 doses or times, Stop date: 01/21/13 17:00:00Nurse to ensure documentation of patient education per anticoagulation policy.Avoid large intake of vitamin-K containing foods diet.(Same As: Coumadin) Myoflex Creme 10% 1 appl, Route: TOP, TID, Drug form: 01/15/2013 01/21/2013 Discontinued topical CRM, PRN Pain, Start date: 01/15/13 17:32:00, Duration: 30 day, Stop date: 02/14/13 17:31:00Non-Formulary Drug. (Same As: Aspercreme, Myoflex, Mobisyl) propranolol 10 mg, 1 tab, Route: PO, Drug form: 01/11/2013 01/17/2013 Discontinued TAB, Q8H, Dosing Weight 79.545, kg, Start date: 01/11/13 8:00:00, Duration: 30 day, Stop date: 02/10/13 0:00:00Give with food.(Same as: Inderal) codeine 30 mg, 1 tab, Route: PO, Drug form: 01/11/2013 01/17/2013 Discontinued TAB, TID, Dosing Weight 79.545, kg, Start date: 01/11/13 8:00:00, Stop date: 02/09/13 17:00:00 pantoprazole 40 mg, 1 tab, Route: PO, Drug form: 01/11/2013 01/19/2013 Discontinued ECTAB, Before Dinner, Dosing Weight 79.545, kg, Start date: 01/11/13 16:30:00, Duration: 30 day, Stop date: 02/09/13 16:30:00Tablet should not be chewed or crushed.(Same as: Protonix) warfarin 2 mg, 1 tab, Route: PO, Drug form: 01/12/2013 01/12/2013 Completed TAB, ONCE, Dosing Weight 79.545, kg, Priority: NOW, Start date: 01/12/13 1:37:00, Stop date: 01/12/13 1:37:00Nurse to ensure documentation of patient education per anticoagulation policy.Avoid large intake of vitamin-K containing foods diet.(Same As: Coumadin) Insulin regular 10 unit, 0.1 mL, Route: SUB-Q, Drug 01/11/2013 01/17/2013 Discontinued form: SOLN, TID-Before Meals, Dosing Weight 79.545, kg, PRN Blood Glucose Results, Start date: 01/11/13 3:22:00, Duration: 30 day, Stop date: 02/10/13 3:21:00(Same as: Humulin R) Roll in palms of hands gently; Do not shake vigorously. "single patient use only"(Restricted to patients requiring a dose > 60 units) Stable for 28 days at room temperatureExpires in days from Date Insulin regular 2 unit, 0.02 mL, Route: SUB-Q, Drug 01/11/2013 01/17/2013 Discontinued form: SOLN, TID-Before Meals, Dosing Weight 79.545, kg, PRN Blood Glucose Results, Start date: 01/11/13 3:22:00, Duration: 30 day, Stop date: 02/10/13 3:21:00(Same as: Humulin R) Roll in palms of hands gently; Do not shake vigorously. "single patient use only"(Restricted to patients requiring a dose > 60 units) Stable for 28 days at room temperatureExpires in days from Date Insulin regular 4 unit, 0.04 mL, Route: SUB-Q, Drug 01/11/2013 01/17/2013 Discontinued form: SOLN, TID-Before Meals, Dosing Weight 79.545, kg, PRN Blood Glucose Results, Start date: 01/11/13 3:22:00, Duration: 30 day, Stop date: 02/10/13 3:21:00(Same as: Humulin R) Roll in palms of hands gently; Do not shake vigorously. "single patient use only"(Restricted to patients requiring a dose > 60 units) Stable for 28 days at room temperatureExpires in days from Date Insulin regular 6 unit, 0.06 mL, Route: SUB-Q, Drug 01/11/2013 01/17/2013 Discontinued form: SOLN, TID-Before Meals, Dosing Weight 79.545, kg, PRN Blood Glucose Results, Start date: 01/11/13 3:22:00, Duration: 30 day, Stop date: 02/10/13 3:21:00(Same as: Humulin R) Roll in palms of hands gently; Do not shake vigorously. "single patient use only"(Restricted to patients requiring a dose > 60 units) Stable for 28 days at room temperatureExpires in days from Date Insulin regular 8 unit, 0.08 mL, Route: SUB-Q, Drug 01/11/2013 01/17/2013 Discontinued form: SOLN, TID-Before Meals, Dosing Weight 79.545, kg, PRN Blood Glucose Results, Start date: 01/11/13 3:22:00, Duration: 30 day, Stop date: 02/10/13 3:21:00(Same as: Humulin R) Roll in palms of hands gently; Do not shake vigorously. "single patient use only"(Restricted to patients requiring a dose > 60 units) Stable for 28 days at room temperatureExpires in days from Date Saline Flush 0.9% 3 mL, Route: IVP, Drug Form: INJ, 01/11/2013 01/21/2013 Discontinued Dosing Weight 79.545, kg, Q8H, PRN Line Flush, Start date: 01/11/13 3:22:00, Duration: 30 day, Stop date: 02/10/13 3:21:00, Administer at least once every 8 hours Administer at least once every 8 hours(Same as: BD Posiflush) acetaminophen 650 mg, 2 tab, Route: PO, Drug 01/11/2013 01/21/2013 Discontinued form: TAB, Q4H, Dosing Weight 79.545, kg, PRN Pain Score 1-3, Start date: 01/11/13 3:22:00, Duration: 30 day, Stop date: 02/10/13 3:21:00Do not exceed 4 gm/day. (Same as: Tylenol) ondansetron 4 mg, 2 mL, Route: IVP, Drug form: 01/11/2013 01/13/2013 Discontinued INJ, Q8H, Dosing Weight 79.545, kg, PRN Nausea & Vomiting, Start date: 01/11/13 3:22:00, Duration: 30 day, Stop date: 02/10/13 3:21:00(Same as: Zofran) bisacodyl 10 mg, 1 supp, Route: VT, Drug 01/11/2013 01/21/2013 Discontinued form: SUPP, Bedtime, Dosing Weight 79.545, kg, PRN Constipation, Start date: 01/11/13 3:22:00, Duration: 30 day, Stop date: 02/10/13 3:21:00(Same As: Dulcolax, Bisco-Lax) docusate 100 mg, 1 cap, Route: PO, Drug 01/11/2013 01/21/2013 Discontinued form: CAP, BID, Dosing Weight 79.545, kg, Start date: 01/11/13 8:00:00, Duration: 30 day, Stop date: 02/09/13 20:00:00(Same as: Colace) (Do Not Crush) acetaminophen-hydroc 1 tab, Route: PO, Drug Form: TAB, 01/11/2013 01/21/2013 Discontinued odone 325 mg-5 mg Dosing Weight 79.545, kg, Q4H, PRN oral tablet Pain Score 1-3, Start date: 01/11/13 3:22:00, Duration: 30 day, Stop date: 02/10/13 3:21:00(Same as: [place] 325/5) Do not exceed 4gm/day of acetaminophen. celecoxib 200 mg, 2 cap, Route: PO, Drug 01/11/2013 01/20/2013 Discontinued form: CAP, BID, Dosing Weight 79.545, kg, Start date: 01/11/13 8:00:00, Duration: 30 day, Stop date: 02/09/13 20:00:00NSAID. Please check indication. Not for seizure. (Same As: Celebrex) Mag-Ox 400 800 mg, 2 tab, Route: PO, Drug 01/19/2013 01/21/2013 Discontinued form: TAB, TID, Start date: 01/19/13 8:00:00, Duration: 30 day, Stop date: 02/17/13 17:00:00(Same as: Mag-Ox 400)Magnesium oxide [id number] elemental magnesiumDose=____mg magnesium oxide (___mg elemental magnesium) warfarin 2 mg, 1 tab, Route: PO, Drug form: 01/14/2013 01/14/2013 Completed TAB, Q5PM, Dosing Weight 79.545, kg, Start date: 01/14/13 17:00:00, Duration: 1 doses or times, Stop date: 01/14/13 17:00:00Nurse to ensure documentation of patient education per anticoagulation policy.Avoid large intake of vitamin-K containing foods diet.(Same As: Coumadin) bacitracin topical 1 appl, Route: TOP, Q6H, Drug form: 01/11/2013 01/21/2013 Discontinued OINT, Start date: 01/11/13 6:00:00, Duration: 30 day, Stop date: 02/10/13 0:00:00 lidocaine topical 1 patch, TOP, Daily, 30 patch, 01/21/2013 02/20/2013 Ordered patch (5% film) Substitution Allowed, remove patchs after 12 hours remove patchs after 12 hours codeine 30 mg, 1 tab, Route: PO, Drug form: 01/17/2013 01/20/2013 Discontinued TAB, BID, Dosing Weight 79.545, kg, Start date: 01/17/13 20:00:00, Duration: 30 day, Stop date: 02/16/13 8:00:00 methocarbamol 500 mg, 1 tab, Route: PO, Drug 01/11/2013 01/20/2013 Discontinued form: TAB, Q8H, Dosing Weight 79.545, kg, Start date: 01/11/13 8:00:00, Duration: 30 day, Stop date: 02/10/13 0:00:00(Same as:Robaxin) insulin glargine 5 unit, 0.05 mL, Route: SUB-Q, Drug 01/17/2013 01/18/2013 Discontinued form: INJ, Bedtime, Dosing Weight 79.545, kg, Start date: 01/17/13 21:00:00, Duration: 30 day, Stop date: 02/15/13 21:00:00Same as Lantus Solostar PEN"single patient use only" Stable for 28 days at room temperature.Expires in days from Date propranolol 10 mg, 1 tab, Route: PO, Drug form: 01/17/2013 01/20/2013 Discontinued TAB, Q12H, Dosing Weight 79.545, kg, Start date: 01/17/13 21:00:00, Duration: 30 day, Stop date: 02/16/13 9:00:00Give with food.(Same as: Inderal) metFORmin 500 mg 500 mg, 1 tab, Route: PO, Drug 01/11/2013 01/17/2013 Discontinued oral tablet form: TAB, BID, Dosing Weight 79.545, kg, Start date: 01/11/13 8:00:00, Duration: 30 day, Stop date: 02/09/13 20:00:00(Same as: Glucophage) Take with meal Mag-Ox 400 400 mg, 1 tab, Route: PO, Drug 01/14/2013 01/18/2013 Discontinued form: TAB, TID, Start date: 01/14/13 17:00:00, Duration: 30 day, Stop date: 02/13/13 13:00:00(Same as: Mag-Ox 400)Dose=____mg magnesium oxide (___mg elemental magnesium) magnesium gluconate 1,000 mg, 2 tab, Route: PO, Drug 01/11/2013 01/14/2013 Discontinued form: TAB, TID, Dosing Weight 79.545, kg, Start date: 01/11/13 8:00:00, Duration: 30 day, Stop date: 02/09/13 17:00:00(Same as: Almora)Magnesium gluconate 500mg=27mg elemental magnesium Dose= mg magnesium gluconate(___mg elemental magnesium) loperamide 2 mg, 1 cap, Route: PO, Drug form: 01/11/2013 01/14/2013 Discontinued CAP, Q4H, Dosing Weight 79.545, kg, Start date: 01/11/13 4:00:00, Duration: 30 day, Stop date: 02/10/13 0:00:00(Same as: Imodium) MAX adult dose is 8 caps/day warfarin 2 mg, 1 tab, Route: PO, Drug form: 01/17/2013 01/17/2013 Completed TAB, Q5PM, Dosing Weight 79.545, kg, Start date: 01/17/13 17:00:00, Duration: 1 doses or times, Stop date: 01/17/13 17:00:00(Same As: Coumadin) insulin glargine 15 unit, 0.15 mL, Route: SUB-Q, 01/11/2013 01/17/2013 Discontinued Drug form: INJ, Bedtime, Dosing Weight 79.545, kg, Start date: 01/11/13 21:00:00, Duration: 30 day, Stop date: 02/09/13 21:00:00Same as Lantus Solostar PEN"single patient use only" Stable for 28 days at room temperature.Expires in days from Date insulin glargine 10 unit, 0.1 mL, Route: SUB-Q, Drug 01/21/2013 01/20/2013 Deleted form: INJ, Before Breakfast, Dosing Weight 79.545, kg, Start date: 01/21/13 7:30:00, Duration: 30 day, Stop date: 02/19/13 7:30:00Same as Lantus Solostar PEN"single patient use only" Stable for 28 days at room temperature.Expires in days from Date magnesium oxide 400 800 mg, 2 tab, PO, TID, 180 tab, 01/20/2013 02/19/2013 Ordered mg oral tablet Substitution Allowed, TAB tramadol 50 mg oral 50 mg, 1 tab, Route: PO, Drug form: 01/20/2013 01/21/2013 Discontinued tablet TAB, Q8H, Dosing Weight 79.545, kg, Start date: 01/20/13 16:00:00, Duration: 30 day, Stop date: 02/19/13 8:00:00(Same As: Ultram) warfarin 2 mg oral 2 mg, 1 tab, PO, Q5PM, 20 tab, 01/20/2013 Ordered tablet Substitution Allowed, TAB [place] 10/325 oral 1 tab, Route: PO, Drug Form: TAB, 01/19/2013 01/21/2013 Discontinued tablet Dosing Weight 79.545, kg, Q8H, Start date: 01/19/13 16:00:00, Duration: 30 day, Stop date: 02/18/13 8:00:00Do not exceed 4gm/day of acetaminophen. (Same as: [place] 325/10) docusate sodium 100 100 mg, 1 cap, PO, BID, 60 cap, 01/20/2013 Ordered mg oral capsule Substitution Allowed, CAP warfarin 2 mg, 1 tab, Route: PO, Drug form: 01/13/2013 01/13/2013 Completed TAB, Q5PM, Dosing Weight 79.545, kg, Start date: 01/13/13 17:00:00, Duration: 1 doses or times, Stop date: 01/13/13 17:00:00Nurse to ensure documentation of patient education per anticoagulation policy.Avoid large intake of vitamin-K containing foods diet.(Same As: Coumadin) bisacodyl 10 mg 10 mg, 1 supp, VT, Bedtime, PRN, 30 01/20/2013 Ordered rectal suppository supp, Constipation, Substitution Allowed, SUPP bacitracin topical 1 appl, TOP, Q6H, 1 tube, 01/20/2013 Ordered 500 units/g ointment Substitution Allowed, OINT acetaminophen 325 mg 650 mg, 2 tab, PO, Q4H, PRN, 60 01/20/2013 Ordered oral tablet tab, Pain Score 1-3, Substitution Allowed, TAB tramadol 50 mg oral 50 mg, 1 tab, Route: PO, Drug form: 01/11/2013 01/20/2013 Discontinued tablet TAB, Q6H, Dosing Weight 79.545, kg, Start date: 01/11/13 6:00:00, Duration: 30 day, Stop date: 02/10/13 0:00:00Not to exceed 400mg/day. (Same As: Ultram) insulin aspart 1 unit, 0.01 mL, Route: SUB-Q, Drug 01/19/2013 01/21/2013 Discontinued form: SOLN, TID-Before Meals, Dosing Weight 79.545, kg, PRN Blood Glucose Results, Start date: 01/19/13 15:00:00, Duration: 30 day, Stop date: 02/18/13 14:59:00Roll in palms of hands gently; Do not shake vigorously. (Same as: NovoLog)"single patient use only" Stable for 28 days at room temperature.Expires in days from Date insulin aspart 5 unit, 0.05 mL, Route: SUB-Q, Drug 01/19/2013 01/21/2013 Discontinued form: SOLN, TID-Before Meals, Dosing Weight 79.545, kg, PRN Blood Glucose Results, Start date: 01/19/13 15:00:00, Duration: 30 day, Stop date: 02/18/13 14:59:00Roll in palms of hands gently; Do not shake vigorously. (Same as: NovoLog)"single patient use only" Stable for 28 days at room temperature.Expires in days from Date insulin aspart 4 unit, 0.04 mL, Route: SUB-Q, Drug 01/19/2013 01/21/2013 Discontinued form: SOLN, TID-Before Meals, Dosing Weight 79.545, kg, PRN Blood Glucose Results, Start date: 01/19/13 15:00:00, Duration: 30 day, Stop date: 02/18/13 14:59:00Roll in palms of hands gently; Do not shake vigorously. (Same as: NovoLog)"single patient use only" Stable for 28 days at room temperature.Expires in days from Date insulin aspart 3 unit, 0.03 mL, Route: SUB-Q, Drug 01/19/2013 01/21/2013 Discontinued form: SOLN, TID-Before Meals, Dosing Weight 79.545, kg, PRN Blood Glucose Results, Start date: 01/19/13 15:00:00, Duration: 30 day, Stop date: 02/18/13 14:59:00Roll in palms of hands gently; Do not shake vigorously. (Same as: NovoLog)"single patient use only" Stable for 28 days at room temperature.Expires in days from Date insulin aspart 2 unit, 0.02 mL, Route: SUB-Q, Drug 01/19/2013 01/21/2013 Discontinued form: SOLN, TID-Before Meals, Dosing Weight 79.545, kg, PRN Blood Glucose Results, Start date: 01/19/13 15:00:00, Duration: 30 day, Stop date: 02/18/13 14:59:00Roll in palms of hands gently; Do not shake vigorously. (Same as: NovoLog)"single patient use only" Stable for 28 days at room temperature.Expires in days from Date glucagon 1 mg, Route: IM, Drug form: 01/19/2013 01/21/2013 Discontinued PDR/INJ, PRN, Dosing Weight 79.545, kg, PRN Blood Glucose Results, Start date: 01/19/13 15:00:00, Duration: 30 day, Stop date: 02/18/13 14:59:00 Dextrose 50% Syringe 25 gm, 50 mL, Route: IVP, Drug 01/19/2013 01/21/2013 Discontinued Form: INJ, Dosing Weight 79.545, kg, PRN, PRN Blood Glucose Results, Start date: 01/19/13 15:00:00, Duration: 30 day, Stop date: 02/18/13 14:59:00 Dextrose 50% Syringe 12.5 gm, 25 mL, Route: IVP, Drug 01/19/2013 01/21/2013 Discontinued Form: INJ, Dosing Weight 79.545, kg, PRN, PRN Blood Glucose Results, Start date: 01/19/13 15:00:00, Duration: 30 day, Stop date: 02/18/13 14:59:00 tramadol 50 mg oral 50 mg, 1 tab, PO, Q8H, 60 tab, 01/20/2013 Ordered tablet Substitution Allowed, TAB tamsulosin 0.4 mg 0.4 mg, 1 cap, PO, After Dinner, 30 01/20/2013 Ordered oral capsule cap, Substitution Allowed, CAP methocarbamol 500 mg 500 mg, 1 tab, PO, Q12H, 60 tab, 01/20/2013 Ordered oral tablet Substitution Allowed, TAB Glucophage 1000 mg 1,000 mg, 1 tab, PO, Q12H, 60 tab, 01/20/2013 Ordered oral tablet Substitution Allowed, TAB Zofran 4 mg, 1 tab, Route: PO, Drug form: 01/13/2013 01/13/2013 Completed TAB, ONCE, Dosing Weight 79.545, kg, Start date: 01/13/13 12:20:00, Stop date: 01/13/13 12:20:00(Same as: Zofran) warfarin 2.5 mg, 1 tab, Route: PO, Drug 01/15/2013 01/15/2013 Completed form: TAB, Q5PM, Dosing Weight 79.545, kg, Start date: 01/15/13 17:00:00, Duration: 1 doses or times, Stop date: 01/15/13 17:00:00Nurse to ensure documentation of patient education per anticoagulation policy.Avoid large intake of vitamin-K containing foods diet.(Same As: Coumadin) metFORmin 500 mg 1,000 mg, 1 tab, Route: PO, Drug 01/19/2013 01/21/2013 Discontinued oral tablet form: TAB, Q12H, Dosing Weight 79.545, kg, Start date: 01/19/13 21:00:00, Duration: 30 day, Stop date: 02/18/13 9:00:00Same as Glucophage warfarin 2.5 mg, 1 tab, Route: PO, Drug 01/12/2013 01/12/2013 Completed form: TAB, Q5PM, Dosing Weight 79.545, kg, Start date: 01/12/13 17:00:00, Duration: 1 doses or times, Stop date: 01/12/13 17:00:00 atropine-diphenoxyla 2 tab, Route: PO, Drug Form: TAB, 01/11/2013 01/20/2013 Discontinued te 0.025 mg-2.5 mg Dosing Weight 79.545, kg, Q6H, oral tablet Start date: 01/11/13 6:00:00, Duration: 30 day, Stop date: 02/10/13 0:00:00(Same As: Lomotil) MAX Adult dose=8 tabs/day glipiZIDE 5 mg oral 5 mg, 1 tab, PO, Before Breakfast, 01/20/2013 Ordered tablet 30 tab, Substitution Allowed, TAB methocarbamol 500 mg, 1 tab, Route: PO, Drug 01/20/2013 01/21/2013 Discontinued form: TAB, Q12H, Dosing Weight 79.545, kg, Start date: 01/20/13 21:00:00, Duration: 30 day, Stop date: 02/19/13 9:00:00(Same as:Robaxin) insulin glargine 15 unit, 0.15 mL, Route: SUB-Q, 01/20/2013 01/20/2013 Discontinued Drug form: SOLN, Before Breakfast, Dosing Weight 79.545, kg, Start date: 01/20/13 7:30:00, Duration: 30 day, Stop date: 02/18/13 7:30:00Do not give IV or mix with other insulins or solutions. Give once a day SC. (Same as: Lantus) Long-acting hum rec insulin analog. Do not confuse w/regular Lente. Immunizations Vaccine Date Status influenza virus vaccine, inactivated 11/16/2012 Auth (Verified) pneumococcal 23-valent vaccine 11/16/2012 Auth (Verified) Vital Signs Most recent to oldest [Reference Range]: 1 2 3 Height 111.8 cm (01/11/2013 03:06:00) Temperature Oral [96.4-99.1 DegF] 98.5 DegF (01/21/2013 16:00:00) 98.9 DegF (01/21/2013 04:00:00) 97.6 DegF (01/20/2013 20:00:00) Systolic Blood Pressure [90-140 mmHg] 120 mmHg (01/21/2013 16:00:00) 113 mmHg (01/21/2013 04:00:00) 115 mmHg (01/20/2013 20:00:00) Diastolic Blood Pressure [60-90 mmHg] 79 mmHg (01/21/2013 16:00:00) 74 mmHg (01/21/2013 04:00:00) 72 mmHg (01/20/2013 20:00:00) Respiratory Rate [14-20 BRMIN] 18 BRMIN (01/21/2013 16:00:00) 18 BRMIN (01/21/2013 04:00:00) 18 BRMIN (01/20/2013 20:00:00) Peripheral Pulse Rate [60-100 bpm] 100 bpm (01/21/2013 16:00:00) 100 bpm (01/21/2013 04:00:00) 98 bpm (01/20/2013 20:00:00) Weight 79.545 kg (01/11/2013 03:06:00) Results BEDSIDE GLUCOSE TESTING Most recent to oldest [Reference Range]: 1 2 3 Glucose POC [70-99 mg/dL] 173 mg/dL 1 *HI* (01/21/2013 12:17:00) 153 mg/dL 2 *HI* (01/21/2013 07:13:00) 125 mg/dL 3 *HI* (01/20/2013 20:31:00) Gluc POC Comment 1 Notify RN/MD *NA* (01/21/2013 12:17:00) Notify RN/MD *NA* (01/21/2013 07:13:00) Notify RN/MD *NA* (01/20/2013 20:31:00) Gluc POC Comment 2 Sliding Scale *NA* (01/20/2013 20:31:00) Sliding Scale *NA* (01/19/2013 21:04:00) 1Interpretive Data: Upper Reportable Limit: 200 mg/dL. 2Interpretive Data: Upper Reportable Limit: 200 mg/dL. 3Interpretive Data: Upper Reportable Limit: 200 mg/dL. URINALYSIS Most recent to oldest [Reference Range]: 1 2 3 UA Turbidity [Clear] Clear (01/12/2013 07:31:32) UA Color [Yellow] Yellow *NA* (01/12/2013 07:31:32) UA pH [5.0-8.0] 5.5 (01/12/2013 07:31:32) UA Spec Grav [<=1.030] 1.017 (01/12/2013 07:31:32) UA Glucose [Negative mg/dL] Negative mg/dL *NA* (01/12/2013 07:31:32) UA Blood [Negative] Negative (01/12/2013 07:31:32) UA Ketones [Negative mg/dL] Negative mg/dL *NA* (01/12/2013 07:31:32) UA Protein [Negative mg/dL] 10 mg/dL *ABN* (01/12/2013 07:31:32) UA Urobilinogen [0.1-1.0 mg/dL] <=1.0 mg/dL *NA* (01/12/2013 07:31:32) UA Bili [Negative] Negative *NA* (01/12/2013 07:31:32) UA Leuk Est [Negative] Negative (01/12/2013 07:31:32) UA Nitrite [Negative] Negative (01/12/2013 07:31:32) UA WBC [0-5 /HPF] 1 /HPF (01/12/2013 07:31:32) UA RBC [0-2 /HPF] 1 /HPF (01/12/2013 07:31:32) UA Bacteria [None Seen /HPF] Occasional /HPF *NA* (01/12/2013 07:31:32) UA Sq Epi None Seen *NA* (01/12/2013 07:31:32) UA Hyal Cast [0-2 /LPF] 3 /LPF *HI* (01/12/2013 07:31:32) UA CaOx Huma [None Seen /HPF] Occasional /HPF *NA* (01/12/2013 07:31:32) UA Mucus [None Seen /LPF] Few /LPF *NA* (01/12/2013 07:31:32) CHEMISTRY Most recent to oldest [Reference Range]: 1 2 3 Sodium Lvl [135-145 mEq/L] 135 mEq/L (01/12/2013 06:00:52) Potassium Lvl [3.5-5.1 mEq/L] 4.4 mEq/L (01/12/2013 06:00:52) Chloride Lvl [95-109 mEq/L] 100 mEq/L (01/12/2013 06:00:52) CO2 [24-32 mEq/L] 24 mEq/L (01/12/2013 06:00:52) AGAP [10.0-20.0 mEq/L] 15.4 mEq/L (01/12/2013 06:00:52) Creatinine Lvl [0.5-1.4 mg/dL] 0.5 mg/dL (01/12/2013 06:00:52) eGFR 137 mL/min/1.73m2 4 *NA* (01/12/2013 06:00:52) BUN [7-22 mg/dL] 14 mg/dL (01/12/2013 06:00:52) B/C Ratio [6-25] 28 *HI* (01/12/2013 06:00:52) Glucose Lvl [70-99 mg/dL] 114 mg/dL 5 *HI* (01/12/2013 06:00:52) Total Protein [6.4-8.4 g/dL] 7.3 g/dL (01/12/2013 06:00:52) Albumin Lvl [3.5-5.0 g/dL] 3.0 g/dL *LOW* (01/12/2013 06:00:52) 3.0 g/dL *LOW* (01/12/2013 06:00:52) Globulin [2.0-4.0 g/dL] 4.3 g/dL *HI* (01/12/2013 06:00:52) A/G Ratio [0.7-1.6] 0.7 (01/12/2013 06:00:52) Calcium Lvl [8.5-10.5 mg/dL] 9.0 mg/dL (01/12/2013 06:00:52) Magnesium Lvl [1.8-2.4 mg/dL] 1.6 mg/dL *LOW* (01/21/2013 05:53:00) 1.5 mg/dL *LOW* (01/18/2013 06:15:00) 1.3 mg/dL *LOW* (01/12/2013 06:00:52) ALT [0-65 unit/L] 60 unit/L (01/12/2013 06:00:52) AST [0-37 unit/L] 25 unit/L (01/12/2013 06:00:52) Alk Phos [39-136 unit/L] 431 unit/L *HI* (01/12/2013 06:00:52) Bili Total [0.2-1.3 mg/dL] 0.5 mg/dL (01/12/2013 06:00:52) Hgb A1C [<=5.6 %] 4.5 % (01/12/2013 06:00:52) T4 Free [0.76-1.46 ng/dL] 1.14 ng/dL (01/12/2013:00:52) TSH [0.360-3.740 uIU/mL] 1.050 uIU/mL (01/12/2013:00:52) 4Result Comment: The eGFR is calculated using the [...] be mul tiplied by the estimated BMI. 5Interpretive Data: Adult reference range values reflect the clinical guidelines of the [place] [employer]. HEMATOLOGY Most recent to oldest [Reference Range]: 1 2 3 WBC [3.7-10.4 K/CMM] 7.8 K/CMM (01/12/2013:00:52) RBC [4.70-6.10 M/CMM] 3.88 M/CMM *LOW* (01/12/2013:00:52) Hgb [14.0-18.0 g/dL] 10.5 g/dL *LOW* (01/12/2013:00:) Hct [42.0-54.0 %] 31.6 % *LOW* (01/12/2013:00:52) MCV [80.0-94.0 fL] 81.4 fL (01/12/2013:00:52) MCH [27.0-31.0 pg] 27.1 pg (01/12/2013::52) MCHC [32.0-36.0 g/dL] 33.2 g/dL (01/12/2013:00:52) RDW [11.5-14.5 %] 15.4 % *HI* (01/12/2013:00:52) Platelet [133-450 K/CMM] 317 K/CMM (01/12/2013 06:00:52) MPV [7.4-10.4 fL] 6.8 fL *LOW* (01/12/2013 06:00:52) Segs [45.0-75.0 %] 62.4 % (01/12/2013 06:00:52) Lymphocytes [20.0-40.0 %] 25.9 % (01/12/2013 06:00:52) Monocytes [2.0-12.0 %] 9.7 % (01/12/2013 06:00:52) Eosinophils [0.0-4.0 %] 1.8 % (01/12/2013 06:00:52) Basophils [0.0-1.0 %] 0.2 % (01/12/2013 06:00:52) Segs-Bands # [1.5-8.1 K/CMM] 4.9 K/CMM (01/12/2013 06:00:52) Lymphocytes # [1.0-5.5 K/CMM] 2.0 K/CMM (01/12/2013 06:00:52) Monocytes # [0.0-0.8 K/CMM] 0.8 K/CMM (01/12/2013 06:00:52) Eosinophils # [0.0-0.5 K/CMM] 0.1 K/CMM (01/12/2013 06:00:52) PT [12.0-14.7 seconds] 33.2 seconds *HI* (01/21/2013 05:53:00) 28.8 seconds *HI* (01/20/2013 05:49:34) 24.8 seconds *HI* (01/19/2013 06:42:27) INR [0.85-1.17] 3.35 6 *HI* (01/21/2013 05:53:00) 2.78 7 *HI* (01/20/2013 05:49:34) 2.29 8 *HI* (01/19/2013 06:42:27) PTT [22.9-35.8 seconds] 47.3 seconds 9 *HI* (01/13/2013 07:45:14) 6Interpretive Data: RECOMMENDED RANGES FOR PROTIME INR: 2.0-3.0 for most medical and surgical thromboembolic states. 2.5-3.5 for artificial heart valves and recurrent embolism. INR SHOULD BE USED ONLY FOR PATIENTS ON STABLE ANTICOAGULANT THERAPY. 7Interpretive Data: RECOMMENDED RANGES FOR PROTIME INR: 2.0-3.0 for most medical and surgical thromboembolic states. 2.5-3.5 for artificial heart valves and recurrent embolism. INR SHOULD BE USED ONLY FOR PATIENTS ON STABLE ANTICOAGULANT THERAPY. 8Interpretive Data: RECOMMENDED RANGES FOR PROTIME INR: 2.0-3.0 for most medical and surgical thromboembolic states. 2.5-3.5 for artificial heart valves and recurrent embolism. INR SHOULD BE USED ONLY FOR PATIENTS ON STABLE ANTICOAGULANT THERAPY. 9Interpretive Data: Heparin Therapeutic Range: 57 - 92 Seconds IMMUNOLOGY Most recent to oldest [Reference Range]: 1 2 3 Prealbumin [18.0-45.0 mg/dL] 36.9 mg/dL (01/12/2013 06:00:52)
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
--- OUTSIDE RECORDS SUMMARY | 2018-09-05 12:50 | XMS REPORT | Summary of Care ---
Author Organization Unknown Address Unknown Phone Unavailable Encounter HQ Jennifer(FIN) [id number] Date(s): 09/18/13 - 10/17/[address] Discharge Disposition: Home Physician Attending: Keyona Starks MD Reason for Visit SCI Problem List Condition Effective Dates Status Health [...]
--- OUTSIDE RECORDS SUMMARY | 2018-09-05 12:51 | XMS REPORT | Summary of Care ---
Author Organization Unknown Address Unknown Phone Unavailable Encounter MAHSA Rodriguez(EMMA) [id number] Date(s): 06/16/14 - 06/16/[address] Final: Below knee amputation status Final: Gait abnormality Final: Pain in Limb Final: Amputation stump complication NOS Discharge Disposition: Home Physician Attending: Keyona Starks MD Physician_Referring: Keyona Starks MD Vital Signs Most recent to 1 oldest [Reference Range]: Height 170.18 cm (06/16/14 2:19 PM) Blood Pressure 123/82 mmHg [90-140/60-90 mmHg] (06/16/14 2:19 PM) Respiratory Rate 20 BRMIN [14-20 BRMIN] (06/16/14 2:19 PM) Peripheral Pulse 93 bpm Rate [60-100 bpm] (06/16/14 2:19 PM) Weight 65 kg (06/16/14 2:19 PM) Body Mass Index 22.44 m2 (06/16/14 2:19 PM) Problem List Condition Effective Dates Status Health [...] Substance Reaction Severity Status NKDA Active Medications atropine-diphenoxylate 0.025 mg-2.5 mg oral tablet 2 tab, PO, Q12H, PRN for loose stool, # 60 tab, 0 Refill(s) Start Date: 06/16/14 Status: Ordered diphenoxylate =2 tab, Q12H, 0 Refill(s) Start Date: 06/16/14 Stop Date: 06/16/14 Status: Discontinued diphenoxylate 0 Refill(s) Start Date: 06/16/14 Stop Date: 06/16/14 Status: Discontinued glipiZIDE 10 mg oral tablet 10 mg=1 tab, PO, BID, # 30 tab, 0 Refill(s) Start Date: 06/16/14 Status: Ordered loperamide 2 mg oral capsule 2 mg=1 cap, PO, Q12H, PRN loose stools, # 60 cap, 0 Refill(s) Start Date: 06/16/14 Stop Date: 06/26/14 Status: Ordered meclizine 25 mg oral tablet 25 mg=1 tab, PO, Q4H, PRN Nausea & Vomiting, # 30 tab, 0 Refill(s) Start Date: 06/16/14 Stop Date: 06/26/14 Status: Ordered [place] 10/325 oral tablet 1 tab, PO, Q6H, PRN for pain, # 90 tab, 0 Refill(s), given to patient Start Date: 06/16/14 Stop Date: 06/22/14 Status: Ordered [place] 5/325 oral tablet 1 tab, PO, Q4H, PRN for pain, 0 Refill(s) Start Date: 06/16/14 Stop Date: 06/16/14 Status: Discontinued Results No data available for this section [...]
--- OUTSIDE RECORDS SUMMARY | 2018-09-05 12:51 | XMS REPORT | Summary of Care ---
Author Organization Unknown Address Unknown Phone Unavailable Encounter MAHSA Rodriguez(EMMA) [id number] Date(s): 08/12/14 - 08/12/[address] Final: Pain in Limb Final: Gait abnormality Final: Amputation stump complication NOS Final: Below knee amputation status Discharge Disposition: Home Physician Attending: Keyona Starks MD Physician_Referring: Keyona Starks MD Vital Signs Most recent to 1 oldest [Reference Range]: Height 170.18 cm (08/12/14 10:36 AM) Temperature Oral 97.9 DegF [96.4-99.1 DegF] (08/12/14 10:36 AM) Blood Pressure 115/74 mmHg [90-140/60-90 mmHg] (08/12/14 10:36 AM) Respiratory Rate 18 BRMIN [14-20 BRMIN] (08/12/14 10:36 AM) Peripheral Pulse 80 bpm Rate [60-100 bpm] (08/12/14 10:36 AM) Weight 64.091 kg (08/12/14 10:36 AM) Body Mass Index 22.13 m2 (08/12/14 10:36 AM) Problem List Condition Effective Dates Status [...] Substance Reaction Severity Status NKDA Active Medications minocycline 100 mg oral capsule 100 mg=1 cap, PO, BID, 0 Refill(s) Start Date: 08/12/14 Status: Ordered Results No data available for [...]
--- OUTSIDE RECORDS SUMMARY | 2018-09-05 12:51 | XMS REPORT | Summary of Care ---
Author Author [facility] Organization [facility] Address Unknown Phone Unavailable Encounter MAHSA Rodriguez(EMMA) [id number] Date(s): 06/04/16 - 06/04/16 [facility] [address], [place], [place] [address]- [phone] Discharge Diagnosis: Cellulitis of right knee Discharge Disposition: Home or Self Care Attending Physician: Jason García DO Vital Signs Most recent to 1 2 oldest [Reference Range]: Height 170.18 cm (06/04/16 4:43 PM) Temperature Oral 98.2 DegF [96.4-99.1 DegF] (06/04/16 4:43 PM) Blood Pressure 131/78 mmHg 141/79 mmHg [90-140/60-90 mmHg] (06/04/16 5:46 PM) *HI* (06/04/16 4:43 PM) Respiratory Rate 16 BRMIN 20 BRMIN [14-20 BRMIN] (06/04/16 5:46 PM) (06/04/16 4:43 PM) Peripheral Pulse 104 bpm 118 bpm Rate [60-100 bpm] *HI* *HI* (06/04/16 5:46 PM) (06/04/16 4:43 PM) Weight 65 kg (06/04/16 4:43 PM) Body Mass Index 22.44 m2 (06/04/16 4:43 PM) Problem List Condition Effective Dates Status [...] Substance Reaction Severity Status NKDA Active Medications Bactrim DS 800 mg- 160 mg oral tablet 1 tab, PO, BID, X 7 day, # 14 tab, 0 Refill(s) Start Date: 06/04/16 Stop Date: 06/11/16 Status: Ordered Keflex 500 mg oral capsule 500 mg=1 cap, PO, QID, X 7 day, # 28 cap, 0 Refill(s) Start Date: 06/04/16 Stop Date: 06/11/16 Status: Ordered Tylenol 650 mg, 2 tab, Route: PO, Drug form: TAB, ONCE, Dosing Weight 65, kg, Priority: STAT, Start date: 06/04/16 17:04:00 CDT, Stop date: 06/04/16 17:04:00 CDT Notes: Do not exceed 4 gm/day. (Same as: Tylenol) Start Date: 06/04/16 Stop Date: 06/04/16 Status: Completed Results No data available for this section Immunizations Given and Recorded Vaccine Date Status Refusal Reason influenza virus vaccine, inactivated 11/16/12 Given pneumococcal 23-valent vaccine 11/16/12 Given Procedures Procedure Date Related Diagnosis Body Site [...]
--- OUTSIDE RECORDS SUMMARY | 2018-09-05 12:51 | XMS REPORT | Summary of Care ---
Author Organization Unknown Address Unknown Phone Unavailable Encounter [facility] Encntr_jeff(FIN) [id number] Date(s): 07/06/14 - 08/04/14 [facility] [address] [place] [address]- Discharge Disposition: Home Physician Attending: Keyona Starks MD Physician Admitting: Keyona Starks MD Physician_Referring: Keyona Starks MD Vital Signs No data available for this section Problem List Condition Effective Dates Status Health [...] Medications No data available for this section Results No data available for this section [...]
--- OUTSIDE RECORDS SUMMARY | 2018-09-05 12:51 | XMS REPORT | Summary of Care ---
Author Organization Unknown Address Unknown Phone Unavailable Encounter MAHSA Rodriguez(EMMA) [id number] Date(s): 07/14/14 - 07/14/[address] [phone] Final: Gait abnormality Final: Below knee amputation status Final: Pain in Limb Final: Amputation stump complication NOS Discharge Disposition: Home Physician Attending: Keyona Starks MD Physician_Referring: Keyona Starks MD Vital Signs Most recent to 1 oldest [Reference Range]: Height 170.18 cm (07/14/14 11:16 AM) Blood Pressure 119/75 mmHg [90-140/60-90 mmHg] (07/14/14 11:16 AM) Respiratory Rate 18 BRMIN [14-20 BRMIN] (07/14/14 11:16 AM) Peripheral Pulse 99 bpm Rate [60-100 bpm] (07/14/14 11:16 AM) Weight 61.818 kg (07/14/14 11:16 AM) Body Mass Index 21.35 m2 (07/14/14 11:16 AM) Problem List Condition Effective Dates Status [...]
--- OUTSIDE RECORDS SUMMARY | 2018-09-05 12:52 | XMS REPORT ---
[facility] Address Unknown Phone Unavailable Care Team Providers Care Post Doctoral Researcher Name Role Phone PATEL DIMAS Unavailable Unavailable Payers Payer Name Policy Type Policy Number Effective Date Expiration Date Problems This patient has no known problems. Allergies, Adverse Reactions, Alerts Allergy Name Allergy Type Status Severity Reaction(s) Onset Date Inactive Date Treating Clinician Comments No Known Allergies DA Active U 2017-05-04 00:00:00 Medications This patient has no known medications. Encounters Start Date/Time End Date/Time Encounter Type Admission Type Attending Clinicians Care Facility Care Department Encounter ID 2017-03-31 00:00:00 2017-04-01 00:00:00 [facility] [id number] Results Test Description Test Time Test Comments Text Results Atomic Results Result Comments [address] (KU) 2018-07-29 16:29:00 [place] [address] Patient Name: LINSEY BEE MR #: [id number] : 1975 Age/Sex: 42/M Req #: [id number] Adm Physician: Ordered by: PATEL DIMAS MD Report #: [id number] Location: [facility] Room/Bed: Procedure: [id number] DX/ABDOMEN-1VIEW (KUB) Exam Date: 07/29/18 Exam Time: 1559 REPORT STATUS: Signed Abdomen, 2 views. History: Renal calculus. Co mparison: KUB 07/12/2018. Findings: Bilateral internal ureteral stents are in unchanged position. No definite stone overlying the kidneys or expected course of the ureters. A 1.7 cm hyperdensity likely represents bone which is discontinuous with the left L3 transverse process. Nonobstructive bowel gas pattern. Pelvic bony hardware with screws traversing the iliac bones and sacrum as well as a plate and screw construct of the superior pubic rami are present. IMPRESSION: Bilateral internal ureteral stents. No definite renal or ureteral stone. Signed by: Dr. Riaz Gannon MD on 07/29/2018 4:34 PM Dictated By: RIAZ GANNON MD 1639 Transcribed By: ELÍAS on 07/29/18 1631 COPY TO: PATEL DIMAS MD ABDOMEN-1VIEW (KUB) 2018-07-12 14:40:00 [place] [address] Patient Name: LINSEY BEE MR #: [id number] : 1975 Age/Sex: 42/M Req #: [id number] Adm Physician: Ordered by: PATEL DIMAS MD Report #: [id number] Location: [facility] Room/Bed: Procedure: [id number] DX/ABDOMEN-1VIEW (KUB) Exam Date: 07/12/18 Exam Time: 1215 REPORT STATUS: Signed Abdomen, 2 views. History: Stones. Findings: The intestinal gas pattern is nonobstructive. Evidence of pelvic reconstruction with screws traversing the iliac bones and sacrum. Plate and screw construct of the superior pubic rami also present. There are bilateral double-J ureteral stents in appropriate position. There are no stones along the course of the stents. There no masses or abnormal calcifications. IMPRESSION: 1. No acute abdominal abnormality. 2. No definite calcified renal or ureteral stones identified. Signed by: Dr. Stone Child DO on 07/12/2018 2:43 PM Dictated By: STONE CHILD DO 1443 Transcribed By: EÍLAS on 07/12/18 1443 COPY TO: PATEL DIMAS MD - CT ABD PELVIS W WO CONT 2018-07-02 01:37:00 Name: LINSEY BEE [facility] : 1975 Age/S: 42 / M [address] [facility] Unit #: [id number] Loc: [place] [address] Phys: Clovis Corbin [employer] Acct: [id number] Dis Date: Status: REG ER PHONE #: [phone] Exam Date: 07/02/2018 0111 FAX #: [phone] Reason: LOWER ABD/PELVIC PAIN EXAMS: CPT CODE: [id number] CT ABD PELVIS W WO CONT [id number] EXAM: - CT ABD PELVIS W WO CONT HISTORY: Abdominal pain. TECHNIQUE: Axial tomograms through the abdomen and pelvis were obtained after intravenous contrast. Coronal and sagittal reformatted images are provided. This exam was performed according to our departmental dose-optimization program, which includes automated exposure control, adjustment of the mA and/or kV according to patient size and/or use of iterative reconstruction technique. COMPARISON: March 30, 2018. FINDINGS: The visualized lung bases are clear. The gallbladder is contracted. Small gallstones are present as seen before. The liver, spleen, pancreas, adrenal glands and abdominal aorta demonstrate no significant abnormalities. There is no free air or fluid collection. Chronic bilateral hydroureteronephrosis, right more than left. Bilateral ureteric stents are present. There is minimal decreased hydronephrosis compared to previous exam. Proximal end of the right stent is in extrarenal pelvis. Left stent is in mid kidney. There is stranding of fat around the proximal ureters/UPJ. This could be due to distal obstruction or inflammation. Colostomy in right lower quadrant. The bowel is not distended. Postsurgical changes and metallic hardware in pelvis. There is no adenopathy or free fluid. IMPRESSION: Chronic bilateral hydronephrosis right more than left. Bilateral ureteral stents are present. Other findings as mentioned above. PAGE 1 Signed Report (CONTINUED) Name: LINSEY BEE [facility] : 1975 Age/S: 42 / M [address] [facility] Unit #: [id number] Loc: [place] [address] Phys: Clovis Corbin [employer] Acct: [id number] Dis Date: Status: REG ER PHONE #: [phone] Exam Date: 07/02/2018 011 FAX #: [phone] Reason: LOWER ABD/PELVIC PAIN EXAMS: CPT CODE: [id number] CT ABD PELVIS W WO CONT [id number] <Continued> at 0137 Reported and signed by: Davy Chase MD CC: Clovis Corbin Technologist:ASHLEIGH MURRIETA CTDI: DLP: Trnscb Date/Time: 07/02/2018 (136) [email or web address] Orig Print D/T: S: 07/02/2018 (014) PAGE 2 Signed Report URINALYSIS COMPLETE 2018-07-02 01:07:00 UA COLOR (test code=COLU) Dark-Red YELLOW UA APPEARANCE (test code=APPU) TURBID CLEAR UA GLUCOSE DIPSTICK (test code=DGLUU) NEGATIVE mg/dL NEGATIVE UA BILIRUBIN DIPSTICK (test code=BILU) NEGATIVE mg/dL NEGATIVE UA KETONE DIPSTICK (test code=KETU) NEGATIVE mg/dL NEGATIVE UA SPECIFIC GRAVITY (test code=SGU) 1.016 1.001-1.035 UA BLOOD DIPSTICK (test code=DAVID) 1.0 mg/dL (3+) mg/dL NEGATIVE UA PH DIPSTICK (test code=HEATHER) 6.0 5.0-8.0 UA PROTEIN DIPSTICK (test code=PROU) 100 (2+) mg/dL NEGATIVE UA UROBILINIOGEN DIPSTICK (test code=URO) Normal mg/dL NEGATIVE UA NITRITE DIPSTICK (test code=LOLLY) NEGATIVE NEGATIVE UA LEUKOCYTE ESTERASE W REFLEX (test code=LEUUR) 250 Dudley/uL (2+) Dudley/uL NEGATIVE UA WBC (test code=WBCU) 6-10 per HPF 0-5 UA RBC (test code=RBCU) 25-50 #/HPF 0-5 UA EPITHELIAL CELLS (test code=EPIU) Few (2-5/hpf) per HPF FEW UA BACTERIA (test code=BACU) FEW #/HPF NONE Urine Source? Clean CatchBASIC METABOLIC [id number] 22:02:00* Test Item Value Reference Range Comments SODIUM (test code=NA) 139 mmol/L 136-145 POTASSIUM (test code=K) 3.8 mmol/L 3.5-5.1 CHLORIDE (test code=CL) 108.0 mmol/L 98-107 CARBON DIOXIDE (test code=CO2) 26.0 mmol/L 21-32 ANION GAP (test code=GAP) 8.8 10-20 GLUCOSE (test code=GLU) 139 mg/dL 74-106 BLOOD UREA NITROGEN (test code=BUN) 18 mg/dL 7-18 GLOMERULAR FILTRATION RATE (test code=GFR) 41 mL/min >=60 Estimated GFR by using Modified MDRD formula.Chronic kidney disease is defined as either kidney damageor GFR <60 mL/min/1.73 m2 for >3 months. CREATININE (test code=CREAT) 1.80 mg/dL 0.7-1.3 BUN/CREATININE RATIO (test code=BUN/CREA) 10.0 10-20 CALCIUM (test code=CA) 8.6 mg/dL 8.5-10.1 HEPATIC FUNCTION [id number] 22:02:00* Test Item Value Reference Range Comments TOTAL PROTEIN (test code=PROT) 7.1 gram/dL 6.4-8.2 ALBUMIN (test code=ALB) 3.5 g/dL 3.4-5.0 GLOBULIN (test code=GLOB) 3.6 gram/dL 2.7-4.2 ALBUMIN/GLOBULIN RATIO (test code=A/G) 1.0 0.75-1.50 BILIRUBIN TOTAL (test code=BILT) 0.30 mg/dL 0.0-1.0 BILIRUBIN DIRECT (test code=BILD) 0.08 mg/dL 0.0-0.20 SGOT/AST (test code=AST) 17 IUnit/L 15-37 SGPT/ALT (test code=ALT) 25 IUnit/L 12-78 ALKALINE PHOSPHATASE TOTAL (test code=ALKP) 103 IUnit/L 45-117 Note change in reference range due to change in reagent. [id number] 22:02:00* Test Item Value Reference Range Comments LIPASE (test code=LIP) 154 U/L 73.0-393.0 BASIC METABOLIC [id number] 21:47:00* Test Item Value Reference Range Comments SODIUM (test code=NA) 139 mmol/L 136-145 POTASSIUM (test code=K) 3.8 mmol/L 3.5-5.1 CHLORIDE (test code=CL) 108.0 mmol/L 98-107 CARBON DIOXIDE (test code=CO2) mmol/L 21-32 ANION GAP (test code=GAP) 10-20 GLUCOSE (test code=GLU) mg/dL 74-106 BLOOD UREA NITROGEN (test code=BUN) mg/dL 7-18 GLOMERULAR FILTRATION RATE (test code=GFR) mL/min >=60 CREATININE (test code=CREAT) mg/dL 0.7-1.3 BUN/CREATININE RATIO (test code=BUN/CREA) 10-20 CALCIUM (test code=CA) mg/dL 8.5-10.1 HEPATIC FUNCTION [id number] 21:47:00* Test Item Value Reference Range Comments TOTAL PROTEIN (test code=PROT) gram/dL 6.4-8.2 ALBUMIN (test code=ALB) g/dL 3.4-5.0 GLOBULIN (test code=GLOB) gram/dL 2.7-4.2 ALBUMIN/GLOBULIN RATIO (test code=A/G) 0.75-1.50 BILIRUBIN TOTAL (test code=BILT) mg/dL 0.0-1.0 BILIRUBIN DIRECT (test code=BILD) mg/dL 0.0-0.20 SGOT/AST (test code=AST) IUnit/L 15-37 SGPT/ALT (test code=ALT) IUnit/L 12-78 ALKALINE PHOSPHATASE TOTAL (test code=ALKP) IUnit/L 45-117 [id number] 21:47:00* Test Item Value Reference Range Comments LIPASE (test code=LIP) U/L 73.0-393.0 CBC W/O [id number] 21:31:00* Test Item Value Reference Range Comments WHITE BLOOD CELL (test code=WBC) 7.2 K/mm3 4.5-12.5 RED BLOOD CELL (test code=RBC) 3.61 mill/mm3 4.0-5.8 HEMOGLOBIN (test code=HGB) 10.8 gram/dL 13.0-17.5 HEMATOCRIT (test code=HCT) 32.2 % 42.0-52.0 MEAN CELL VOLUME (test code=MCV) 89.2 fL 80-98 MEAN CELL HGB (test code=MCH) 29.9 picogram 27.0-33.0 MEAN CELL HGB CONCETRATION (test code=MCHC) 33.5 gram/dL 33.0-36.0 RED CELL DISTRIBUTION WIDTH (test code=RDW) 13.2 % 11.6-16.2 PLATELET COUNT (test code=PLT) 288 K/mm3 150-450 MEAN PLATELET VOLUME (test code=MPV) 8.7 fL 6.7-11.0 [id number] 07:27:00* Test Item Value Reference Range Comments GLUBED (test code=GLUBED) 86 mg/dL 74-106 [facility] [id number] 07:26:00* Test Item Value Reference Range Comments GLUBED (test code=GLUBED) 213 mg/dL 74-106 Performed by certified zmt operator at [facility] [id number] 07:26:00* Test Item Value Reference Range Comments GLUBED (test code=GLUBED) 151 mg/dL 74-106 Performed by certified zmt operator at [facility] [id number] 07:26:00* Test Item Value Reference Range Comments GLUBED (test code=GLUBED) 142 mg/dL 74-106 Performed by certified zmt operator at [facility] [id number] 07:26:00* Test Item Value Reference Range Comments GLUBED (test code=GLUBED) 141 mg/dL 74-106 Performed by certified zmt operator at [facility] [id number] 07:25:00* Test Item Value Reference Range Comments GLUBED (test code=GLUBED) 212 mg/dL 74-106 Performed by certified zmt operator at [facility] [id number] 07:25:00* Test Item Value Reference Range Comments GLUBED (test code=GLUBED) 189 mg/dL 74-106 Performed by certified zmt operator at [facility] [id number] 07:24:00* Test Item Value Reference Range Comments GLUBED (test code=GLUBED) 278 mg/dL 74-106 Performed by certified zmt operator at [facility] [id number] 07:24:00* Test Item Value Reference Range Comments GLUBED (test code=GLUBED) 193 mg/dL 74-106 [facility] [id number] 07:22:00* Test Item Value Reference Range Comments GLUBED (test code=GLUBED) 206 mg/dL 74-106 [facility] [id number] 07:22:00* Test Item Value Reference Range Comments GLUBED (test code=GLUBED) 113 mg/dL 74-106 [facility] CALCULUS (STONE) [id number] 17:07:00* Test Item Value Reference Range Comments SOURCE OF STONE (test code=STONESRC) BLADDER STONES COLOR: TANSPECIMEN RECEIVED FRAGMENTS STONE ANALYSIS COMMENT (test code=STONECOM) NO NIDUS VISUALIZED NIDUS COMPOSITION: Calcium oxalate dihydrate 15 % Calcium oxalate monohydrate 2 % Magnesium ammonium phosphate 3 % Ammonium acid urate 80 % STONE ANALYSIS (test code=STONE) () Photograph will follow under separate cover. WEIGHT OF STONE (test code=STONEWT) 72.0 mg () Test performed at: [address] [address] SPECIMEN COMMENTS: BLADDER STONESCOMMENTS TO MIXER WET POUR: COLLECTED DURING SURG [id number] 15:59:00* Test Item Value Reference Range Comments GLUBED (test code=GLUBED) 118 mg/dL 74-106 Performed by certified zmt operator at [facility] BLOOD UREA [id number] 05:43:00* Test Item Value Reference Range Comments BLOOD UREA NITROGEN (test code=BUN) 18 mg/dL 7-18 [id number] 05:43:00* Test Item Value Reference Range Comments CREATININE (test code=CREAT) 2.20 mg/dL 0.7-1.3 CBC W/AUTO [id number] 05:15:00* Test Item Value Reference Range Comments WHITE BLOOD CELL (test code=WBC) 7.1 K/mm3 4.5-12.5 RED BLOOD CELL (test code=RBC) 3.33 mill/mm3 4.0-5.8 HEMOGLOBIN (test code=HGB) 9.6 gram/dL 13.0-17.5 HEMATOCRIT (test code=HCT) 32.3 % 42.0-52.0 MEAN CELL VOLUME (test code=MCV) 97.0 fL 80-98 MEAN CELL HGB (test code=MCH) 28.8 picogram 27.0-33.0 MEAN CELL HGB CONCETRATION (test code=MCHC) 29.7 gram/dL 33.0-36.0 RED CELL DISTRIBUTION WIDTH (test code=RDW) 14.8 % 11.6-16.2 RED CELL DISTRIBUTION WIDTH SD (test code=RDW-SD) 51.6 fL 37.0-51.0 PLATELET COUNT (test code=PLT) 195 K/mm3 150-450 MEAN PLATELET VOLUME (test code=MPV) 9.0 fL 6.7-11.0 NEUTROPHIL % (test code=NT%) 68.1 % 39.0-69.0 IMMATURE GRANULOCYTE % (test code=IG%) 2.7 % 0.0-5.0 LYMPHOCYTE % (test code=LY%) 16.4 % 25.0-55.0 MONOCYTE % (test code=MO%) 8.2 % 0.0-10.0 EOSINOPHIL % (test code=EO%) 4.2 % 0.0-5.0 BASOPHIL % (test code=BA%) 0.4 % 0.0-1.0 NUCLEATED RBC % (test code=NRBC%) 0.6 % 0-0 NEUTROPHIL # (test code=NT#) 4.81 K/mm3 1.8-7.7 IMMATURE GRANULOCYTE # (test code=IG#) 0.19 x10 3/uL 0-0.03 LYMPHOCYTE # (test code=LY#) 1.16 K/mm3 1.0-5.0 MONOCYTE # (test code=MO#) 0.58 K/mm3 0-0.8 EOSINOPHIL # (test code=EO#) 0.30 K/mm3 0.0-0.5 BASOPHIL # (test code=BA#) 0.03 K/mm3 0.0-0.2 NUCLEATED RBC # (test code=NRBC#) 0.04 K/mm3 0.0-0.1 MANUAL DIFF REQUIRED (test code=MDIFF) NO, ONLY SCAN NEEDED DIFFERENTIAL [id number] 05:15:00* Test Item Value Reference Range Comments STAIN ACCEPTABILITY (test code=STN ACCEPTABLE) STAIN ACCEPTABLE ANISOCYTOSIS (test code=ANISO) 1+ MICROCYTOSIS (test code=MICR) 1+ PLATELET ESTIMATE (test code=PLTEST) ADEQUATE PLATELET MORPHOLOGY (test code=PLTMORPH) NORMAL CBC W/AUTO [id number] 05:05:00* Test Item Value Reference Range Comments WHITE BLOOD CELL (test code=WBC) 7.1 K/mm3 4.5-12.5 RED BLOOD CELL (test code=RBC) 3.33 mill/mm3 4.0-5.8 HEMOGLOBIN (test code=HGB) 9.6 gram/dL 13.0-17.5 HEMATOCRIT (test code=HCT) 32.3 % 42.0-52.0 MEAN CELL VOLUME (test code=MCV) 97.0 fL 80-98 MEAN CELL HGB (test code=MCH) 28.8 picogram 27.0-33.0 MEAN CELL HGB CONCETRATION (test code=MCHC) 29.7 gram/dL 33.0-36.0 RED CELL DISTRIBUTION WIDTH (test code=RDW) 14.8 % 11.6-16.2 RED CELL DISTRIBUTION WIDTH SD (test code=RDW-SD) 51.6 fL 37.0-51.0 PLATELET COUNT (test code=PLT) 195 K/mm3 150-450 MEAN PLATELET VOLUME (test code=MPV) 9.0 fL 6.7-11.0 NEUTROPHIL % (test code=NT%) 68.1 % 39.0-69.0 IMMATURE GRANULOCYTE % (test code=IG%) 2.7 % 0.0-5.0 LYMPHOCYTE % (test code=LY%) 16.4 % 25.0-55.0 MONOCYTE % (test code=MO%) 8.2 % 0.0-10.0 EOSINOPHIL % (test code=EO%) 4.2 % 0.0-5.0 BASOPHIL % (test code=BA%) 0.4 % 0.0-1.0 NUCLEATED RBC % (test code=NRBC%) 0.6 % 0-0 NEUTROPHIL # (test code=NT#) 4.81 K/mm3 1.8-7.7 IMMATURE GRANULOCYTE # (test code=IG#) 0.19 x10 3/uL 0-0.03 LYMPHOCYTE # (test code=LY#) 1.16 K/mm3 1.0-5.0 MONOCYTE # (test code=MO#) 0.58 K/mm3 0-0.8 EOSINOPHIL # (test code=EO#) 0.30 K/mm3 0.0-0.5 BASOPHIL # (test code=BA#) 0.03 K/mm3 0.0-0.2 NUCLEATED RBC # (test code=NRBC#) 0.04 K/mm3 0.0-0.1 MANUAL DIFF REQUIRED (test code=MDIFF) NO, ONLY SCAN NEEDED DIFFERENTIAL [id number] 05:05:00* Test Item Value Reference Range Comments STAIN ACCEPTABILITY (test code=STN ACCEPTABLE) CABOT RINGS (test code=CAB) MORPHOLOGY COMMENT (test code=MOC) PLATELET ESTIMATE (test code=PLTEST) PLATELET MORPHOLOGY (test code=PLTMORPH) CBC W/AUTO [id number] 05:05:00* Test Item Value Reference Range Comments WHITE BLOOD CELL (test code=WBC) 7.1 K/mm3 4.5-12.5 RED BLOOD CELL (test code=RBC) 3.33 mill/mm3 4.0-5.8 HEMOGLOBIN (test code=HGB) 9.6 gram/dL 13.0-17.5 HEMATOCRIT (test code=HCT) 32.3 % 42.0-52.0 MEAN CELL VOLUME (test code=MCV) 97.0 fL 80-98 MEAN CELL HGB (test code=MCH) 28.8 picogram 27.0-33.0 MEAN CELL HGB CONCETRATION (test code=MCHC) 29.7 gram/dL 33.0-36.0 RED CELL DISTRIBUTION WIDTH (test code=RDW) 14.8 % 11.6-16.2 RED CELL DISTRIBUTION WIDTH SD (test code=RDW-SD) 51.6 fL 37.0-51.0 PLATELET COUNT (test code=PLT) 195 K/mm3 150-450 MEAN PLATELET VOLUME (test code=MPV) 9.0 fL 6.7-11.0 NEUTROPHIL % (test code=NT%) 68.1 % 39.0-69.0 IMMATURE GRANULOCYTE % (test code=IG%) 2.7 % 0.0-5.0 LYMPHOCYTE % (test code=LY%) 16.4 % 25.0-55.0 MONOCYTE % (test code=MO%) 8.2 % 0.0-10.0 EOSINOPHIL % (test code=EO%) 4.2 % 0.0-5.0 BASOPHIL % (test code=BA%) 0.4 % 0.0-1.0 NUCLEATED RBC % (test code=NRBC%) 0.6 % 0-0 NEUTROPHIL # (test code=NT#) 4.81 K/mm3 1.8-7.7 IMMATURE GRANULOCYTE # (test code=IG#) 0.19 x10 3/uL 0-0.03 LYMPHOCYTE # (test code=LY#) 1.16 K/mm3 1.0-5.0 MONOCYTE # (test code=MO#) 0.58 K/mm3 0-0.8 EOSINOPHIL # (test code=EO#) 0.30 K/mm3 0.0-0.5 BASOPHIL # (test code=BA#) 0.03 K/mm3 0.0-0.2 NUCLEATED RBC # (test code=NRBC#) 0.04 K/mm3 0.0-0.1 MANUAL DIFF REQUIRED (test code=MDIFF) NO, ONLY SCAN NEEDED DIFFERENTIAL [id number] 05:05:00* Test Item Value Reference Range Comments STAIN ACCEPTABILITY (test code=STN ACCEPTABLE) CABOT RINGS (test code=CAB) MORPHOLOGY COMMENT (test code=MOC) PLATELET ESTIMATE (test code=PLTEST) PLATELET MORPHOLOGY (test code=PLTMORPH) CBC W/AUTO [id number] 05:05:00* Test Item Value Reference Range Comments WHITE BLOOD CELL (test code=WBC) 7.1 K/mm3 4.5-12.5 RED BLOOD CELL (test code=RBC) 3.33 mill/mm3 4.0-5.8 HEMOGLOBIN (test code=HGB) 9.6 gram/dL 13.0-17.5 HEMATOCRIT (test code=HCT) 32.3 % 42.0-52.0 MEAN CELL VOLUME (test code=MCV) 97.0 fL 80-98 MEAN CELL HGB (test code=MCH) 28.8 picogram 27.0-33.0 MEAN CELL HGB CONCETRATION (test code=MCHC) 29.7 gram/dL 33.0-36.0 RED CELL DISTRIBUTION WIDTH (test code=RDW) 14.8 % 11.6-16.2 RED CELL DISTRIBUTION WIDTH SD (test code=RDW-SD) 51.6 fL 37.0-51.0 PLATELET COUNT (test code=PLT) 195 K/mm3 150-450 MEAN PLATELET VOLUME (test code=MPV) 9.0 fL 6.7-11.0 NEUTROPHIL % (test code=NT%) 68.1 % 39.0-69.0 IMMATURE GRANULOCYTE % (test code=IG%) 2.7 % 0.0-5.0 LYMPHOCYTE % (test code=LY%) 16.4 % 25.0-55.0 MONOCYTE % (test code=MO%) 8.2 % 0.0-10.0 EOSINOPHIL % (test code=EO%) 4.2 % 0.0-5.0 BASOPHIL % (test code=BA%) 0.4 % 0.0-1.0 NUCLEATED RBC % (test code=NRBC%) 0.6 % 0-0 NEUTROPHIL # (test code=NT#) 4.81 K/mm3 1.8-7.7 IMMATURE GRANULOCYTE # (test code=IG#) 0.19 x10 3/uL 0-0.03 LYMPHOCYTE # (test code=LY#) 1.16 K/mm3 1.0-5.0 MONOCYTE # (test code=MO#) 0.58 K/mm3 0-0.8 EOSINOPHIL # (test code=EO#) 0.30 K/mm3 0.0-0.5 BASOPHIL # (test code=BA#) 0.03 K/mm3 0.0-0.2 NUCLEATED RBC # (test code=NRBC#) 0.04 K/mm3 0.0-0.1 MANUAL DIFF REQUIRED (test code=MDIFF) NO, ONLY SCAN NEEDED DIFFERENTIAL [id number] 05:05:00* Test Item Value Reference Range Comments STAIN ACCEPTABILITY (test code=STN ACCEPTABLE) MORPHOLOGY COMMENT (test code=MOC) PLATELET ESTIMATE (test code=PLTEST) PLATELET MORPHOLOGY (test code=PLTMORPH) CBC W/AUTO [id number] 05:05:00* Test Item Value Reference Range Comments WHITE BLOOD CELL (test code=WBC) 7.1 K/mm3 4.5-12.5 RED BLOOD CELL (test code=RBC) 3.33 mill/mm3 4.0-5.8 HEMOGLOBIN (test code=HGB) 9.6 gram/dL 13.0-17.5 HEMATOCRIT (test code=HCT) 32.3 % 42.0-52.0 MEAN CELL VOLUME (test code=MCV) 97.0 fL 80-98 MEAN CELL HGB (test code=MCH) 28.8 picogram 27.0-33.0 MEAN CELL HGB CONCETRATION (test code=MCHC) 29.7 gram/dL 33.0-36.0 RED CELL DISTRIBUTION WIDTH (test code=RDW) 14.8 % 11.6-16.2 RED CELL DISTRIBUTION WIDTH SD (test code=RDW-SD) 51.6 fL 37.0-51.0 PLATELET COUNT (test code=PLT) 195 K/mm3 150-450 MEAN PLATELET VOLUME (test code=MPV) 9.0 fL 6.7-11.0 NEUTROPHIL % (test code=NT%) 68.1 % 39.0-69.0 IMMATURE GRANULOCYTE % (test code=IG%) 2.7 % 0.0-5.0 LYMPHOCYTE % (test code=LY%) 16.4 % 25.0-55.0 MONOCYTE % (test code=MO%) 8.2 % 0.0-10.0 EOSINOPHIL % (test code=EO%) 4.2 % 0.0-5.0 BASOPHIL % (test code=BA%) 0.4 % 0.0-1.0 NUCLEATED RBC % (test code=NRBC%) 0.6 % 0-0 NEUTROPHIL # (test code=NT#) 4.81 K/mm3 1.8-7.7 IMMATURE GRANULOCYTE # (test code=IG#) 0.19 x10 3/uL 0-0.03 LYMPHOCYTE # (test code=LY#) 1.16 K/mm3 1.0-5.0 MONOCYTE # (test code=MO#) 0.58 K/mm3 0-0.8 EOSINOPHIL # (test code=EO#) 0.30 K/mm3 0.0-0.5 BASOPHIL # (test code=BA#) 0.03 K/mm3 0.0-0.2 NUCLEATED RBC # (test code=NRBC#) 0.04 K/mm3 0.0-0.1 MANUAL DIFF REQUIRED (test code=MDIFF) NO, ONLY SCAN NEEDED DIFFERENTIAL [id number] 05:05:00* Test Item Value Reference Range Comments STAIN ACCEPTABILITY (test code=STN ACCEPTABLE) CABOT RINGS (test code=CAB) MORPHOLOGY COMMENT (test code=MOC) PLATELET ESTIMATE (test code=PLTEST) PLATELET MORPHOLOGY (test code=PLTMORPH) - [id number] 14:17:00 FAX: Kory Campbell MD [phone] [place]: B St: ADM FAX: Prosper Aiken MD [phone] Name: [facility] : 1975 Age/S: 42/M [address] [facility] Unit #: [id number] Loc: V.[facility] [place] [address] Phys: Prosper Dimas MD Acct: [id number] Dis Date: Status: ADM IN PHONE #: [phone] Exam Date: 04/05/2018 1330 FAX #: [phone] Reason: W/O LASIX. EVAL FOR D IFFERENTIAL F(X) AND SCARR EXAMS: CPT CODE: [id number] [facility] [id number] HISTORY: Bilateral hydronephrosis and hematuria. C OMPARISON: CT scan from March 30, 2018. Renal scan without Lasix : 8.5 mCi of technetium 99m Choletec. Sequential images obtained. Static images obtained demonstrating greater uptake on the left when compared to the right side. Percentage uptake was calculated to 51.8% on the left and 48.2% on the right side. Time activity curve demons trating symmetrical normal initial rise bilaterally. Excretion is noted a lbeit slight on the left on the time activity curves. No excretion noted on the right side with completely flat time activity curve. Time to peak is relatively normal on the left at 6.4 minutes and severely dilated 24.4 minutes on the right side. IMPRESSION: No excretion noted on the right side with completely flat time act ivity curve suggesting mechanical obstruction. Excretion noted on the right side. Electronically Signed by Haley Edmonds on at 1417 Reported and signed by: Rick Anderson CC: Kory Jerome MD; Prosper Dimas MD Alea hnologist: FRANCISCO SINGH Trnscrd Date/T amada/By: 04/05/2018 (141) : By: [email or web address] Orig Print D/T: S: 9 (0118) PAGE 1 Signed Report CALCULUS (STONE) [id number] 11:25:00* Test Item Value Reference Range Comments SOURCE OF STONE (test code=STONESRC) STONE ANALYSIS COMMENT (test code=STONECOM) NIDUS STONE ANALYSIS (test code=STONE) () Photograph will follow under separate cover. WEIGHT OF STONE (test code=STONEWT) 72.0 mg () Test performed at: [facility] [address] [place] [id number] SPECIMEN COMMENTS: BLADDER STONESCOMMENTS TO MIXER WET POUR: COLLECTED DURING SURG [id number] 08:56:00* Test Item Value Reference Range Comments GLUBED (test code=GLUBED) 147 mg/dL 74-106 Performed by certified zmt operator at [facility] BASIC METABOLIC [id number] 07:18:00* Test Item Value Reference Range Comments SODIUM (test code=NA) 144 mmol/L 136-145 POTASSIUM (test code=K) 4.0 mmol/L 3.5-5.1 CHLORIDE (test code=CL) 107.0 mmol/L 98-107 CARBON DIOXIDE (test code=CO2) 29.0 mmol/L 21-32 ANION GAP (test code=GAP) 12.0 10-20 GLUCOSE (test code=GLU) 65 mg/dL 74-106 BLOOD UREA NITROGEN (test code=BUN) 14 mg/dL 7-18 GLOMERULAR FILTRATION RATE (test code=GFR) 36 mL/min >=60 Estimated GFR by using Modified MDRD formula.Chronic kidney disease is defined as either kidney damageor GFR <60 mL/min/1.73 m2 for >3 months. CREATININE (test code=CREAT) 2.00 mg/dL 0.7-1.3 BUN/CREATININE RATIO (test code=BUN/CREA) 6.9 10-20 CALCIUM (test code=CA) 8.0 mg/dL 8.5-10.1 [id number] 07:18:00* Test Item Value Reference Range Comments MAGNESIUM (test code=MAG) 1.6 mg/dL 1.8-2.4 CALCIUM [id number] 07:18:00* Test Item Value Reference Range Comments CALCIUM IONIZED (test code=JUVENAL) 1.27 mmol/L 1.12-1.32 BASIC METABOLIC [id number] 07:10:00* Test Item Value Reference Range Comments SODIUM (test code=NA) 144 mmol/L 136-145 POTASSIUM (test code=K) 4.0 mmol/L 3.5-5.1 CHLORIDE (test code=CL) 107.0 mmol/L 98-107 CARBON DIOXIDE (test code=CO2) 29.0 mmol/L 21-32 ANION GAP (test code=GAP) 12.0 10-20 GLUCOSE (test code=GLU) 65 mg/dL 74-106 BLOOD UREA NITROGEN (test code=BUN) 14 mg/dL 7-18 GLOMERULAR FILTRATION RATE (test code=GFR) 36 mL/min >=60 Estimated GFR by using Modified MDRD formula.Chronic kidney disease is defined as either kidney damageor GFR <60 mL/min/1.73 m2 for >3 months. CREATININE (test code=CREAT) 2.00 mg/dL 0.7-1.3 BUN/CREATININE RATIO (test code=BUN/CREA) 6.9 10-20 CALCIUM (test code=CA) 8.0 mg/dL 8.5-10.1 [id number] 07:10:00* Test Item Value Reference Range Comments MAGNESIUM (test code=MAG) 1.6 mg/dL 1.8-2.4 CALCIUM [id number] 07:10:00* Test Item Value Reference Range Comments CALCIUM IONIZED (test code=JUVENAL) mmol/L 1.12-1.32 CBC W/AUTO [id number] 07:09:00* Test Item Value Reference Range Comments WHITE BLOOD CELL (test code=WBC) 7.9 K/mm3 4.5-12.5 RED BLOOD CELL (test code=RBC) 3.49 mill/mm3 4.0-5.8 HEMOGLOBIN (test code=HGB) 10.2 gram/dL 13.0-17.5 HEMATOCRIT (test code=HCT) 32.6 % 42.0-52.0 MEAN CELL VOLUME (test code=MCV) 93.4 fL 80-98 MEAN CELL HGB (test code=MCH) 29.2 picogram 27.0-33.0 MEAN CELL HGB CONCETRATION (test code=MCHC) 31.3 gram/dL 33.0-36.0 RED CELL DISTRIBUTION WIDTH (test code=RDW) 14.7 % 11.6-16.2 RED CELL DISTRIBUTION WIDTH SD (test code=RDW-SD) 49.6 fL 37.0-51.0 PLATELET COUNT (test code=PLT) 208 K/mm3 150-450 MEAN PLATELET VOLUME (test code=MPV) 8.9 fL 6.7-11.0 NEUTROPHIL % (test code=NT%) 63.6 % 39.0-69.0 IMMATURE GRANULOCYTE % (test code=IG%) 3.4 % 0.0-5.0 LYMPHOCYTE % (test code=LY%) 19.9 % 25.0-55.0 MONOCYTE % (test code=MO%) 8.4 % 0.0-10.0 EOSINOPHIL % (test code=EO%) 4.2 % 0.0-5.0 BASOPHIL % (test code=BA%) 0.5 % 0.0-1.0 NUCLEATED RBC % (test code=NRBC%) 1.5 % 0-0 RESULT VERIFIED BY REPEAT ANALYSIS NEUTROPHIL # (test code=NT#) 5.04 K/mm3 1.8-7.7 IMMATURE GRANULOCYTE # (test code=IG#) 0.27 x10 3/uL 0-0.03 LYMPHOCYTE # (test code=LY#) 1.58 K/mm3 1.0-5.0 MONOCYTE # (test code=MO#) 0.67 K/mm3 0-0.8 EOSINOPHIL # (test code=EO#) 0.33 K/mm3 0.0-0.5 BASOPHIL # (test code=BA#) 0.04 K/mm3 0.0-0.2 NUCLEATED RBC # (test code=NRBC#) 0.12 K/mm3 0.0-0.1 BASIC METABOLIC [id number] 07:05:00* Test Item Value Reference Range Comments SODIUM (test code=NA) 144 mmol/L 136-145 POTASSIUM (test code=K) 4.0 mmol/L 3.5-5.1 CHLORIDE (test code=CL) 107.0 mmol/L 98-107 CARBON DIOXIDE (test code=CO2) mmol/L 21-32 ANION GAP (test code=GAP) 10-20 GLUCOSE (test code=GLU) mg/dL 74-106 BLOOD UREA NITROGEN (test code=BUN) mg/dL 7-18 GLOMERULAR FILTRATION RATE (test code=GFR) mL/min >=60 CREATININE (test code=CREAT) mg/dL 0.7-1.3 BUN/CREATININE RATIO (test code=BUN/CREA) 10-20 CALCIUM (test code=CA) mg/dL 8.5-10.1 [id number] 07:05:00* Test Item Value Reference Range Comments MAGNESIUM (test code=MAG) mg/dL 1.8-2.4 CALCIUM [id number] 07:05:00* Test Item Value Reference Range Comments CALCIUM IONIZED (test code=JUVENAL) mmol/L 1.12-1.32 [id number] 20:54:00* Test Item Value Reference Range Comments GLUBED (test code=GLUBED) 160 mg/dL 74-106 Performed by certified zmt operator at [facility] [id number] 09:06:00* Test Item Value Reference Range Comments GLUBED (test code=GLUBED) 80 mg/dL 74-106 Performed by certified zmt operator at [facility] - ABDOMEN [id number] 07:48:00 Name: LINSEY BEE [facility] : 1975 Age/S: 42 / M Radha Nguyễn Unit #: [id number] Loc: [place] [address] Phys: Aspen Esposito Acct: [id number] Dis Date: Status: ADM IN PHONE #: [phone] Exam Date: 04/01/2018 0005 FAX #: [phone] Reason: gallstones - r/o cholecystitis EXAMS: CPT CODE: [id number] ABDOMEN LTD [id number] EXAM: Ultrasound abdomen, limited; INFORMATION: Gallstones, rule out cholecystitis; a recent CT scan has demonstrated gallstones and bilateral hydronephrosis. FINDINGS: The liver is of normal size and shape and without focal lesions. Stones are seen within the neck of the gallbladder; the gallbladder is otherwise of normal diameter and wall thickness; no pericholecystic fluid collections and negative sonographic Acosta's sign. No dilatation of intra or extrahepatic bile ducts. The right kidney measures 11.3 x 6.3 x 5.2 cm and shows significant dilatation of the collecting system. Imaged portions of the IVC and abdominal aorta are unremarkable. IMPRESSION: 1. Cholecystolithiasis without sonographic evidence of cholecystitis. 2. Hydronephrotic right kidney. at 0748 Reported and signed by: Domo Drummond M.D. CC: Kory Jerome MD; Aspen Esposito Technologist: Marlene Lowry RDMS Trnmdb Date/Time: 04/04/2018 (0748) Carlee Orig Print D/T: S: 04/04/2018 (0751) Probe: PAGE 1 Signed Report BASIC METABOLIC [id number] 06:01:00* Test Item Value Reference Range Comments SODIUM (test code=NA) 142 mmol/L 136-145 POTASSIUM (test code=K) 3.4 mmol/L 3.5-5.1 CHLORIDE (test code=CL) 107.0 mmol/L 98-107 CARBON DIOXIDE (test code=CO2) 26.0 mmol/L 21-32 ANION GAP (test code=GAP) 12.4 10-20 GLUCOSE (test code=GLU) 117 mg/dL 74-106 BLOOD UREA NITROGEN (test code=BUN) 17 mg/dL 7-18 GLOMERULAR FILTRATION RATE (test code=GFR) 30 mL/min >=60 Estimated GFR by using Modified MDRD formula.Chronic kidney disease is defined as either kidney damageor GFR <60 mL/min/1.73 m2 for >3 months. CREATININE (test code=CREAT) 2.40 mg/dL 0.7-1.3 BUN/CREATININE RATIO (test code=BUN/CREA) 7.0 10-20 CALCIUM (test code=CA) 7.6 mg/dL 8.5-10.1 [id number] 06:01:00* Test Item Value Reference Range Comments PHOSPHORUS (test code=PHOS) 2.8 mg/dL 2.5-4.9 [id number] 06:01:00* Test Item Value Reference Range Comments MAGNESIUM (test code=MAG) 1.6 mg/dL 1.8-2.4 BASIC METABOLIC [id number] 05:54:00* Test Item Value Reference Range Comments SODIUM (test code=NA) 142 mmol/L 136-145 POTASSIUM (test code=K) 3.4 mmol/L 3.5-5.1 CHLORIDE (test code=CL) 107.0 mmol/L 98-107 CARBON DIOXIDE (test code=CO2) mmol/L 21-32 ANION GAP (test code=GAP) 10-20 GLUCOSE (test code=GLU) mg/dL 74-106 BLOOD UREA NITROGEN (test code=BUN) mg/dL 7-18 GLOMERULAR FILTRATION RATE (test code=GFR) mL/min >=60 CREATININE (test code=CREAT) mg/dL 0.7-1.3 BUN/CREATININE RATIO (test code=BUN/CREA) 10-20 CALCIUM (test code=CA) mg/dL 8.5-10.1 [id number] 05:54:00* Test Item Value Reference Range Comments PHOSPHORUS (test code=PHOS) mg/dL 2.5-4.9 [id number] 05:54:00* Test Item Value Reference Range Comments MAGNESIUM (test code=MAG) mg/dL 1.8-2.4 [id number] 20:48:00* Test Item Value Reference Range Comments GLUBED (test code=GLUBED) 152 mg/dL 74-106 Performed by certified zmt operator at [facility] CBC W/AUTO [id number] 18:43:00* Test Item Value Reference Range Comments WHITE BLOOD CELL (test code=WBC) 9.6 K/mm3 4.5-12.5 RED BLOOD CELL (test code=RBC) 3.34 mill/mm3 4.0-5.8 HEMOGLOBIN (test code=HGB) 9.8 gram/dL 13.0-17.5 HEMATOCRIT (test code=HCT) 30.8 % 42.0-52.0 MEAN CELL VOLUME (test code=MCV) 92.2 fL 80-98 MEAN CELL HGB (test code=MCH) 29.3 picogram 27.0-33.0 MEAN CELL HGB CONCETRATION (test code=MCHC) 31.8 gram/dL 33.0-36.0 RED CELL DISTRIBUTION WIDTH (test code=RDW) 14.8 % 11.6-16.2 RED CELL DISTRIBUTION WIDTH SD (test code=RDW-SD) 49.7 fL 37.0-51.0 PLATELET COUNT (test code=PLT) 205 K/mm3 150-450 MEAN PLATELET VOLUME (test code=MPV) 9.1 fL 6.7-11.0 NEUTROPHIL % (test code=NT%) 68.4 % 39.0-69.0 IMMATURE GRANULOCYTE % (test code=IG%) 4.4 % 0.0-5.0 LYMPHOCYTE % (test code=LY%) 15.3 % 25.0-55.0 MONOCYTE % (test code=MO%) 8.7 % 0.0-10.0 EOSINOPHIL % (test code=EO%) 2.9 % 0.0-5.0 BASOPHIL % (test code=BA%) 0.3 % 0.0-1.0 NUCLEATED RBC % (test code=NRBC%) 0.3 % 0-0 NEUTROPHIL # (test code=NT#) 6.59 K/mm3 1.8-7.7 IMMATURE GRANULOCYTE # (test code=IG#) 0.42 x10 3/uL 0-0.03 LYMPHOCYTE # (test code=LY#) 1.47 K/mm3 1.0-5.0 MONOCYTE # (test code=MO#) 0.84 K/mm3 0-0.8 EOSINOPHIL # (test code=EO#) 0.28 K/mm3 0.0-0.5 BASOPHIL # (test code=BA#) 0.03 K/mm3 0.0-0.2 NUCLEATED RBC # (test code=NRBC#) 0.03 K/mm3 0.0-0.1 MANUAL DIFF REQUIRED (test code=MDIFF) NO [id number] 17:01:00* Test Item Value Reference Range Comments GLUBED (test code=GLUBED) 257 mg/dL 74-106 Performed by certified zmt operator at [facility] [id number] 16:25:00 RUN DATE: 04/03/18 [place] [facility] PAGE 1 RUN TIME: 1625 Specimen Inqui ry RUN USER: INTERFACE PATIENT: LINSEY BEE ACCT #: [id number] LOC: KINDRA U #: [id number] AGE/SX: 42/M ROOM: [facility] RE03/29/18REG DR: Kory Jerome MD : 71 BED: A DIS: STATUS: ADM IN TLOC: SPEC #: [id number] RECD: 04/02/18 STATUS: RUBINA REOmkar #: [id number] BAILEY: 04/02/18 DR: Patel Dimas ENTERED: 04/02/18 SP TYPE: CALCULI OTHR DR: Humaira David MD, Tahir MD Hampel, Nehemia MD La m,Roxana Pa MD, MD Latoya king MD, Faiza MDORDERED: GROSS COPIES TO: Tyson David MD [address] [place] [address] Justino Schmid MD [address] [place], [place] [id number] Patel Dimas MD [address] [place] [address] Payam Sadler MD [address] [place], [place] [address] Roxana Dow MD [address] [place], [place] [address] [place] [address] [facility] [address] [place], [place] [id number] [place] [address] [place] [phone] CONTINUED ON NEXT PAGE RUN DATE: 04/03/18 [facility] PAGE 2 RUN TIME: 1625 Specimen Inquiry RUN USER: INTERFACE SPEC #: [id number] PATIENT: LINSEY BEE #[id number] (Continued)------- ----- PROCEDURES: GROSS (04/03/18-1623) TISSUES: URINARY BLADDER, NOS - STONES CLINICAL HISTORY COLLECTION DATE: 04/02/18 HYDRONEPHROSI S STENT AND STONES FINAL DIAGNOSIS Urinary bladder stones, removal: CALCULOUS MATERIAL (GROSS IDENTIFICATION) RRB/ D [address]309 MACROSCOPIC The specimen is received without fixative in a container l abeled with the patient's name and identified as "bladder stones". The specim en consists of fragments of dark jones-cortez calculous material measuring 0.6 X 0 .3 X 0.3 cm in aggregate. The specimen is submitted for chemical analysis. GROSS PERFORMED AT [facility] [address] [facility], [place] [address] [phone])[phone] Signed SIGNATURE O Alize VILLASEÑOR Vin Lozano 04/03/18 1625 END OF REPORT [id number] 12:30:00* Test Item Value Reference Range Comments GLUBED (test code=GLUBED) 121 mg/dL 74-106 Performed by certified zmt operator at [facility] [id number] 08:27:00* Test Item Value Reference Range Comments GLUBED (test code=GLUBED) 75 mg/dL 74-106 Performed by certified zmt operator at [facility] BASIC METABOLIC [id number] 05:43:00* Test Item Value Reference Range Comments SODIUM (test code=NA) 141 mmol/L 136-145 POTASSIUM (test code=K) 3.8 mmol/L 3.5-5.1 CHLORIDE (test code=CL) 107.0 mmol/L 98-107 CARBON DIOXIDE (test code=CO2) 25.0 mmol/L 21-32 ANION GAP (test code=GAP) 12.8 10-20 GLUCOSE (test code=GLU) 218 mg/dL 74-106 BLOOD UREA NITROGEN (test code=BUN) 23 mg/dL 7-18 GLOMERULAR FILTRATION RATE (test code=GFR) 21 mL/min >=60 Estimated GFR by using Modified MDRD formula.Chronic kidney disease is defined as either kidney damageor GFR <60 mL/min/1.73 m2 for >3 months. CREATININE (test code=CREAT) 3.20 mg/dL 0.7-1.3 BUN/CREATININE RATIO (test code=BUN/CREA) 7.3 10-20 CALCIUM (test code=CA) 7.1 mg/dL 8.5-10.1 [id number] 05:43:00* Test Item Value Reference Range Comments PHOSPHORUS (test code=PHOS) 3.3 mg/dL 2.5-4.9 [id number] 05:43:00* Test Item Value Reference Range Comments MAGNESIUM (test code=MAG) 1.3 mg/dL 1.8-2.4 CALCIUM [id number] 05:43:00* Test Item Value Reference Range Comments CALCIUM IONIZED (test code=JUVENAL) 1.09 mmol/L 1.12-1.32 BASIC METABOLIC [id number] 05:40:00* Test Item Value Reference Range Comments SODIUM (test code=NA) 141 mmol/L 136-145 POTASSIUM (test code=K) 3.8 mmol/L 3.5-5.1 CHLORIDE (test code=CL) 107.0 mmol/L 98-107 CARBON DIOXIDE (test code=CO2) mmol/L 21-32 ANION GAP (test code=GAP) 10-20 GLUCOSE (test code=GLU) mg/dL 74-106 BLOOD UREA NITROGEN (test code=BUN) mg/dL 7-18 GLOMERULAR FILTRATION RATE (test code=GFR) mL/min >=60 CREATININE (test code=CREAT) mg/dL 0.7-1.3 BUN/CREATININE RATIO (test code=BUN/CREA) 10-20 CALCIUM (test code=CA) mg/dL 8.5-10.1 [id number] 05:40:00* Test Item Value Reference Range Comments PHOSPHORUS (test code=PHOS) mg/dL 2.5-4.9 [id number] 05:40:00* Test Item Value Reference Range Comments MAGNESIUM (test code=MAG) mg/dL 1.8-2.4 CALCIUM [id number] 05:40:00* Test Item Value Reference Range Comments CALCIUM IONIZED (test code=JUVENAL) 1.09 mmol/L 1.12-1.32 BASIC METABOLIC [id number] 05:34:00* Test Item Value Reference Range Comments SODIUM (test code=NA) 141 mmol/L 136-145 POTASSIUM (test code=K) 3.8 mmol/L 3.5-5.1 CHLORIDE (test code=CL) 107.0 mmol/L 98-107 CARBON DIOXIDE (test code=CO2) mmol/L 21-32 ANION GAP (test code=GAP) 10-20 GLUCOSE (test code=GLU) mg/dL 74-106 BLOOD UREA NITROGEN (test code=BUN) mg/dL 7-18 GLOMERULAR FILTRATION RATE (test code=GFR) mL/min >=60 CREATININE (test code=CREAT) mg/dL 0.7-1.3 BUN/CREATININE RATIO (test code=BUN/CREA) 10-20 CALCIUM (test code=CA) mg/dL 8.5-10.1 [id number] 05:34:00* Test Item Value Reference Range Comments PHOSPHORUS (test code=PHOS) mg/dL 2.5-4.9 [id number] 05:34:00* Test Item Value Reference Range Comments MAGNESIUM (test code=MAG) mg/dL 1.8-2.4 CALCIUM [id number] 05:34:00* Test Item Value Reference Range Comments CALCIUM IONIZED (test code=JUVENAL) mmol/L 1.12-1.32 [id number] 22:12:00* Test Item Value Reference Range Comments GLUBED (test code=GLUBED) 245 mg/dL 74-106 Performed by certified zmt operator at [facility] PROTEIN ELECTROPHORESIS [id number] 12:12:00* Test Item Value Reference Range Comments TOTAL PROTEIN (test code=PROTE) 5.7 g/dL 6.0-8.5 ALBUMIN (test code=ALBE) 3.1 g/dL 2.9-4.4 [id number]-7-[id number] (test code=A1G) 0.1 g/dL 0.0-0.4 IOSXJ-5-LVFPRHZQ (test code=A2G) 0.6 g/dL 0.4-1.0 BETA GLOBULIN (test code=BG) 0.9 g/dL 0.7-1.3 GAMMA GLOBULIN (test code=GG) 1.0 g/dL 0.4-1.8 M-SPIKE,SERUM (test code=MSPIKES) Not Observed g/dL Not Observed GLOBULIN ELECT (test code=GLOBE) 2.6 g/dL 2.2-3.9 INTERPRETATION (test code=ELEINT) () The SPE pattern appears essentially unremarkable. Evidenceof monoclonal protein is not apparent.Performed At: [facility] [address] [place], [place] [address] Herminio Rodriguez MD Ph:[phone] rformed At: [facility] [address] [facility] [address] [place], [place] [id number] CN MD Ph:[phone] KAPPA LAMBDA [id number] 12:12:00* Test Item Value Reference Range Comments KAPPA CHAINS (FLOW) (test code=KAPPA) 72.2 mg/L 3.3-19.4 LAMBDA CHAINS (FLOW) (test code=LAMBDA) 39.7 mg/L 5.7-26.3 KAPPA/LAMBDA RATIO (test code=AILEEN/SADLER) 1.82 0.26-1.65 Performed At: DA [facility] [address] [facility] [address] [place], [place] [id number] CN MD Ph:[phone] [id number] 08:44:00* Test Item Value Reference Range Comments GLUBED (test code=GLUBED) 91 mg/dL 74-106 [facility]formed [facility] certified [facility] BASIC METABOLIC [id number] 05:47:00* Test Item Value Reference Range Comments SODIUM (test code=NA) 142 mmol/L 136-145 POTASSIUM (test code=K) 4.1 mmol/L 3.5-5.1 CHLORIDE (test code=CL) 107.0 mmol/L 98-107 CARBON DIOXIDE (test code=CO2) 27.0 mmol/L 21-32 ANION GAP (test code=GAP) 12.1 10-20 GLUCOSE (test code=GLU) 193 mg/dL 74-106 BLOOD UREA NITROGEN (test code=BUN) 34 mg/dL 7-18 RESULT VERIFIED BY REPEAT ANALYSIS GLOMERULAR FILTRATION RATE (test code=GFR) 15 mL/min >=60 Estimated GFR by using Modified MDRD formula.Chronic kidney disease is defined as either kidney damageor GFR <60 mL/min/1.73 m2 for >3 months. CREATININE (test code=CREAT) 4.20 mg/dL 0.7-1.3 BUN/CREATININE RATIO (test code=BUN/CREA) 8.1 10-20 CALCIUM (test code=CA) 6.6 mg/dL 8.5-10.1 [id number] 05:47:00* Test Item Value Reference Range Comments MAGNESIUM (test code=MAG) 1.3 mg/dL 1.8-2.4 CALCIUM [id number] 05:47:00* Test Item Value Reference Range Comments CALCIUM IONIZED (test code=JUVENAL) 1.11 mmol/L 1.12-1.32 BASIC METABOLIC [id number] 05:08:00* Test Item Value Reference Range Comments SODIUM (test code=NA) 142 mmol/L 136-145 POTASSIUM (test code=K) 4.1 mmol/L 3.5-5.1 CHLORIDE (test code=CL) 107.0 mmol/L 98-107 CARBON DIOXIDE (test code=CO2) mmol/L 21-32 ANION GAP (test code=GAP) 10-20 GLUCOSE (test code=GLU) mg/dL 74-106 BLOOD UREA NITROGEN (test code=BUN) mg/dL 7-18 GLOMERULAR FILTRATION RATE (test code=GFR) mL/min >=60 CREATININE (test code=CREAT) mg/dL 0.7-1.3 BUN/CREATININE RATIO (test code=BUN/CREA) 10-20 CALCIUM (test code=CA) mg/dL 8.5-10.1 [id number] 05:08:00* Test Item Value Reference Range Comments MAGNESIUM (test code=MAG) mg/dL 1.8-2.4 CALCIUM [id number] 05:08:00* Test Item Value Reference Range Comments CALCIUM IONIZED (test code=JUVENAL) 1.11 mmol/L 1.12-1.32 BASIC METABOLIC [id number] 04:59:00* Test Item Value Reference Range Comments SODIUM (test code=NA) mmol/L 136-145 POTASSIUM (test code=K) mmol/L 3.5-5.1 CHLORIDE (test code=CL) mmol/L 98-107 CARBON DIOXIDE (test code=CO2) mmol/L 21-32 ANION GAP (test code=GAP) 10-20 GLUCOSE (test code=GLU) mg/dL 74-106 BLOOD UREA NITROGEN (test code=BUN) mg/dL 7-18 GLOMERULAR FILTRATION RATE (test code=GFR) mL/min >=60 CREATININE (test code=CREAT) mg/dL 0.7-1.3 BUN/CREATININE RATIO (test code=BUN/CREA) 10-20 CALCIUM (test code=CA) mg/dL 8.5-10.1 [id number] 04:59:00* Test Item Value Reference Range Comments MAGNESIUM (test code=MAG) mg/dL 1.8-2.4 CALCIUM [id number] 04:59:00* Test Item Value Reference Range Comments CALCIUM IONIZED (test code=JUVENAL) 1.11 mmol/L 1.12-1.32 [id number] 20:50:00* Test Item Value Reference Range Comments GLUBED (test code=GLUBED) 103 mg/dL 74-106 Performed by certified zmt operator at [facility] [id number] 17:44:00* Test Item Value Reference Range Comments GLUBED (test code=GLUBED) 297 mg/dL 74-106 Performed by certified zmt operator at [facility] PROTEIN ELECTROPHORESIS [id number] 15:14:00* Test Item Value Reference Range Comments TOTAL PROTEIN (test code=PROTE) gram/dL 6.0-8.5 ALBUMIN (test code=ALBE) gram/dL 2.9-4.4 [id number]-3-[id number] (test code=A1G) 0.0-0.4 [id number]-9-[id number] (test code=A2G) gram/dL 0.4-1.0 BETA GLOBULIN (test code=BG) gram/dL 0.7-1.3 GAMMA GLOBULIN (test code=GG) gram/dL 0.4-1.8 M-SPIKE,SERUM (test code=MSPIKES) Not Observe GLOBULIN ELECT (test code=GLOBE) 2.2-3.9 KAPPA LAMBDA [id number] 15:14:00* Test Item Value Reference Range Comments KAPPA CHAINS (FLOW) (test code=KAPPA) 72.2 mg/L 3.3-19.4 LAMBDA CHAINS (FLOW) (test code=LAMBDA) 39.7 mg/L 5.7-26.3 KAPPA/LAMBDA RATIO (test code=AILEEN/SADLER) 1.82 0.26-1.65 Performed At: DA [facility] [address] [facility] [address] [place], [place] [address]Sgkxpwy CN MD Ph:[phone] [id number] 12:16:00* Test Item Value Reference Range Comments GLUBED (test code=GLUBED) 187 mg/dL 74-106 Performed by certified zmt operator at [facility] CBC W/AUTO [id number] 11:01:00* Test Item Value Reference Range Comments WHITE BLOOD CELL (test code=WBC) 8.5 K/mm3 4.5-12.5 RED BLOOD CELL (test code=RBC) 2.54 mill/mm3 4.0-5.8 HEMOGLOBIN (test code=HGB) 7.4 gram/dL 13.0-17.5 HEMATOCRIT (test code=HCT) 22.5 % 42.0-52.0 MEAN CELL VOLUME (test code=MCV) 88.6 fL 80-98 MEAN CELL HGB (test code=MCH) 29.1 picogram 27.0-33.0 MEAN CELL HGB CONCETRATION (test code=MCHC) 32.9 gram/dL 33.0-36.0 RED CELL DISTRIBUTION WIDTH (test code=RDW) 14.4 % 11.6-16.2 RED CELL DISTRIBUTION WIDTH SD (test code=RDW-SD) 45.0 fL 37.0-51.0 PLATELET COUNT (test code=PLT) 220 K/mm3 150-450 MEAN PLATELET VOLUME (test code=MPV) 9.5 fL 6.7-11.0 NEUTROPHIL % (test code=NT%) 72.8 % 39.0-69.0 IMMATURE GRANULOCYTE % (test code=IG%) 1.4 % 0.0-5.0 LYMPHOCYTE % (test code=LY%) 14.9 % 25.0-55.0 MONOCYTE % (test code=MO%) 8.5 % 0.0-10.0 EOSINOPHIL % (test code=EO%) 2.2 % 0.0-5.0 BASOPHIL % (test code=BA%) 0.2 % 0.0-1.0 NUCLEATED RBC % (test code=NRBC%) 0.0 % 0-0 NEUTROPHIL # (test code=NT#) 6.20 K/mm3 1.8-7.7 IMMATURE GRANULOCYTE # (test code=IG#) 0.12 x10 3/uL 0-0.03 LYMPHOCYTE # (test code=LY#) 1.27 K/mm3 1.0-5.0 MONOCYTE # (test code=MO#) 0.72 K/mm3 0-0.8 EOSINOPHIL # (test code=EO#) 0.19 K/mm3 0.0-0.5 BASOPHIL # (test code=BA#) 0.02 K/mm3 0.0-0.2 NUCLEATED RBC # (test code=NRBC#) 0.00 K/mm3 0.0-0.1 MANUAL DIFF REQUIRED (test code=MDIFF) NO BASIC METABOLIC [id number] 07:45:00* Test Item Value Reference Range Comments SODIUM (test code=NA) 141 mmol/L 136-145 POTASSIUM (test code=K) 2.7 mmol/L 3.5-5.1 Results called to [id number] by [email or web address] 04/01/18 0740Critical results verified and read back by Nurse? Y CHLORIDE (test code=CL) 104.0 mmol/L 98-107 CARBON DIOXIDE (test code=CO2) 26.0 mmol/L 21-32 ANION GAP (test code=GAP) 13.7 10-20 GLUCOSE (test code=GLU) 89 mg/dL 74-106 BLOOD UREA NITROGEN (test code=BUN) 25 mg/dL 7-18 GLOMERULAR FILTRATION RATE (test code=GFR) 17 mL/min >=60 Estimated GFR by using Modified MDRD formula.Chronic kidney disease is defined as either kidney damageor GFR <60 mL/min/1.73 m2 for >3 months. CREATININE (test code=CREAT) 3.80 mg/dL 0.7-1.3 BUN/CREATININE RATIO (test code=BUN/CREA) 6.5 10-20 CALCIUM (test code=CA) 7.0 mg/dL 8.5-10.1 [id number] 07:45:00* Test Item Value Reference Range Comments PHOSPHORUS (test code=PHOS) 2.9 mg/dL 2.5-4.9 [id number] 07:45:00* Test Item Value Reference Range Comments MAGNESIUM (test code=MAG) 1.8 mg/dL 1.8-2.4 CALCIUM [id number] 07:45:00* Test Item Value Reference Range Comments CALCIUM IONIZED (test code=JUVENAL) 1.09 mmol/L 1.12-1.32 [id number] 07:35:00* Test Item Value Reference Range Comments GLUBED (test code=GLUBED) 96 mg/dL 74-106 Performed by certified zmt operator at [facility] BASIC METABOLIC [id number] 07:19:00* Test Item Value Reference Range Comments SODIUM (test code=NA) mmol/L 136-145 POTASSIUM (test code=K) mmol/L 3.5-5.1 CHLORIDE (test code=CL) mmol/L 98-107 CARBON DIOXIDE (test code=CO2) 26.0 mmol/L 21-32 ANION GAP (test code=GAP) 10-20 GLUCOSE (test code=GLU) 89 mg/dL 74-106 BLOOD UREA NITROGEN (test code=BUN) 25 mg/dL 7-18 GLOMERULAR FILTRATION RATE (test code=GFR) 17 mL/min >=60 Estimated GFR by using Modified MDRD formula.Chronic kidney disease is defined as either kidney damageor GFR <60 mL/min/1.73 m2 for >3 months. CREATININE (test code=CREAT) 3.80 mg/dL 0.7-1.3 BUN/CREATININE RATIO (test code=BUN/CREA) 6.5 10-20 CALCIUM (test code=CA) 7.0 mg/dL 8.5-10.1 [id number] 07:19:00* Test Item Value Reference Range Comments PHOSPHORUS (test code=PHOS) 2.9 mg/dL 2.5-4.9 [id number] 07:19:00* Test Item Value Reference Range Comments MAGNESIUM (test code=MAG) 1.8 mg/dL 1.8-2.4 CALCIUM [id number] 07:19:00* Test Item Value Reference Range Comments CALCIUM IONIZED (test code=JUVENAL) 1.09 mmol/L 1.12-1.32 BASIC METABOLIC [id number] 06:54:00* Test Item Value Reference Range Comments SODIUM (test code=NA) mmol/L 136-145 POTASSIUM (test code=K) mmol/L 3.5-5.1 CHLORIDE (test code=CL) mmol/L 98-107 CARBON DIOXIDE (test code=CO2) mmol/L 21-32 ANION GAP (test code=GAP) 10-20 GLUCOSE (test code=GLU) mg/dL 74-106 BLOOD UREA NITROGEN (test code=BUN) mg/dL 7-18 GLOMERULAR FILTRATION RATE (test code=GFR) mL/min >=60 CREATININE (test code=CREAT) mg/dL 0.7-1.3 BUN/CREATININE RATIO (test code=BUN/CREA) 10-20 CALCIUM (test code=CA) mg/dL 8.5-10.1 [id number] 06:54:00* Test Item Value Reference Range Comments PHOSPHORUS (test code=PHOS) mg/dL 2.5-4.9 [id number] 06:54:00* Test Item Value Reference Range Comments MAGNESIUM (test code=MAG) mg/dL 1.8-2.4 CALCIUM [id number] 06:54:00* Test Item Value Reference Range Comments CALCIUM IONIZED (test code=JUVENAL) 1.09 mmol/L 1.12-1.32 [id number] 20:41:00* Test Item Value Reference Range Comments GLUBED (test code=GLUBED) 269 mg/dL 74-106 Performed by certified zmt operator at [facility] [id number] 16:48:00* Test Item Value Reference Range Comments GLUBED (test code=GLUBED) 121 mg/dL 74-106 Performed by certified zmt operator at [facility] [id number] 15:45:00* Test Item Value Reference Range Comments GLUBED (test code=GLUBED) 114 mg/dL 74-106 Performed by certified zmt operator at [facility] LACTIC [id number] 11:26:00* Test Item Value Reference Range Comments LACTIC ACID (test code=LACT) 1.6 mmol/L 0.4-1.9 [id number] 08:57:00* Test Item Value Reference Range Comments GLUBED (test code=GLUBED) 126 mg/dL 74-106 Performed by certified zmt operator at [facility] BASIC METABOLIC [id number] 08:16:00* Test Item Value Reference Range Comments SODIUM (test code=NA) 137 mmol/L 136-145 POTASSIUM (test code=K) 2.5 mmol/L 3.5-5.1 Results called to [id number] by JULISA 03/31/18 0813Critical results verified and read back by Nurse? Y CHLORIDE (test code=CL) 106.0 mmol/L 98-107 CARBON DIOXIDE (test code=CO2) 20.0 mmol/L 21-32 ANION GAP (test code=GAP) 13.5 10-20 GLUCOSE (test code=GLU) 264 mg/dL 74-106 BLOOD UREA NITROGEN (test code=BUN) 28 mg/dL 7-18 GLOMERULAR FILTRATION RATE (test code=GFR) 24 mL/min >=60 Estimated GFR by using Modified MDRD formula.Chronic kidney disease is defined as either kidney damageor GFR <60 mL/min/1.73 m2 for >3 months. CREATININE (test code=CREAT) 2.90 mg/dL 0.7-1.3 BUN/CREATININE RATIO (test code=BUN/CREA) 9.7 10-20 CALCIUM (test code=CA) 6.8 mg/dL 8.5-10.1 [id number] 08:16:00* Test Item Value Reference Range Comments PHOSPHORUS (test code=PHOS) 3.2 mg/dL 2.5-4.9 [id number] 08:16:00* Test Item Value Reference Range Comments MAGNESIUM (test code=MAG) 0.9 mg/dL 1.8-2.4 Results called to [id number] by [facility] 03/31/18 0813Critical results verified and read back by Nurse? Y CALCIUM [id number] 08:16:00* Test Item Value Reference Range Comments CALCIUM IONIZED (test code=JUVENAL) 1.12 mmol/L 1.12-1.32 LACTIC [id number] 08:12:00* Test Item Value Reference Range Comments LACTIC ACID (test code=LACT) 2.2 mmol/L 0.4-1.9 Results called to [id number] by [facility] 03/31/18 0811Critical results verified and read back by Nurse? Y UR NA,[id number] 07:46:00* Test Item Value Reference Range Comments UR NA,RANDOM (test code=CONNIE) 22 mmol/L 20-110 UR CREATININE [id number] 07:46:00* Test Item Value Reference Range Comments UR CREATININE RANDOM (test code=CREATU) 26.0 mg/dL 30-125 BASIC METABOLIC [id number] 07:34:00* Test Item Value Reference Range Comments SODIUM (test code=NA) mmol/L 136-145 POTASSIUM (test code=K) mmol/L 3.5-5.1 CHLORIDE (test code=CL) mmol/L 98-107 CARBON DIOXIDE (test code=CO2) mmol/L 21-32 ANION GAP (test code=GAP) 10-20 GLUCOSE (test code=GLU) mg/dL 74-106 BLOOD UREA NITROGEN (test code=BUN) mg/dL 7-18 GLOMERULAR FILTRATION RATE (test code=GFR) mL/min >=60 CREATININE (test code=CREAT) mg/dL 0.7-1.3 BUN/CREATININE RATIO (test code=BUN/CREA) 10-20 CALCIUM (test code=CA) mg/dL 8.5-10.1 [id number] 07:34:00* Test Item Value Reference Range Comments PHOSPHORUS (test code=PHOS) mg/dL 2.5-4.9 [id number] 07:34:00* Test Item Value Reference Range Comments MAGNESIUM (test code=MAG) mg/dL 1.8-2.4 CALCIUM [id number] 07:34:00* Test Item Value Reference Range Comments CALCIUM IONIZED (test code=JUVENAL) 1.12 mmol/L 1.12-1.32 CBC W/O [id number] 05:52:00* Test Item Value Reference Range Comments WHITE BLOOD CELL (test code=WBC) 10.5 K/mm3 4.5-12.5 RED BLOOD CELL (test code=RBC) 2.75 mill/mm3 4.0-5.8 HEMOGLOBIN (test code=HGB) 8.0 gram/dL 13.0-17.5 HEMATOCRIT (test code=HCT) 23.9 % 42.0-52.0 MEAN CELL VOLUME (test code=MCV) 86.9 fL 80-98 MEAN CELL HGB (test code=MCH) 29.1 picogram 27.0-33.0 MEAN CELL HGB CONCETRATION (test code=MCHC) 33.5 gram/dL 33.0-36.0 RED CELL DISTRIBUTION WIDTH (test code=RDW) 13.8 % 11.6-16.2 PLATELET COUNT (test code=PLT) 207 K/mm3 150-450 MEAN PLATELET VOLUME (test code=MPV) 9.0 fL 6.7-11.0 CBC W/AUTO [id number] 05:52:00* Test Item Value Reference Range Comments WHITE BLOOD CELL (test code=WBC) 10.3 K/mm3 4.5-12.5 RED BLOOD CELL (test code=RBC) 2.74 mill/mm3 4.0-5.8 HEMOGLOBIN (test code=HGB) 8.0 gram/dL 13.0-17.5 HEMATOCRIT (test code=HCT) 23.5 % 42.0-52.0 MEAN CELL VOLUME (test code=MCV) 85.8 fL 80-98 MEAN CELL HGB (test code=MCH) 29.2 picogram 27.0-33.0 MEAN CELL HGB CONCETRATION (test code=MCHC) 34.0 gram/dL 33.0-36.0 RED CELL DISTRIBUTION WIDTH (test code=RDW) 13.7 % 11.6-16.2 RED CELL DISTRIBUTION WIDTH SD (test code=RDW-SD) 42.0 fL 37.0-51.0 PLATELET COUNT (test code=PLT) 203 K/mm3 150-450 MEAN PLATELET VOLUME (test code=MPV) 9.2 fL 6.7-11.0 NEUTROPHIL % (test code=NT%) 80.2 % 39.0-69.0 IMMATURE GRANULOCYTE % (test code=IG%) 1.5 % 0.0-5.0 LYMPHOCYTE % (test code=LY%) 9.6 % 25.0-55.0 MONOCYTE % (test code=MO%) 7.2 % 0.0-10.0 EOSINOPHIL % (test code=EO%) 1.3 % 0.0-5.0 BASOPHIL % (test code=BA%) 0.2 % 0.0-1.0 NUCLEATED RBC % (test code=NRBC%) 0.0 % 0-0 NEUTROPHIL # (test code=NT#) 8.23 K/mm3 1.8-7.7 IMMATURE GRANULOCYTE # (test code=IG#) 0.15 x10 3/uL 0-0.03 LYMPHOCYTE # (test code=LY#) 0.99 K/mm3 1.0-5.0 MONOCYTE # (test code=MO#) 0.74 K/mm3 0-0.8 EOSINOPHIL # (test code=EO#) 0.13 K/mm3 0.0-0.5 BASOPHIL # (test code=BA#) 0.02 K/mm3 0.0-0.2 NUCLEATED RBC # (test code=NRBC#) 0.00 K/mm3 0.0-0.1 [id number] 20:45:00* Test Item Value Reference Range Comments GLUBED (test code=GLUBED) 226 mg/dL 74-106 Performed by certified zmt operator at [facility] FE W/TOTAL IRON BINDING CAP.2018-03-30 20:03:00* Test Item Value Reference Range Comments SERUM IRON (test code=IRON) 116 ug/dL 50-175 TOTAL IRON BINDING CAPACITY (test code=TIBC) 254 mcg/dL 250-450 IRON SATURATION (test code=FESAT) 45.67 % 13-45 VITAMIN [id number] 20:03:00* Test Item Value Reference Range Comments VITAMIN B12 (test code=VITB12) 243 pg/mL 193-986 FOLIC [id number] 20:03:00* Test Item Value Reference Range Comments FOLIC ACID (test code=FOL) 6.7 ng/mL 3.10-17.50 [id number] 20:03:00* Test Item Value Reference Range Comments FERRITIN (test code=ANABELLE) 141 ng/mL 8-388 [id number] 12:11:00* Test Item Value Reference Range Comments GLUBED (test code=GLUBED) 114 mg/dL 74-106 [facility] COMPREHENSIVE METABOLIC [id number] 09:21:00* Test Item Value Reference Range Comments SODIUM (test code=NA) 136 mmol/L 136-145 POTASSIUM (test code=K) 3.0 mmol/L 3.5-5.1 Results called to by JENNIFER 03/30/18 0920Critical results verified and read back by Nurse? CHLORIDE (test code=CL) 109.0 mmol/L 98-107 CARBON DIOXIDE (test code=CO2) 14.0 mmol/L 21-32 ANION GAP (test code=GAP) 16.0 10-20 GLUCOSE (test code=GLU) 106 mg/dL 74-106 BLOOD UREA NITROGEN (test code=BUN) 30 mg/dL 7-18 GLOMERULAR FILTRATION RATE (test code=GFR) 23 mL/min >=60 Estimated GFR by using Modified MDRD formula.Chronic kidney disease is defined as either kidney damageor GFR <60 mL/min/1.73 m2 for >3 months. CREATININE (test code=CREAT) 3.00 mg/dL 0.7-1.3 BUN/CREATININE RATIO (test code=BUN/CREA) 9.9 10-20 TOTAL PROTEIN (test code=PROT) 6.9 gram/dL 6.4-8.2 ALBUMIN (test code=ALB) 3.0 g/dL 3.4-5.0 GLOBULIN (test code=GLOB) 3.9 gram/dL 2.7-4.2 ALBUMIN/GLOBULIN RATIO (test code=A/G) 0.8 0.75-1.50 CALCIUM (test code=CA) 7.1 mg/dL 8.5-10.1 BILIRUBIN TOTAL (test code=BILT) 0.20 mg/dL 0.0-1.0 SGOT/AST (test code=AST) 25 IUnit/L 15-37 SGPT/ALT (test code=ALT) 29 IUnit/L 12-78 ALKALINE PHOSPHATASE TOTAL (test code=ALKP) 85 IUnit/L 45-117 Note change in reference range due to change in reagent. COMPREHENSIVE METABOLIC [id number] 09:20:00* Test Item Value Reference Range Comments SODIUM (test code=NA) 136 mmol/L 136-145 POTASSIUM (test code=K) 3.0 mmol/L 3.5-5.1 Results called to by JENNIFER 03/30/18 0920Critical results verified and read back by Nurse? CHLORIDE (test code=CL) 109.0 mmol/L 98-107 CARBON DIOXIDE (test code=CO2) mmol/L 21-32 ANION GAP (test code=GAP) 10-20 GLUCOSE (test code=GLU) mg/dL 74-106 BLOOD UREA NITROGEN (test code=BUN) mg/dL 7-18 GLOMERULAR FILTRATION RATE (test code=GFR) mL/min >=60 CREATININE (test code=CREAT) mg/dL 0.7-1.3 BUN/CREATININE RATIO (test code=BUN/CREA) 10-20 TOTAL PROTEIN (test code=PROT) gram/dL 6.4-8.2 ALBUMIN (test code=ALB) g/dL 3.4-5.0 GLOBULIN (test code=GLOB) gram/dL 2.7-4.2 ALBUMIN/GLOBULIN RATIO (test code=A/G) 0.75-1.50 CALCIUM (test code=CA) mg/dL 8.5-10.1 BILIRUBIN TOTAL (test code=BILT) mg/dL 0.0-1.0 SGOT/AST (test code=AST) IUnit/L 15-37 SGPT/ALT (test code=ALT) IUnit/L 12-78 ALKALINE PHOSPHATASE TOTAL (test code=ALKP) IUnit/L 45-117 CBC W/AUTO [id number] 08:53:00* Test Item Value Reference Range Comments WHITE BLOOD CELL (test code=WBC) 8.5 K/mm3 4.5-12.5 RED BLOOD CELL (test code=RBC) 2.90 mill/mm3 4.0-5.8 HEMOGLOBIN (test code=HGB) 8.5 gram/dL 13.0-17.5 HEMATOCRIT (test code=HCT) 25.2 % 42.0-52.0 MEAN CELL VOLUME (test code=MCV) 86.9 fL 80-98 MEAN CELL HGB (test code=MCH) 29.3 picogram 27.0-33.0 MEAN CELL HGB CONCETRATION (test code=MCHC) 33.7 gram/dL 33.0-36.0 RED CELL DISTRIBUTION WIDTH (test code=RDW) 13.6 % 11.6-16.2 RED CELL DISTRIBUTION WIDTH SD (test code=RDW-SD) 42.8 fL 37.0-51.0 PLATELET COUNT (test code=PLT) 216 K/mm3 150-450 RESULT VERIFIED BY REPEAT ANALYSIS MEAN PLATELET VOLUME (test code=MPV) 9.0 fL 6.7-11.0 NEUTROPHIL % (test code=NT%) 72.4 % 39.0-69.0 IMMATURE GRANULOCYTE % (test code=IG%) 0.9 % 0.0-5.0 LYMPHOCYTE % (test code=LY%) 16.0 % 25.0-55.0 MONOCYTE % (test code=MO%) 8.6 % 0.0-10.0 EOSINOPHIL % (test code=EO%) 1.9 % 0.0-5.0 BASOPHIL % (test code=BA%) 0.2 % 0.0-1.0 NUCLEATED RBC % (test code=NRBC%) 0.0 % 0-0 NEUTROPHIL # (test code=NT#) 6.15 K/mm3 1.8-7.7 IMMATURE GRANULOCYTE # (test code=IG#) 0.08 x10 3/uL 0-0.03 LYMPHOCYTE # (test code=LY#) 1.36 K/mm3 1.0-5.0 MONOCYTE # (test code=MO#) 0.73 K/mm3 0-0.8 EOSINOPHIL # (test code=EO#) 0.16 K/mm3 0.0-0.5 BASOPHIL # (test code=BA#) 0.02 K/mm3 0.0-0.2 NUCLEATED RBC # (test code=NRBC#) 0.00 K/mm3 0.0-0.1 - CT ABD PELVIS [id number] 02:35:00 Name: [facility] : 1975 Age/S: 42 / M [address] [facility] Unit #: [id number] Loc: [place] [address] Phys: Kory Jerome MD Acct: [id number] Dis Date: Status: ADM IN PHONE #: [phone] Exam Date: 03/30/2018 0213 FAX #: [phone] Reason: INFECTED STOMA ABDOMINAL PAIN EXAMS: CPT CODE: [id number] CT ABD PELVIS W/CONT 15660 AFTER HOURS SERVICE ON: 03/30/2018 2:[address] Scan of the Abdomen and Pelvis With Contrast Location Code M12 History: INFECTED STOMA ABDOMINAL PAIN Technique: Axial and reconstructed coronal scans were performed on a helical scanner post IV contrast. Delayed scans were also obtained. One or more of the following dose reduction techniques were used: Automated exposure control, adjustment of the mA and/or kV according to patient size, and/or utilization of iterative reconstruction technique. Findings: There are several small subcentimeter bilateral pulmonary nodules compared to prior of 09/22/2016. Gallbladder is contracted. Multiple gallstones in the gallbladder neck are again seen. There are no peripancreatic inflammatory changes. No abnormal liver or splenic enhancement. Adrenal glands are symmetric. There is moderate left and severe right hydronephrosis. On the left, there is an 8 mm and a 14 mm UVJ calculi. On the right, there is a double-J ureteral stent. A 7 mm bladder calculus is seen near the stent tip within the bladder. The proximal end of the stent lies in the UPJ. There is no evidence of pyelonephritis. There is no bladder wall thickening. There is no pelvic free fluid. Streak artifact is noted in the pelvis from prior surgical repair. There is a right lower quadrant ostomy with a nonobstructed parastomal hernia containing opacified small bowel loops measuring 3.6 x 2.2 cm. No evidence of bowel obstruction. Right colon is not visualized. The appendix is not visualized. Impre ssion: Severe right hydronephrosis. Double-J ureteral stent i n place. Proximal end of the stent is in the UPJ. Distal end of the st ent lies in the bladder with a 7 mm possibly obstructing calculus at the stent tip. PAGE 1 Signed Report (CONTINUED) Name: [facility] : 1975 Age/S: 42 / M [address] [facility] Unit #: [id number] Loc: [place] [address] Phys: Kory Jerome MD Acct: [id number] Dis Date: Status: ADM IN PHONE #: [phone] Exam Date: 03/30/2018 021 FAX #: [phone] Reason: INFECTED STOMA ABDOMINAL PAIN EXAMS: CPT CODE: [id number] ABD PELVIS W/CONT 01674 <Continued> Moderate left hydronephrosis due to 14 mm and 8mm UVJ calcul i. Multiple gallstones in the gallbladder neck. Gallbladder i s contracted. Postsurgical changes in the bowel. Smal l right lower quadrant parastomal hernia. No bowel obstruction. at 0235 Reported and signed by: Whitney Flowers M.D. CC: Kory Jerome MD Technologist:KENNEY QUINTANILLA RTGideon William CTDI: ISIP: Trnjayneb Date/Time: 03/30/2018 (234) Bryan A50 Orig Print D/T: S: 03/30/2018 (237) CTDI: DLP: PAGE 2 Signed [facility] - [id number] 01:04:00 Name: [facility] : 1975 Age/S: 42 / M Radha [place] P[facility] Unit #: [id number] Loc: [place] [address] Phys: Kory Jerome MD Acct: [id number] Dis Date: Status: ADM IN PHONE #: [phone] Exam Date: 03/30/2018 0047 FAX #: [phone] Reason: ABD PAIN EXAMS: CPT CODE: [id number] RETRO LTD 48492 Retroperitoneal ultrasound. Comparison: CT performed May 03, 2017 Location: R16 History: None available. Technique and Findings: Grayscale and color Doppler ultrasound of the kidneys and bladder region were performed. The right kidney measures 12.8 cm. There is severe right hydronephrosis. A nephroureteral stent is seen. The left kidney measures 13 cm. Severe left hydronephrosis is seen.. The bladder is distended. It demonstrates no wall thickening or focal lesions. Questionable ureteral jet is seen on the left. No right-sided is visualized. There is questionable echogenic density, possibly representin g a thrombus, seen along the tip of the right ureteral stent. Impression: 1. Bilateral severe hydronephrosis 2.There is q uestionable echogenic density, possibly representing a thrombus, seen al amol the tip of the right ureteral stent within the bladder at 0104 Reported and sig dillon by: Maru Hill M.D. CC: Kory Jerome MD Technologist: OLAF HYLTON SCIGOR Trnmdb Date/Time: 03/30/2018 (010) [email or web address] Orig Print D/T: S: 03/30/2018 (0108) Probe: PAGE 1 Signed Report B-TYPE NATRIURETIC [id number] 00:23:00* Test Item Value Reference Range Comments B-TYPE NATRIURETIC PEPTIDE (test code=BNP) 5.52 pgram/mL 0-100 Has Patient received Natrecor? NOC REACTIVE [id number] 00:16:00* Test Item Value Reference Range Comments C REACTIVE PROTEIN (test code=CRP) <0.29 mg/dL 0-0.3 [id number] 00:16:00* Test Item Value Reference Range Comments AMYLASE (test code=MATT) 234 Unit/L 25-115 [id number] 00:16:00* Test Item Value Reference Range Comments LIPASE (test code=LIP) 495 U/L 73.0-393.0 [id number] 00:16:00* Test Item Value Reference Range Comments GLYCOSYLATED HEMOGLOBIN (HA1C) (test code=GLYHGB) 6.0 % HbA1 4.8-6.0 ESTIMATED AVERAGE GLUCOSE (test code=EAG) 126 MG/DL COMPREHENSIVE METABOLIC [id number] 00:16:00* Test Item Value Reference Range Comments SODIUM (test code=NA) 140 mmol/L 136-145 POTASSIUM (test code=K) 3.4 mmol/L 3.5-5.1 CHLORIDE (test code=CL) 112.0 mmol/L 98-107 CARBON DIOXIDE (test code=CO2) 18.0 mmol/L 21-32 ANION GAP (test code=GAP) 13.4 10-20 GLUCOSE (test code=GLU) 127 mg/dL 74-106 BLOOD UREA NITROGEN (test code=BUN) 34 mg/dL 7-18 GLOMERULAR FILTRATION RATE (test code=GFR) 20 mL/min >=60 Estimated GFR by using Modified MDRD formula.Chronic kidney disease is defined as either kidney damageor GFR <60 mL/min/1.73 m2 for >3 months. CREATININE (test code=CREAT) 3.30 mg/dL 0.7-1.3 BUN/CREATININE RATIO (test code=BUN/CREA) 10.2 10-20 TOTAL PROTEIN (test code=PROT) 7.6 gram/dL 6.4-8.2 ALBUMIN (test code=ALB) 3.4 g/dL 3.4-5.0 GLOBULIN (test code=GLOB) 4.2 gram/dL 2.7-4.2 ALBUMIN/GLOBULIN RATIO (test code=A/G) 0.8 0.75-1.50 CALCIUM (test code=CA) 7.6 mg/dL 8.5-10.1 BILIRUBIN TOTAL (test code=BILT) 0.20 mg/dL 0.0-1.0 SGOT/AST (test code=AST) 27 IUnit/L 15-37 SGPT/ALT (test code=ALT) 30 IUnit/L 12-78 ALKALINE PHOSPHATASE TOTAL (test code=ALKP) 98 IUnit/L 45-117 Note change in reference range due to change in reagent. LIPID PROFILE (CORONARY RISK)2018-03-30 00:16:00* Test Item Value Reference Range Comments TRIGLYCERIDES (test code=TRIG) 95 mg/dL 20-150 CHOLESTEROL (test code=CHOL) 108 mg/dL 0-200 CHOLESTEROL/HDL RATIO (test code=CHOLHDL) 1.0 RATIO 0-4.9 RISK ASSOCIATED WITH CHOL/HDL RATIOS: Risk Male Female1/2 AVERAGE 3.43 3.27AVERAGE 4.97 4.442X AVERAGE 9.55 7.053X AVERAGE 23.39 11.04 REFERENCE VALUE IS RELATED TO RISK LEVELS ASRECOMMENDED BY THE PRO. HEART, LUNG, AND BLOOD INST. HDL CHOLESTEROL (test code=HDL) 82 mg/dL 40-60 LIPOPROTEIN LDL (test code=LDL) 27 mg/dL 100-129 Reference Interval: mg/dL mmol/L Optimal <100 <2.6Near/above optimal 100-129 2.6- 3.3Borderline High 130-159 3.4-4.1High 160-189 4.1-4.9Very High >=190 >=4.9=========This LDL result is a direct measurement.========= COMPREHENSIVE METABOLIC [id number] 00:06:00* Test Item Value Reference Range Comments SODIUM (test code=NA) 140 mmol/L 136-145 POTASSIUM (test code=K) 3.4 mmol/L 3.5-5.1 CHLORIDE (test code=CL) 112.0 mmol/L 98-107 CARBON DIOXIDE (test code=CO2) mmol/L 21-32 ANION GAP (test code=GAP) 10-20 GLUCOSE (test code=GLU) mg/dL 74-106 BLOOD UREA NITROGEN (test code=BUN) mg/dL 7-18 GLOMERULAR FILTRATION RATE (test code=GFR) mL/min >=60 CREATININE (test code=CREAT) mg/dL 0.7-1.3 BUN/CREATININE RATIO (test code=BUN/CREA) 10-20 TOTAL PROTEIN (test code=PROT) gram/dL 6.4-8.2 ALBUMIN (test code=ALB) g/dL 3.4-5.0 GLOBULIN (test code=GLOB) gram/dL 2.7-4.2 ALBUMIN/GLOBULIN RATIO (test code=A/G) 0.75-1.50 CALCIUM (test code=CA) mg/dL 8.5-10.1 BILIRUBIN TOTAL (test code=BILT) mg/dL 0.0-1.0 SGOT/AST (test code=AST) IUnit/L 15-37 SGPT/ALT (test code=ALT) IUnit/L 12-78 ALKALINE PHOSPHATASE TOTAL (test code=ALKP) IUnit/L 45-117 LIPID PROFILE (CORONARY RISK)2018-03-30 00:06:00* Test Item Value Reference Range Comments TRIGLYCERIDES (test code=TRIG) mg/dL 20-150 CHOLESTEROL (test code=CHOL) mg/dL 0-200 CHOLESTEROL/HDL RATIO (test code=CHOLHDL) RATIO 0-4.9 HDL CHOLESTEROL (test code=HDL) mg/dL 40-60 LIPOPROTEIN LDL (test code=LDL) mg/dL 100-129 URINALYSIS [id number] 23:57:00* Test Item Value Reference Range Comments UA COLOR (test code=COLU) STRAW YELLOW UA APPEARANCE (test code=APPU) CLEAR CLEAR UA GLUCOSE DIPSTICK (test code=DGLUU) NEGATIVE mg/dL NEGATIVE UA BILIRUBIN DIPSTICK (test code=BILU) NEGATIVE mg/dL NEGATIVE UA KETONE DIPSTICK (test code=KETU) Negative mg/dL NEGATIVE UA SPECIFIC GRAVITY (test code=SGU) 1.006 1.001-1.035 UA BLOOD DIPSTICK (test code=DAVID) 2+ (Moderate) NEGATIVE UA PH DIPSTICK (test code=HEATHER) 6.0 5.0-8.0 UA PROTEIN DIPSTICK (test code=PROU) 30 (1+) mg/dL NEGATIVE UA UROBILINIOGEN DIPSTICK (test code=URO) NEGATIVE mg/dL NEGATIVE UA NITRITE DIPSTICK (test code=LOLLY) NEGATIVE NEGATIVE UA LEUKOCYTE ESTERASE W REFLEX (test code=LEUUR) 2+ NEGATIVE UA WBC (test code=WBCU) 11-20 #/HPF 0-5 UA RBC (test code=RBCU) >20 #/HPF 0-5 UA EPITHELIAL CELLS (test code=EPIU) FEW per HPF FEW UA BACTERIA (test code=BACU) FEW #/HPF NONE Urine Source? Clean CatchCBC W/AUTO [id number] 23:46:00* Test Item Value Reference Range Comments WHITE BLOOD CELL (test code=WBC) 8.6 K/mm3 4.5-12.5 RED BLOOD CELL (test code=RBC) 3.11 mill/mm3 4.0-5.8 HEMOGLOBIN (test code=HGB) 9.0 gram/dL 13.0-17.5 HEMATOCRIT (test code=HCT) 27.5 % 42.0-52.0 MEAN CELL VOLUME (test code=MCV) 88.4 fL 80-98 MEAN CELL HGB (test code=MCH) 28.9 picogram 27.0-33.0 MEAN CELL HGB CONCETRATION (test code=MCHC) 32.7 gram/dL 33.0-36.0 RED CELL DISTRIBUTION WIDTH (test code=RDW) 13.5 % 11.6-16.2 RED CELL DISTRIBUTION WIDTH SD (test code=RDW-SD) 43.5 fL 37.0-51.0 PLATELET COUNT (test code=PLT) 273 K/mm3 150-450 MEAN PLATELET VOLUME (test code=MPV) 8.9 fL 6.7-11.0 NEUTROPHIL % (test code=NT%) 66.4 % 39.0-69.0 IMMATURE GRANULOCYTE % (test code=IG%) 1.0 % 0.0-5.0 LYMPHOCYTE % (test code=LY%) 21.2 % 25.0-55.0 MONOCYTE % (test code=MO%) 9.2 % 0.0-10.0 EOSINOPHIL % (test code=EO%) 1.9 % 0.0-5.0 BASOPHIL % (test code=BA%) 0.3 % 0.0-1.0 NUCLEATED RBC % (test code=NRBC%) 0.0 % 0-0 NEUTROPHIL # (test code=NT#) 5.70 K/mm3 1.8-7.7 IMMATURE GRANULOCYTE # (test code=IG#) 0.09 x10 3/uL 0-0.03 LYMPHOCYTE # (test code=LY#) 1.82 K/mm3 1.0-5.0 MONOCYTE # (test code=MO#) 0.79 K/mm3 0-0.8 EOSINOPHIL # (test code=EO#) 0.16 K/mm3 0.0-0.5 BASOPHIL # (test code=BA#) 0.03 K/mm3 0.0-0.2 NUCLEATED RBC # (test code=NRBC#) 0.00 K/mm3 0.0-0.1 [id number] 22:30:00* Test Item Value Reference Range Comments GLUBED (test code=GLUBED) 158 mg/dL 74-106 Performed by certified zmt operator at [facility]
[2018-09-05 13:40] LABS: ANION GAP 12.9 mmol/L (8-16); CALCIUM 8.9 mg/dL (8.4-10.2); CREATININE, SERUM 1.85 mg/dL (0.72-1.25); POTASSIUM 3.9 mmol/L (3.5-5.1)
[2018-09-05 17:10] VITALS: BP 120/74
--- NOTE | 2018-09-06 02:50 | Operative Report ---
DATE OF PROCEDURE: 09/05/2018 SURGEON: Patel Dimas MD SERVICE: Urology. PREOPERATIVE DIAGNOSES: 1. Bilateral hydronephrosis. 2. Bilateral double-J stent. 3. Left nephrolithiasis. 4. Urinary tract infection. 5. Microhematuria. 6. Suspected right UPJ junction. POSTOPERATIVE DIAGNOSES: 1. Bilateral hydronephrosis. 2. Bilateral double-J stent. 3. Left nephrolithiasis. 4. Urinary tract infection. 5. Microhematuria. 6. Suspected right UPJ junction. OPERATION PERFORMED: 1. Cystoscopy and removal of double-J stent from the right side. 2. Right retrograde pyelograms under fluoroscopic control. 3. Right ureteroscopy. 4. Placement of double-J stent, 7-Polish 24 cm long to the right side. 5. Removal of double-J stent from the left side. 6. Left retrograde pyelograms under fluoroscopy control. 7. Left ureteroscopy with laser fragmentation of stone. 8. Placement of double-J stent, 7-Polish 24 cm long to the left side. 9. Interpretation of x-ray, radiologist not present. 10. Supervision of fluoroscopy, radiologist not present. SHOE FOLDER: None. ANESTHESIA: General. CLINICAL INDICATION NOTE: A 43-year-old patient with a history of bilateral hydronephrosis as well as nephrolithiasis and a question of UPJ obstruction on the right side. The patient has a double-J stent on both sides. He was brought for reassessment of both sites. DESCRIPTION OF PROCEDURE AND FINDINGS: After proper level of anesthesia was achieved, the patient was placed in lithotomy position, prepped and draped in a sterile fashion. Urethra inspected is unremarkable. The outlet is normal. Bladder mucosa demonstrates some inflammatory changes, double-J stent present in both sides. The right double-J stent was pulled to the urethral meatus. A wire was passed by and it was removed. An open-end catheter was inserted and retrograde pyelogram demonstrated significant hydronephrosis with very large pelvis on the right side with what appeared to be a UPJ junction obstruction. Guidewire was kept in place and a flexible ureteroscopy was done. The narrow segment of the UP junction was demonstrated and therefore it is elected to reposition the double-J stent. The wire was kept in place and a 7-Polish 24 cm long double-J stent was properly positioned on the right side. Following this, the left double-J stent was removed and open-end catheter inserted. Retrograde pyelogram demonstrating some dilation of the collecting system, some dilation of the ureter as well. A wire was kept in place and placement of flexible ureteroscopy was done. Small stones were identified up in the pelvis and fragmented with holmium laser. Following this, the double-J stent was placed, 7-Polish 24 cm long. Interpretation of x-ray was done by me. Supervision of fluoroscopy done by me. Radiologist not present. Proper position of both double-J stent was verified by x-ray and endoscopy. The patient tolerated procedure well, was transferred in satisfactory condition. He will be followed as an outpatient. MD BOWEN Bower/MODL /[id number]
== END | disposition home or self-care (01) ==
LOC: OR 12:37
PROVIDERS: ATTEND Urology
DX: N13.30 Unspecified hydronephrosis (principal); N20.0 Calculus of kidney; N39.0 Urinary tract infection, site not specified; Z46.6 Encounter for fitting and adjustment of urinary device; Z01.810 Encounter for preprocedural cardiovascular examination; Z79.84 Long term (current) use of oral hypoglycemic drugs
CPT/HCPCS: 36415; 52332; 52356; 74420; 80048; 82948; 87086; 93005; C1758; C2617; J0690; J1100; J2001; J2405; J2704; Q9967